=== PATIENT | female | born 1960 | race Caucasian/White ===

== ENCOUNTER 2019-03-15 15:39 | Inpatient (IN) | payer OTHER ==
[2019-03-15 16:48] LABS: Glucose,Whole Blood 134 mg/dL (75-99)
[2019-03-15] MEDS ORDERED: LIDOCAINE 1% INJ 10MG/ML (20 ML MDV) ONE (17:07)
[2019-03-15] MEDS ORDERED: VERAPAMIL 2.5 MG/ML 2 ML AMP ONE (17:07)
[2019-03-15] MEDS ORDERED: HEPARIN SODIUM 1,000 UN/ML (10ML VL) ONE (17:44)
[2019-03-15] MEDS ORDERED: IV FLUID CONTINUATION 1,000 ML IV ONE (17:47)
[2019-03-15] MEDS ORDERED: MIDAZOLAM (PF) 2 MG/2 ML VIAL IV ONE (17:56)
[2019-03-15] MEDS ORDERED: LIDOCAINE 1% INJ 10MG/ML (20 ML MDV) SQ ONE (18:00)
[2019-03-15] MEDS: VERAPAMIL SYRINGE (5 MG/10 ML) INTRAARTER ONE ×2 (18:01→18:28)
[2019-03-15] MEDS ORDERED: BIVALIRUDIN BOLUS 250 MG/50 ML IV ONE (18:14)
[2019-03-15] MEDS ORDERED: BIVALIRUDIN 250 MG in SODIUM CHLORIDE 0.9% 50 ML IV ONE (18:14)
[2019-03-15] MEDS: NITROGLYCERIN 1000MCG/10ML SYRINGE INTRACORON ONE ×2 (18:15→18:20)
[2019-03-15] MEDS ORDERED: PRASUGREL 10 MG TAB ONE (18:24)
[2019-03-15] MEDS ORDERED: PRASUGREL 10 MG TAB PO ONE (18:26)
[2019-03-15] MEDS ORDERED: IOPAMIDOL-370 125ML BTL INJ ONE (18:27)
[2019-03-15] MEDS ORDERED: MAG HYDROX/AL HYDROX/SIMETH 30 ML CUP PO PRN (18:35)
[2019-03-15] MEDS ORDERED: NITROGLYCERIN SL TABS 0.4 MG TAB SUBLINGUAL PRN (18:35)
[2019-03-15] MEDS ORDERED: RX INFO: IV CONTRAST WAS GIVEN 1 EACH MISC MISCELLANE PRN (18:35)
[2019-03-15] MEDS ORDERED: ATROPINE SULFATE 0.1 MG/ML 10ML SYRINGE IV PRN (18:35)
[2019-03-15] MEDS ORDERED: ZOLPIDEM 5 MG TAB PO PRN (18:35)
[2019-03-15] MEDS ORDERED: SODIUM CHLORIDE 0.9% 1,000 ML IV SCH (18:45)
[2019-03-15] MEDS: ATORVASTATIN 80 MG TAB PO SCH (21:12)
[2019-03-15] MEDS: METOPROLOL TARTRATE 25 MG TAB PO SCH (21:12)
--- NOTE | 2019-03-15 23:58 | CC ---
CARDIAC CATHETERIZATION REPORT DATE OF SERVICE: March 15, 2019 PERFORMING PHYSICIAN: Sanchez Gross MD, mechanic foreman. PROCEDURE PERFORMED: 1. Selective right and left coronary angiogram. 2. Left heart catheterization. 3. Successful stenting of the mid LAD using 3.0 x 18 mm Xience ALLISON with good angiographic results and with excellent angiographic results and reduction of stenosis from 99% to 0%. INDICATION: This is a 58-year-old female patient with end-stage renal disease going to start hemodialysis soon as well as history of diabetes, hypertension, and dyslipidemia, presented today to [facility] Emergency Room with chest discomfort and ruled in for acute non ST elevation myocardial infarction. The troponin was normal. The EKG showed dynamic changes in the anteroseptal leads concerning for severe underlying coronary artery disease. We did check with the parking technician, Dr. Reddy, who did give us the okay to proceed with coronary angiogram. APPROACH: Right radial artery. COMPLICATION: None. LEVEL OF SEDATION: Moderate with sedation length of 30 minutes. PROCEDURE DESCRIPTION: After obtaining an informed consent, the patient was brought to the cardiac label pinker. The right radial artery was cannulated using micropuncture technique, the micropuncture wire passed easily then I placed a 6-Occitan sheath 11 cm in the right radial artery. After that I gave the patient 2 mg of verapamil IA. I did selective right and left coronary angiogram. Selective right coronary angiogram was performed using JR4 catheter and selective left coronary angiogram was performed using JL3 guide. Left heart catheterization was performed using the JR4 catheter which crossed the aortic valve. Then I did pullback across aortic valve after flushing the catheter. The procedure was completed without any complication. SELECTIVE CORONARY ANGIOGRAM: 1. The right coronary artery is a large caliber vessel and is a dominant vessel. The RCA has mild disease only. Distally bifurcates into PDA and PLV branches, both appeared to be angiographically normal. 2. The left main is angiographically normal. It bifurcates into the left circumflex and left anterior descending artery. 3. The left circumflex is a large caliber vessel. It is a nondominant vessel. The circumflex itself appears to be angiographically normal and gives rise into a large OM branch in the midportion which appeared to be normal. 4. The LAD: The proximal LAD appeared to be angiographically normal. The mid LAD appeared to have a tubular lesion in the range of 90% to 95%. The LAD distally appeared to be normal. HEMODYNAMICS: The left ventricular end-diastolic pressure was about 10 mmHg without significant gradient across the aortic valve. PCI OF THE LAD: Anticoagulation was initiated using Angiomax. Subsequently I did engage the left main using JL3 guide. I did wire the LAD using a run-through wire. After that, I did balloon angioplasty using 3.0 x 15 mm balloon before I deployed 3.0 x 18 mm Xience ALLISON where the stent was positioned under fluoroscopy guidance and deployed under 18 atmospheres for 20 seconds with the following angiogram showing good angiographic results. The procedure was completed without any complication. CONCLUSION: 1. Acute non-ST elevation myocardial infarction in this 58-year-old female patient with end-stage renal disease, diabetes, hypertension, and dyslipidemia. 2. Critical disease involving the mid LAD. I did successful stenting of the mid LAD with a Xience drug-eluting stent, which was 3.0 x 18 mm with an excellent angiographic results and reduction of stenosis from 99% to 0%. POSTPROCEDURE MANAGEMENT: 1. Dual anti-platelet therapy. 2. Risk factors modifications. 3. Follow up with the patient. MMODL / IJN: [id number] /
--- NOTE | 2019-03-16 00:25 | LTR ---
DATE OF SERVICE: March 15, 2019. Dear Dr. Durand: Ms. Ro Adams underwent a heart catheterization and that revealed critical disease involving the mid LAD. I did successful stenting of the LAD with good angiographic results and without any complication. Thank you for allowing me to participate in her care and please do not hesitate to call if you have any question or concerns. Sincerely, JAM / KIERRAN: [id number] /
[2019-03-16 05:55] LABS: Basophils % (A) 1 %; Eosinophils # (A) 0.2 k/uL (0-0.7); Eosinophils % (A) 3 %; HCT 38.3 % (34.0-46.0); HGB 11.9 gm/dL (11.4-16.0); Lymphocytes # (A) 1.6 k/uL (1.0-4.8); Lymphocytes % (A) 24 %; MCH 27.9 pg (25.0-35.0); MCHC 30.9 g/dL (31.0-37.0); MCV 90.3 fL (80.0-100.0); Monocytes # (A) 0.3 k/uL (0-1.0); Monocytes % (A) 4 %; Neutrophils # (A) 4.5 k/uL (1.3-7.7); Neutrophils % (A) 66 %; Platelet Count 233 k/uL (150-450); RBC 4.24 m/uL (3.80-5.40); RDW 15.3 % (11.5-15.5); WBC 6.8 k/uL (3.8-10.6)
[2019-03-16 06:12] LABS: Calcium 8.9 mg/dL (8.4-10.2); Potassium 4.2 mmol/L (3.5-5.1)
--- NOTE | 2019-03-16 07:57 | P.PN ---
Progress Note - Text Progress Note Date: 03/16/19 This is a 58-year-old female patient with end-stage renal disease, diabetes, hypertension, and dyslipidemia, presented to [facility] with a chest discomfort and ruled in for acute non-ST patient myocardial infarction but subsequently she was transferred to [facility] where she underwent a heart catheterization and was found to have critical disease involving the mid LAD. She underwent successful stenting of the mid LAD. On follow-up with her today, she is asymptomatic. The chest discomfort has resolved completely. She is on dual antiplatelet therapy along with statin. The creatinine is 3.6. An echo was performed at the other hospital and revealed normal LV function. She continues to follow with the nephrology team and she possibly need to start dialysis very soon. From the cardiac standpoint of view, the patient can be transferred out of the ICU. Assessment #1 acute non-ST patient myocardial infarction #2 end-stage renal disease #3 multiple comorbid conditions including diabetes, hypertension, and dyslipidemia #4 history of smoking Plan #1 continue the current medical regimen #2 transferred out of the ICU #3 possible discharge in the next 24 hours
[2019-03-16] MEDS: METOPROLOL TARTRATE 25 MG TAB PO SCH ×2 (08:33→20:39)
[2019-03-16] MEDS: ASPIRIN 325 MG TAB PO SCH (08:33)
[2019-03-16 12:10] VITALS: BMI 26.7
--- NOTE | 2019-03-16 13:08 | P.PN ---
Subjective Patient is seen in follow-up for chronic kidney disease stage V. Patient states she follows with a respite worker out of [place] but now wants to follow-up in our office. She underwent cardiac catheterization yesterday and had a stent placed to the LAD. She has been voiding. No vomiting or diarrhea. No chest pain or shortness of breath. No edema. Vital signs are stable. General: The patient appeared well nourished and normally developed. HEENT: Head exam is unremarkable. Neck is without jugular venous distension. LUNGS: Lungs are clear to auscultation and percussion. Breath sounds decreased. HEART: Rate and Rhythm are regular. First and second heart sounds normal. No murmurs, rubs or gallops. ABDOMEN: Abdominal exam reveals normal bowel sounds. Non-tender and non- distended. No evidence of peritonitis. EXTREMITITES: No clubbing, cyanosis, or edema. Objective - Vital Signs Vital signs: Vital Signs Temp 98.0 F 03/16/19 08:00 Pulse 56 L 03/16/19 12:00 Resp 16 03/16/19 12:00 BP 115/45 03/16/19 12:00 Pulse Ox 97 03/16/19 12:00 Intake & Output 03/15/19 03/16/19 03/16/19 18:59 06:59 18:59 Intake Total 114.16 750 300 Output Total 0 1125 Balance 114.16 -375 300 Weight 70.45 kg 70.7 kg 70.7 kg Intake: IV 114.16 Intake, IV Titration 750 300 Amount Bivalirudin 250 mg In 50 Sodium Chloride 0.9% 50 ml @ 0 mls/hr IV .[employer] Rx#:[id number] Sodium Chloride 0.9% 1, 700 300 000 ml @ 75 mls/hr IV . [id number] [facility] Rx#:[id number] Output: Urine 0 1125 - Labs CBC & Chem 7: 03/16/19 05:17 03/16/19 05:17 Labs: Abnormal Lab Results - Last 24 Hours (Table) 03/15/19 03/16/19 03/16/19 Range/Units 16:44 05:17 05:17 MCHC 30.9 L (31.0-37.0) g/dL Chloride 115 H (98-107) mmol/L Carbon Dioxide 17 L (22-30) mmol/L BUN 43 H (7-17) mg/dL Creatinine 3.63 H (0.52-1.04) mg/dL Glucose 116 H (74-99) mg/dL POC Glucose (mg/dL) 134 H (75-99) mg/dL Assessment and Plan Plan: Assessment: 1. Chronic kidney disease stage V etiologies likely nephrosclerosis. Patient was following with a respite worker out of [place]. She now wants to follow-up in our office. 2. Coronary artery disease status post cardiac catheterization with stent placement to the LAD. 3. Metabolic acidosis secondary to chronic kidney disease. 4. Hypertension with chronic kidney disease. Controlled. Plan: Hep-Lock IV fluids. Add oral sodium bicarbonate. Check UA. Stable to be discharged home from nephrology standpoint. Follow up outpatient in the next 1-2 weeks for preparation for renal replacement therapy. No urgent need for renal replacement therapy at this time.
[2019-03-16] MEDS: SODIUM BICARBONATE TAB 650 MG TAB PO SCH ×2 (13:42→20:40)
[2019-03-16 14:06] VITALS: PULSE 59
[2019-03-16] MEDS ORDERED: CLOPIDOGREL 75 MG TAB PO ONE (14:39)
[2019-03-16] MEDS ORDERED: PRASUGREL 10 MG TAB PO SCH (18:36)
--- NOTE | 2019-03-16 19:27 | P.HPIM ---
History of Present Illness H&P Date: 03/16/19 Chief Complaint: Chest Pain Patient is a 58-year-old female with a known history of hypertension, history of DVT, chronic kidney disease stage V initially presents to [facility] with complaints of chest pain mainly left retrosternal squeezing pain and felt heaviness in the left arm and was found to have non-ST elevation VA. Patient was also having nausea and diaphoresis. No headache or dizziness or lightheadedness. Denied any history of prior coronary artery disease. Patient was eventually transferred to [facility] for cardiac intervention. Patient underwent cardiac catheterization and successful stenting of mid LAD. Currently patient denied any complaints of chest pain or shortness of breath. Patient is being followed by cardiology and nephrology was consulted due to stage V chronic kidney disease. 2-D echo cardiac exam showed normal ejection fraction BUN 43 and creatinine 3.63 Review of Systems Constitutional: Patient denies any fever or chills . No generalized weakness or weight loss. Abdomen: Patient denied nausea vomiting and diarrhea and abdominal pain. Cardiovascular: Patient denies any chest pain or short of breath no palpitations. Respiratory: patient denied any cough is from production. No shortness of breath Neurologic: Patient denied any numbness or tingling headache. Musculoskeletal: Patient denies any complaints of joint swelling or deformity. Skin: Negative Psychiatric: Negative Endocrine: No heat or cold intolerance. No recent weight gain. Genitourinary: No dysuria or hematuria. All other 14 point ROS negative except the above Past Medical History Past Medical History: Coronary Artery Disease (CAD), Deep Vein Thrombosis (DVT), Hyperlipidemia, Hypertension, Myocardial Infarction (VA), Pneumonia, Renal Disease Last Myocardial Infarction Date:: 03/15/19 History of Any Multi-Drug Resistant Organisms: None Reported Past Surgical History: Section, Heart Catheterization With Stent Past Anesthesia/Blood Transfusion Reactions: No Reported Reaction Date of Last Stent Placement:: 03/15/19 Past Psychological History: No Psychological Hx Reported Smoking Status: Current every day smoker Past Alcohol Use History: None Reported Past Drug Use History: Marijuana - Past Family History Father Family Medical History: CVA/TIA Mother Family Medical History: Cancer, CVA/TIA, Diabetes Mellitus, Dialysis Additional Family Medical History / Comment(s): Colon Cancer Medications and Allergies Home Medications Medication Instructions Recorded Confirmed Type Atorvastatin Calcium [Lipitor] 20 mg PO DAILY 03/16/19 03/16/19 History Cholecalciferol [Vitamin D3 (25 1,000 unit PO DAILY 03/16/19 03/16/19 History Mcg = 1000 Iu)] Hydrochlorothiazide [Hydrodiuril] 12.5 mg PO DAILY 03/16/19 03/16/19 History amLODIPine [Norvasc] 10 mg PO DAILY 03/16/19 03/16/19 History Allergies Allergy/AdvReac Type Severity Reaction Status Date / Time No Known Allergies Allergy Verified 03/15/19 20:22 Physical Exam Vitals: Vital Signs Temp Pulse Resp BP Pulse Ox 03/16/19 11:00 53 L 16 140/93 98 03/16/19 10:00 51 L 18 112/75 94 L 03/16/19 09:00 54 L 18 112/75 95 03/16/19 08:00 98.0 F 56 L 18 120/61 94 L 03/16/19 07:00 61 52 H 120/61 93 L 03/16/19 06:00 68 20 108/52 94 L 03/16/19 05:00 64 12 108/52 96 03/16/19 04:00 61 18 139/77 93 L 03/16/19 03:00 98.7 F 63 26 H 114/71 95 03/16/19 02:00 58 L 21 107/73 96 03/16/19 01:00 59 L 14 133/71 94 L 03/16/19 00:00 98.4 F 69 20 111/58 94 L 03/15/19 23:32 94 L 03/15/19 23:00 61 17 131/70 95 03/15/19 22:30 56 L 19 145/86 94 L 03/15/19 22:00 62 7 L 151/101 96 03/15/19 21:30 62 14 98 03/15/19 21:15 67 20 147/83 97 03/15/19 21:00 63 18 135/83 96 03/15/19 20:45 148/91 03/15/19 20:30 63 9 L 152/96 98 03/15/19 20:15 57 L 15 145/101 98 03/15/19 20:00 98.5 F 61 15 145/88 98 03/15/19 19:45 63 7 L 141/85 98 03/15/19 19:30 65 27 H 119/74 97 03/15/19 19:15 62 4 L 134/82 95 03/15/19 19:00 62 11 L 139/87 92 L 03/15/19 18:40 65 10 L 139/87 92 L 03/15/19 17:00 98.3 F 64 10 L 139/91 97 03/15/19 16:42 14 97 Intake and Output 03/15/19 03/16/19 03/16/19 22:59 06:59 14:59 Intake Total 339.16 525 300 Output Total 550 575 Balance -210.84 -50 300 Intake: IV 114.16 Intake, IV Titration 225 525 300 Amount Bivalirudin 250 mg In 50 Sodium Chloride 0.9% 50 ml @ 0 mls/hr IV .[employer] Rx#:[id number] Sodium Chloride 0.9% 1, 175 525 300 000 ml @ 75 mls/hr IV . [id number] [facility] Rx#:[id number] Output: Urine 550 575 Other: Weight 70.45 kg 70.7 kg PHYSICAL EXAMINATION: Patient is lying in the bed comfortably, no acute distress, awake alert and oriented.. HEENT: Normocephalic. Neck is supple. Pupils reactive. Nostrils clear. Oral cavity is moist. Ears reveal no drainage. Neck reveals no JVD, carotid bruits, or thyromegaly. CHEST EXAMINATION: Trachea is central. Symmetrical expansion. Lung hua clear to auscultation and percussion. CARDIAC: Normal S1, S2 with no gallops. No murmurs ABDOMEN: Soft. Bowel sounds normal. No organomegaly. No abdominal bruits. Extremities: reveal no edema. No clubbing or cyanosis Neurologically awake, alert, oriented x3 with well-coordinated movements. No focal deficits noted Skin: No rash or skin lesions. Psychiatric: Coperative. Nonsuicidal Musculoskeletal: No joint swelling or deformity. Normal range of motion. Results CBC & Chem 7: 03/16/19 05:17 03/16/19 05:17 Labs: Abnormal Lab Results - Last 24 Hours (Table) 03/15/19 03/16/19 03/16/19 Range/Units 16:44 05:17 05:17 MCHC 30.9 L (31.0-37.0) g/dL Chloride 115 H (98-107) mmol/L Carbon Dioxide 17 L (22-30) mmol/L BUN 43 H (7-17) mg/dL Creatinine 3.63 H (0.52-1.04) mg/dL Glucose 116 H (74-99) mg/dL POC Glucose (mg/dL) 134 H (75-99) mg/dL Thrombosis Risk Factor Assmnt - DVT/VTE Prophylaxis DVT/VTE Prophylaxis: Pharmacologic Prophylaxis ordered - Choose All That Apply Any of the Below Risk Factors Present?: Yes Each Factor Represents 1 point: Acute VA, Age 41-60 years, Obesity (BMI >25) Other Risk Factors: Yes Each Risk Factor Represents 3 Points: History of DVT/PE Thrombosis Risk Factor Assessment Total Risk Factor Score: 6 Thrombosis Risk Factor Assessment Level: High Risk Assessment and Plan Assessment: Acute non-ST elevated VA. Status post cardiac catheterization and stenting of the mid LAD. Chronic kidney disease stage V Hypertension Hyperlipidemia History of DVT Nicotine addiction History of marijuana use DVT prophylaxis Plan: Patient is currently status post mid LAD stent placement on 03/15/2019. Patient will be continued on aspirin Plavix, statins and metoprolol. Nephrology has seen the patient due to chronic kidney stage V and is planning for renal replacement therapy in the near future. Continue with telemetry monitoring. Further conditions based on the clinical course. Smoking cessation has been counseled extensively. Time with Patient: Greater than 30
[2019-03-16] MEDS: ATORVASTATIN 80 MG TAB PO SCH (20:40)
[2019-03-16] MEDS: NICOTINE 21MG/24HR PATCH TRANSDERM SCH (21:54)
[2019-03-17 01:58] LABS: Appearance,Urine Clear (Clear); Bilirubin,Urine Negative (Negative); Blood,Urine Trace (Negative); Color,Urine Light Yellow; Glucose,Urine (UA) Negative (Negative); Ketones,Urine Negative (Negative); Leukocyte Esterase,Urine Trace (Negative); Nitrite,Urine Negative (Negative); Protein,Urine 1+ (Negative); RBC,Urine 1 /hpf (0-5); Specific Gravity,Urine 1.008 (1.001-1.035); Squamous Epithelial Cell,Urine 2 /hpf (0-4); Urobilinogen,Urine <2.0 mg/dL (<2.0); WBC,Urine 4 /hpf (0-5)
[2019-03-17 07:03] LABS: Basophils # (A) 0.1 k/uL (0-0.2); Basophils % (A) 1 %; Eosinophils # (A) 0.3 k/uL (0-0.7); Eosinophils % (A) 4 %; HCT 38.2 % (34.0-46.0); HGB 12.2 gm/dL (11.4-16.0); Lymphocytes # (A) 1.7 k/uL (1.0-4.8); Lymphocytes % (A) 21 %; MCH 27.9 pg (25.0-35.0); MCV 87.2 fL (80.0-100.0); Mean Platelet Volume 7.2; Monocytes # (A) 0.4 k/uL (0-1.0); Monocytes % (A) 5 %; Neutrophils # (A) 5.8 k/uL (1.3-7.7); Neutrophils % (A) 69 %; Platelet Count 245 k/uL (150-450); RBC 4.38 m/uL (3.80-5.40); RDW 15.3 % (11.5-15.5); WBC 8.3 k/uL (3.8-10.6)
[2019-03-17 07:19] LABS: Calcium 9.1 mg/dL (8.4-10.2); Potassium 4.6 mmol/L (3.5-5.1)
[2019-03-17] MEDS: ASPIRIN 325 MG TAB PO SCH (08:37)
[2019-03-17] MEDS: METOPROLOL TARTRATE 25 MG TAB PO SCH (08:37)
[2019-03-17] MEDS: SODIUM BICARBONATE TAB 650 MG TAB PO SCH (08:37)
[2019-03-17] MEDS: NICOTINE 21MG/24HR PATCH TRANSDERM SCH (08:37)
[2019-03-17 08:42] VITALS: RESP 16; TEMP 97
[2019-03-17] MEDS ORDERED: CLOPIDOGREL 75 MG TAB PO SCH (09:00)
--- NOTE | 2019-03-17 10:34 | P.PN ---
Subjective Patient is seen in follow-up for chronic kidney disease stage V. Patient states she follows with a audio/video engineer out of [place] but now wants to follow-up in our office. She underwent cardiac catheterization on March 15 and had a stent placed to the LAD. She has been voiding. No vomiting or diarrhea. No chest pain or shortness of breath. No edema. Vital signs are stable. General: The patient appeared well nourished and normally developed. HEENT: Head exam is unremarkable. Neck is without jugular venous distension. LUNGS: Lungs are clear to auscultation and percussion. Breath sounds decreased. HEART: Rate and Rhythm are regular. First and second heart sounds normal. No murmurs, rubs or gallops. ABDOMEN: Abdominal exam reveals normal bowel sounds. Non-tender and non- distended. No evidence of peritonitis. EXTREMITITES: No clubbing, cyanosis, or edema. Objective - Vital Signs Vital signs: Vital Signs Temp 97 F L 03/17/19 08:00 Pulse 59 L 03/16/19 14:00 Resp 16 03/17/19 08:00 BP 125/66 03/17/19 08:00 Pulse Ox 96 03/17/19 08:00 Intake & Output 03/16/19 03/17/19 03/17/19 18:59 06:59 18:59 Intake Total 600 1240 360 Output Total 575 Balance 25 1240 360 Weight 70.7 kg 74.2 kg Intake: Intake, IV Titration 600 Amount Sodium Chloride 0.9% 1, 600 000 ml @ 75 mls/hr IV . [id number] [facility] Rx#:[id number] Oral 1240 360 Output: Urine 575 Other: # Voids 2 2 - Labs CBC & Chem 7: 03/17/19 06:24 03/17/19 06:24 Labs: Abnormal Lab Results - Last 24 Hours (Table) 03/17/19 03/17/19 Range/Units 01:41 06:24 Chloride 113 H (98-107) mmol/L Carbon Dioxide 18 L (22-30) mmol/L BUN 45 H (7-17) mg/dL Creatinine 3.71 H (0.52-1.04) mg/dL Glucose 120 H (74-99) mg/dL Urine Protein 1+ H (Negative) Urine Blood Trace H (Negative) Ur Leukocyte Esterase Trace H (Negative) Assessment and Plan Plan: Assessment: 1. Chronic kidney disease stage V etiologies likely nephrosclerosis. Patient was following with a audio/video engineer out of [place]. She now wants to follow-up in our office. Etiology is nephrosclerosis most likely. She does have 1+ proteinuria on UA. 2. Coronary artery disease status post cardiac catheterization with stent placement to the LAD. 3. Metabolic acidosis secondary to chronic kidney disease. 4. Hypertension with chronic kidney disease. Controlled. Plan: Maintain oral sodium bicarbonate. Check renal ultrasound. Stable to be discharged home from nephrology standpoint. Follow up outpatient in the next 1-2 weeks for preparation for renal replacement therapy. No urgent need for renal replacement therapy at this time.
[2019-03-17 12:05] VITALS: BP 105/63
--- NOTE | 2019-03-17 15:33 | P.PN ---
Subjective Progress Note Date: 03/17/19 This is a 58-year-old female patient with end-stage renal disease, diabetes, hypertension, and dyslipidemia, presented to [facility] with a chest discomfort and ruled in for acute non-ST patient myocardial infarction but subsequently she was transferred to [facility] where she underwent a heart catheterization and was found to have critical disease involving the mid LAD. She underwent successful stenting of the mid LAD. On follow-up with her today, she is asymptomatic. The chest discomfort has resolved completely. She is on dual antiplatelet therapy along with statin. An echo was performed at the other hospital and revealed normal LV function. She continues to follow with the nephrology team and she possibly need to start dialysis very soon. Hemodynamically stable. Objective - Vital Signs Vital signs: Vital Signs Temp 97 F L 03/17/19 08:00 Pulse 59 L 03/16/19 14:00 Resp 16 03/17/19 12:00 BP 105/63 03/17/19 12:00 Pulse Ox 99 03/17/19 12:00 Intake & Output 03/16/19 03/17/19 03/17/19 18:59 06:59 18:59 Intake Total 600 1240 720 Output Total 575 Balance 25 1240 720 Weight 70.7 kg 74.2 kg Intake: Intake, IV Titration 600 Amount Sodium Chloride 0.9% 1, 600 000 ml @ 75 mls/hr IV . [id number] [facility] Rx#:[id number] Oral 1240 720 Output: Urine 575 Other: # Voids 2 2 1 - Exam PHYSICAL EXAMINATION: GENERAL: 58-year-old female in no acute distress at the time of my examination HEENT: Head is atraumatic, normocephalic. Pupils equal, round. Sclera ani cteric. Conjunctiva are clear. Mucous membranes of the mouth are moist. Neck is supple. There is no elevated jugular venous pressure. No carotid bruit is heard. HEART EXAMINATION: Heart S1, S2 normal. No murmur or gallop heard. CHEST EXAMINATION: Lungs are clear to auscultation and precussion. No chest wall tenderness is noted on palpation or with deep breathing. ABDOMEN: Soft, nontender. Bowel sounds are heard. No organomegaly noted. EXTREMITIES: 2+ peripheral pulses with no evidence of peripheral edema and no calf tenderness noted. Right radial site clean and dry, good distal pulse NEUROLOGIC patient is awake, alert and oriented 3 . . - Labs CBC & Chem 7: 03/17/19 06:24 03/17/19 06:24 Labs: Abnormal Lab Results - Last 24 Hours (Table) 03/17/19 03/17/19 Range/Units 01:41 06:24 Chloride 113 H (98-107) mmol/L Carbon Dioxide 18 L (22-30) mmol/L BUN 45 H (7-17) mg/dL Creatinine 3.71 H (0.52-1.04) mg/dL Glucose 120 H (74-99) mg/dL Urine Protein 1+ H (Negative) Urine Blood Trace H (Negative) Ur Leukocyte Esterase Trace H (Negative) Assessment and Plan Plan: Assessment and plan #1 non-ST elevation SC status post angioplasty and stenting of the LAD #2 end-stage renal disease #3 diabetes #4 hypertension #5 hyperlipidemia #6 nicotine dependence Plan Patient may be discharged home today. We'll make her a follow-up appointment to see Dr. Santo in the office post discharge. DNP note has been reviewed, I agree with a documented findings and plan of care. Patient was seen and examined.
--- NOTE | 2019-03-17 16:23 | US ---
EXAMINATION TYPE: US kidneys/renal and bladder DATE OF EXAM: 03/17/2019 COMPARISON: Prior ultrasound dated 08/11/2009 CLINICAL HISTORY: juan. EXAM MEASUREMENTS: Right Kidney: 8.4 x 3.9 x 3.8 cm Left Kidney: 7.7 x 3.0 x 3.6 cm Right Kidney: measures small, cortical thinning Left Kidney: echogenic, measures small, cortical thinning Bladder: wnl as seen, not fully distended There is loss of normal cortical medullary differentiation. Cortical echotexture is increased. IMPRESSION: Findings compatible with medical renal disease. Kidneys have decreased in size compared to prior exam .
== END 2019-03-17 14:40 | disposition home health service (06) | DRG 246 ==
LOC: 2SICU 16:27 → 3SCARD 03-16 15:43
PROVIDERS: ADMIT Family Medicine; ATTEND Family Medicine
PROC: 027034Z Dilation of Coronary Artery, One Artery with Drug-eluting Intraluminal Device, Percutaneous Approach (ICD-10-PCS; principal; 2019-03-15 17:30)
PROC: 4A023N7 Measurement of Cardiac Sampling and Pressure, Left Heart, Percutaneous Approach (ICD-10-PCS; principal; 2019-03-15 17:30)
PROC: B2111ZZ Fluoroscopy of Multiple Coronary Arteries using Low Osmolar Contrast (ICD-10-PCS; principal; 2019-03-15 17:30)
PROC: B2151ZZ Fluoroscopy of Left Heart using Low Osmolar Contrast (ICD-10-PCS; principal; 2019-03-15 17:30)
DX: I21.4 Non-ST elevation (NSTEMI) myocardial infarction (principal); N18.6 End stage renal disease; I12.0 Hypertensive chronic kidney disease with stage 5 chronic kidney disease or end stage renal disease; E87.2 Acidosis; I25.10 Atherosclerotic heart disease of native coronary artery without angina pectoris; E11.22 Type 2 diabetes mellitus with diabetic chronic kidney disease; E78.5 Hyperlipidemia, unspecified; F17.200 Nicotine dependence, unspecified, uncomplicated; I25.2 Old myocardial infarction; Z79.899 Other long term (current) drug therapy; Z80.0 Family history of malignant neoplasm of digestive organs; Z83.3 Family history of diabetes mellitus; Z86.718 Personal history of other venous thrombosis and embolism; Z71.6 Tobacco abuse counseling
CPT/HCPCS: 76770; 80048; 81001; 85025; 93458; C1874

== ENCOUNTER → 2019-03-26 | Outpatient (CLI) | payer OTHER ==
[2019-03-26 15:58] LABS: LDL Cholesterol,Calculated 40.2 mg/dL (0.0-131.0); VLDL Calculation 42.8 mg/dL (5.00-40.00)
== END | disposition home or self-care (01) ==
LOC: LABWHC1 08:51
PROVIDERS: ATTEND Internal Medicine Interventional Cardiology
DX: E78.2 Mixed hyperlipidemia (principal)
CPT/HCPCS: 36415; 80061; 84450; 84460

== ENCOUNTER → 2019-04-08 | Outpatient (CLI) | payer OTHER ==
--- NOTE | 2019-04-08 18:09 | CT ---
EXAMINATION TYPE: CT soft tissue neck wo con DATE OF EXAM: 04/08/2019 COMPARISON: None HISTORY: Cervical lymphadenopathy. BB placed on regions of interest. CT DLP: 366 mGycm CONTRAST: None TECHNIQUE: Axial images at 3 mm thick sections. Reconstructed images in the coronal p roxie and sagittal plane are reviewed. FINDINGS: Limited CT sections are obtained the lung apices. The lung apices appear clear. CT neck: The torus tubarius and fossa of Rosenmuller are normal. Business System Manager spaces are normal. Para nasal sinuses and mastoid air cells are clear. Left parotid gland appears normal. Right parotid gland appears atrophic and fatty infiltrated. Subman dibular glands, are normal. BBs are at the inferior aspects of the bilateral submandibular glands. Pa rapharyngeal spaces are normal. No suspicious adenopathy is evident. The hypopharynx appears within normal limits. Vocal cord level appear symmetrical. Thyroid as visualized is normal. Osseous structures are normal. Emphysematous changes are within the lung hua. Scattered lymph node s with fatty hilum are within the bilateral axillary regions. Mediastinum appears unremarkable. Supra clavicular region is unremarkable. IMPRESSIONS: 1. No suspicious abnormality at the level of the BBs. Normal salivary gland. We present at this level . 2. The right parotid gland appears atrophic.
== END | disposition home or self-care (01) ==
LOC: RADCTMAIN 15:23
PROVIDERS: ATTEND Family Medicine
DX: R59.1 Generalized enlarged lymph nodes (principal)
CPT/HCPCS: 70490

== ENCOUNTER → 2019-06-04 | Outpatient (CLI) | payer OTHER ==
[2019-06-04 13:25] LABS: Anisocytosis Slight; HCT 39.7 % (34.0-46.0); HGB 12.6 gm/dL (11.4-16.0); Hypochromasia Slight; MCHC 31.8 g/dL (31.0-37.0); MCV 91.2 fL (80.0-100.0); Mean Platelet Volume 7.4; Platelet Count 228 k/uL (150-450); RBC 4.35 m/uL (3.80-5.40); RDW 16.8 % (11.5-15.5); WBC 8.6 k/uL (3.8-10.6)
[2019-06-04 13:54] LABS: Appearance,Urine Cloudy (Clear); Bilirubin,Urine Negative (Negative); Blood,Urine Small (Negative); Color,Urine Yellow; Glucose,Urine (UA) 1+ (Negative); Hyaline Casts,Urine 3 /lpf (0-2); Ketones,Urine Negative (Negative); Leukocyte Esterase,Urine Negative (Negative); Mucus,Urine Rare /hpf; Nitrite,Urine Negative (Negative); Protein,Urine 3+ (Negative); RBC,Urine 1 /hpf (0-5); Specific Gravity,Urine 1.017 (1.001-1.035); Squamous Epithelial Cell,Urine 2 /hpf (0-4); Urobilinogen,Urine <2.0 mg/dL (<2.0); WBC,Urine 1 /hpf (0-5)
[2019-06-04 19:00] LABS: Iron Saturation 17.45 (12.00-45.00)
[2019-06-04 19:09] LABS: Vitamin D 25 Hydroxy 19.9 ng/mL (30.0-100.0)
[2019-06-04 19:11] LABS: African American GFR (CKD) 14.7 (60.0-200.0); Albumin/Globulin Ratio 1.6 (1.60-3.17); Anion Gap 7.9 mmol/L (4.00-12.00); BUN/Creat Ratio 11.89 Ratio (12.00-20.00); Calcium 8.9 mg/dL (8.7-10.3); Carbon Dioxide 18.1 mmol/L (21.6-31.8); Globulin 2.5 g/dL (1.6-3.3); Magnesium 1.7 mg/dL (1.5-2.4); Phosphorus 4.9 mg/dL (2.4-5.1); Potassium 5.8 mmol/L (3.5-5.5); Total Bilirubin 0.3 mg/dL (0.3-1.2); Total Protein 6.5 g/dL (6.2-8.2); Uric Acid 5.9 mg/dL (2.9-7.7)
[2019-06-04 20:31] LABS: Creatinine,Urine Random 147.7 mg/dL
[2019-06-04 20:33] LABS: Total Protein,Urine Random 366.1 mg/dL (0.0-13.5)
== END | disposition home or self-care (01) ==
LOC: LABWHC1 13:04
PROVIDERS: ATTEND Nurse Practitioner Family
DX: N39.0 Urinary tract infection, site not specified (principal); N18.5 Chronic kidney disease, stage 5; D63.1 Anemia in chronic kidney disease; R80.9 Proteinuria, unspecified; E55.9 Vitamin D deficiency, unspecified; M10.9 Gout, unspecified; N25.81 Secondary hyperparathyroidism of renal origin
CPT/HCPCS: 36415; 80053; 81001; 82306; 82570; 82728; 83540; 83550; 83735; 83970; 84100; 84156; 84550; 85027

== ENCOUNTER 2019-11-11 11:45 | Day surgery (SDC) | payer OTHER ==
[2019-11-09 15:48] VITALS: BMI 27.4
[~2019-11-11 11:45] MED LIST: DEXAMETHASONE SOD PHOSPHATE 10 MG/ML 1 ML VIAL IV ONE; HEPARIN SODIUM,PORCINE 5,000 UNIT/ML 1 ML VIAL SQ ONE; HYDROmorphone 0.5 MG/0.5 ML SYRINGE IVP PRN; LACTATED RINGERS 1,000 ML IV SCH; LIDOCAINE 1% 20 ML VIAL (10MG/ML) FOR IV START INTRADERMA PRN; MIDAZOLAM 2 MG/2 ML VIAL IV PRN; ONDANSETRON 4 MG/2 ML VIAL IVP ONE; fentaNYL (PF) 50 MCG/ML 2 ML AMP IV PRN
[2019-11-11 12:23] VITALS: TEMP 97.6
[2019-11-11] MEDS ORDERED: SODIUM CHLORIDE 0.9% 1,000 ML IV ONE (12:30)
[2019-11-11] MEDS ORDERED: PROPOFOL 10 MG/ML 20 ML VIAL IV ONE (13:55)
[2019-11-11] MEDS ORDERED: diphenhydrAMINE 50 MG/ML 1 ML VIAL ONE (13:55)
[2019-11-11] MEDS ORDERED: fentaNYL (PF) 50 MCG/ML 2 ML AMP ONE (13:55)
[2019-11-11] MEDS ORDERED: MIDAZOLAM 2 MG/2 ML VIAL ONE (13:55)
[2019-11-11] MEDS ORDERED: ePHEDrine SULFATE/0.9% NACL/PF 50 MG/5 ML SYRINGE IV ONE (13:55)
[2019-11-11] MEDS ORDERED: BUPIVACAINE (PF) 0.25% 30 ML VIAL SQ ONE ×3 (14:20→14:26)
[2019-11-11] MEDS ORDERED: MINERAL OIL 1 APPLIC/ML OIL TOPICAL ONE ×2 (14:21→14:40)
[2019-11-11] MEDS ORDERED: HYDROcodone/APAP 5-325MG 1 EACH TAB PO PRN (15:07)
[2019-11-11] MEDS ORDERED: NALOXONE 0.4 MG/ML 1 ML VIAL IV PRN (15:07)
--- NOTE | 2019-11-11 15:09 | P.OP ---
Date of Procedure: 11/11/19 Procedure(s) Performed: PREOPERATIVE DIAGNOSIS: Renal failure POSTOPERATIVE DIAGNOSIS: Same PROCEDURE: Peritoneal dialysis catheter insertion SURGEON: Veronika EBL: Minimal ANESTHESIA: Sedation plus local COMPLICATIONS: None OPERATIVE PROCEDURE: The patient was placed in the operative table in the supine position. Her abdomen was prepped and draped in usual sterile fashion. A small vertical incision was made in the left periumbilical location. Dissection down through the subcutaneous tissues took place using electrocautery. The anterior rectus was divided vertically using the scalpel. The rectus was bluntly. The posterior rectus was visualized. An 0 Vicryl pursestring was placed. A small opening in the posterior rectus fascia and peritoneum took place using a Metzenbaum scissors. There were no adhesions to the suture that was placed. The pigtail catheter was advanced into the pelvis over a stylette. No resistance was met. The inner cuff was secured to the fascia using the 0 Vicryl pursestring that was placed. The catheter was tunneled to an exit site in the right lateral lower quadrant. The catheter was connected to the 1 L bag of saline and approximated 800 mL of saline was easily introduced into the peritoneal cavity. The fluid was then allowed to evacuate. The majority of the fluid was returned. The anterior rectus fascia was then reapproximated using a running 0 Vicryl stitch. The subcutaneous tissues reprepped using 3-0 Vicryl sutures and the skin using 4-0 Monocryl sutures. The outpatient dialysis adapter was applied to the end of the catheter. A sterile dressings then applied after Steri-Strips were placed over the incision. DISPOSITION: Stable to recovery room
[2019-11-11] MEDS ORDERED: HYDROcodone/APAP 5-325MG 1 EACH TAB PO ONE (15:33)
[2019-11-11 16:23] VITALS: RESP 18
[2019-11-11 16:29] VITALS: BP 128/75; PULSE 57
== END 2019-11-11 16:38 | disposition home or self-care (01) ==
LOC: OR 11:45
PROVIDERS: ATTEND Surgery
DX: I12.9 Hypertensive chronic kidney disease with stage 1 through stage 4 chronic kidney disease, or unspecified chronic kidney disease (principal); E11.22 Type 2 diabetes mellitus with diabetic chronic kidney disease; N18.9 Chronic kidney disease, unspecified; I25.10 Atherosclerotic heart disease of native coronary artery without angina pectoris; N25.81 Secondary hyperparathyroidism of renal origin; E78.5 Hyperlipidemia, unspecified; F17.210 Nicotine dependence, cigarettes, uncomplicated; Z95.828 Presence of other vascular implants and grafts; Z79.82 Long term (current) use of aspirin; Z79.02 Long term (current) use of antithrombotics/antiplatelets; Z79.899 Other long term (current) drug therapy; Z82.49 Family history of ischemic heart disease and other diseases of the circulatory system; Z80.0 Family history of malignant neoplasm of digestive organs; Z84.1 Family history of disorders of kidney and ureter; Z82.3 Family history of stroke
CPT/HCPCS: 84132; 49421; C1752; J2250; J1200; J1644; J1100; J2405; J3010; J2704

== ENCOUNTER 2021-10-15 11:17 | Inpatient (IN) | payer MEDICARE, OTHER ==
[2021-10-15] MEDS ORDERED: DEXAMETHASONE SOD PHOSPHATE 10 MG/ML 1 ML VIAL IVP STA (11:51)
--- NOTE | 2021-10-15 12:09 | ED ---
SOB HPI - General Chief Complaint: Shortness of Breath Stated Complaint: Covid+/Weakness Time Seen by Provider: 10/15/21 11:23 Source: patient, EMS, RN notes reviewed Mode of arrival: EMS Limitations: no limitations - History of Present Illness Initial Comments: This is a pleasant 61-year-old female who presents with shortness of breath, severe cough, and generalized weakness. Patient was diagnosed with COVID-19. Patient was seen here on Friday and received a monoclonal antibody. Patient states that she actually has been sick for a few weeks. Patient states she is now unable to walk due to the generalized weakness. Patient denies any chest pa in but does have shortness of breath. No nausea or vomiting. Does have diminished appetite. Generalized body aching. No problems with bowel when she urination. No rashes or lesions. No changes in vision or hearing. Mild headache. No neck stiffness. Multiple comorbidities as listed in the past medical and surgical history. - Related Data Home Medications Medication Instructions Recorded Confirmed Metoprolol Tartrate [Lopressor] 12.5 mg PO BID 11/09/19 10/15/21 Torsemide [Demadex] 20 mg PO DAILY 11/09/19 10/15/21 calcitrioL [Rocaltrol] 0.5 mcg PO MOWEFR 11/09/19 10/15/21 Aspirin EC [Ecotrin Low Dose] 81 mg PO DAILY 10/15/21 10/15/21 Atorvastatin [Lipitor] 80 mg PO DAILY 10/15/21 10/15/21 Calcium Acetate [Phoslo] 1,334 mg PO TID 10/15/21 10/15/21 Calcium Acetate [Phoslo] 667 mg PO DAILY PRN 10/15/21 10/15/21 Nitroglycerin Sl Tabs [Nitrostat] 0.4 mg SL Q5M PRN 10/15/21 10/15/21 Ondansetron [Zofran] 4 mg PO Q6H PRN 10/15/21 10/15/21 traZODone HCL 50 - 100 mg PO HS PRN 10/15/21 10/15/21 Previous Rx's Medication Instructions Recorded Albuterol Inhaler [Ventolin Hfa 1 puff INHALATION RT-QID #8 gm 10/12/21 Inhaler] Allergies Allergy/AdvReac Type Severity Reaction Status Date / Time No Known Allergies Allergy Verified 10/15/21 14:17 Review of Systems ROS Statement: Those systems with pertinent positive or pertinent negative responses have been documented in the HPI. ROS Other: All systems not noted in ROS Statement are negative. Past Medical History Past Medical History: Coronary Artery Disease (CAD), Diabetes Mellitus, Deep Vein Thrombosis (DVT), Hyperlipidemia, Hypertension, Myocardial Infarction ([place]), Pneumonia, Renal Disease Additional Past Medical History / Comment(s): varicose veins, diet control diabe tic, renal failure, Last Myocardial Infarction Date:: 03/15/19 History of Any Multi-Drug Resistant Organisms: None Reported Past Surgical History: Section, Heart Catheterization With Stent Additional Past Surgical History / Comment(s): one cardiac stent, vein surgery aristides legs Past Anesthesia/Blood Transfusion Reactions: No Reported Reaction Date of Last Stent Placement:: 03/15/19 Past Psychological History: No Psychological Hx Reported Smoking Status: Former smoker Past Alcohol Use History: None Reported Past Drug Use History: Marijuana - Past Family History Mother Family Medical History: Cancer, Dialysis Additional Family Medical History / Comment(s): Colon Cancer General Exam - General Exam Comments Initial Comments: 61-year-old female who appears to be in distress secondary to shortness of breath or cough. Limitations: no limitations General appearance: alert, in distress Head exam: Present: atraumatic, normocephalic, normal inspection Eye exam: Present: normal appearance, PERRL, EOMI. Absent: scleral icterus, conjunctival injection, periorbital swelling ENT exam: Present: normal exam, mucous membranes moist, TM's normal bilaterally, normal external ear exam Neck exam: Present: normal inspection, full ROM. Absent: tenderness, meningismus, lymphadenopathy Respiratory exam: Present: respiratory distress, rales, rhonchi. Absent: wheezes, stridor Cardiovascular Exam: Present: regular rate, normal rhythm, normal heart sounds. Absent: systolic murmur, diastolic murmur, rubs, gallop, clicks GI/Abdominal exam: Present: soft, normal bowel sounds. Absent: distended, tenderness, guarding, rebound, rigid Extremities exam: Present: normal inspection, full ROM, normal capillary refill. Absent: tenderness, pedal edema, joint swelling, calf tenderness Back exam: Present: normal inspection Neurological exam: Present: alert, oriented X3, CN II-XII intact Psychiatric exam: Present: normal affect, normal mood Skin exam: Present: warm, dry, intact, normal color. Absent: rash Course Vital Signs 10/15/21 10/15/21 11:31 13:18 Temperature 98.9 F 98 F Pulse Rate 65 79 Respiratory 24 20 Rate Blood Pressure 92/49 99/58 O2 Sat by Pulse 97 94 L Oximetry Medical Decision Making - Medical Decision Making Patient presents with cough, body aches, diminished appetite, generalized weakness, likely from COVID-19. Patient received a monoclonal antibody on Friday but is actually worse. Patient will likely need to be admitted. - Lab Data Result diagrams: 10/15/21 12:07 10/15/21 12:07 Lab Results 10/15/21 10/15/21 10/15/21 Range/Units 12:07 12:07 12:07 WBC 5.8 (3.8-10.6) k/uL RBC 4.59 (3.80-5.40) m/uL Hgb 13.8 (11.4-16.0) gm/dL Hct 41.3 (34.0-46.0) % MCV 89.9 (80.0-100.0) fL MCH 30.1 (25.0-35.0) pg MCHC 33.5 (31.0-37.0) g/dL RDW 14.7 (11.5-15.5) % Plt Count 148 L (150-450) k/uL MPV 8.5 Neutrophils % 80 % Lymphocytes % 12 % Monocytes % 5 % Eosinophils % 1 % Basophils % 1 % Neutrophils # 4.6 (1.3-7.7) k/uL Lymphocytes # 0.7 L (1.0-4.8) k/uL Monocytes # 0.3 (0-1.0) k/uL Eosinophils # 0.1 (0-0.7) k/uL Basophils # 0.1 (0-0.2) k/uL PT 9.7 (9.0-12.0) sec INR 0.9 (<1.2) APTT 22.5 (22.0-30.0) sec Sodium 134 L (137-145) mmol/L Potassium 3.3 L (3.5-5.1) mmol/L Chloride 103 (98-107) mmol/L Carbon Dioxide 10 L (22-30) mmol/L Anion Gap 21 mmol/L BUN 92 H (7-17) mg/dL Creatinine 11.19 H* (0.52-1.04) mg/dL Est GFR (CKD-EPI)AfAm 4 (>60 ml/min/1.73 sqM) Est GFR (CKD-EPI)NonAf 3 (>60 ml/min/1.73 sqM) Glucose 153 H (74-99) mg/dL Plasma Lactic Acid Tyson (0.7-2.0) mmol/L Calcium 7.9 L (8.4-10.2) mg/dL Magnesium 1.9 (1.6-2.3) mg/dL Total Bilirubin 0.5 (0.2-1.3) mg/dL AST 37 H (14-36) U/L ALT 20 (4-34) U/L Alkaline Phosphatase 50 (38-126) U/L Troponin I (0.000-0.034) ng/mL NT-Pro-B Natriuret Pep pg/mL Total Protein 6.2 L (6.3-8.2) g/dL Albumin 3.1 L (3.5-5.0) g/dL 10/15/21 10/15/21 10/15/21 Range/Units 12:07 12:07 12:07 WBC (3.8-10.6) k/uL RBC (3.80-5.40) m/uL Hgb (11.4-16.0) gm/dL Hct (34.0-46.0) % MCV (80.0-100.0) fL MCH (25.0-35.0) pg MCHC (31.0-37.0) g/dL RDW (11.5-15.5) % Plt Count (150-450) k/uL MPV Neutrophils % % Lymphocytes % % Monocytes % % Eosinophils % % Basophils % % Neutrophils # (1.3-7.7) k/uL Lymphocytes # (1.0-4.8) k/uL Monocytes # (0-1.0) k/uL Eosinophils # (0-0.7) k/uL Basophils # (0-0.2) k/uL PT (9.0-12.0) sec INR (<1.2) APTT (22.0-30.0) sec Sodium (137-145) mmol/L Potassium (3.5-5.1) mmol/L Chloride (98-107) mmol/L Carbon Dioxide (22-30) mmol/L Anion Gap mmol/L BUN (7-17) mg/dL Creatinine (0.52-1.04) mg/dL Est GFR (CKD-EPI)AfAm (>60 ml/min/1.73 sqM) Est GFR (CKD-EPI)NonAf (>60 ml/min/1.73 sqM) Glucose (74-99) mg/dL Plasma Lactic Acid Tyson 1.5 (0.7-2.0) mmol/L Calcium (8.4-10.2) mg/dL Magnesium (1.6-2.3) mg/dL Total Bilirubin (0.2-1.3) mg/dL AST (14-36) U/L ALT (4-34) U/L Alkaline Phosphatase (38-126) U/L Troponin I 0.026 (0.000-0.034) ng/mL NT-Pro-B Natriuret Pep 634 pg/mL Total Protein (6.3-8.2) g/dL Albumin (3.5-5.0) g/dL - EKG Data EKG Comments: EKG was done at 1154 and reviewed with ED attending physician. Patient had artifact noted. No evidence of ST elevation. Ventricular rate 71. Normal intervals otherwise. Patient does have flipped T waves noted in V5 and V6 when compared to the previous study from October 12 Disposition Clinical Impression: COVID-19, Debility, Chronic renal failure Disposition: ADMITTED IP TO THIS HOSP Condition: Fair Time of Disposition: 15:12
[2021-10-15 12:37] LABS: Albumin 3.1 g/dL (3.5-5.0); Calcium 7.9 mg/dL (8.4-10.2); Magnesium 1.9 mg/dL (1.6-2.3); Potassium 3.3 mmol/L (3.5-5.1); Total Bilirubin 0.5 mg/dL (0.2-1.3); Total Protein 6.2 g/dL (6.3-8.2)
--- NOTE | 2021-10-15 12:43 | XR ---
EXAMINATION TYPE: XR chest 1V portable DATE OF EXAM: 10/15/2021 COMPARISON: Chest x-ray 10/12/2021 HISTORY: Cough, Covid positive, weakness TECHNIQUE: Single frontal view of the chest is obtained. FINDINGS: Patchy bilateral airspace disease is noted. No evident pneumothorax or pleural effusion. C ardiac style silhouette is stable. Aorta is dense. There are overlying artifacts. IMPRESSION: Findings similar to prior exam, correlate for pneumonia
[2021-10-15 12:55] LABS: INR 0.9 (<1.2); Partial Thromboplastin Time 22.5 sec (22.0-30.0); Prothrombin Time 9.7 sec (9.0-12.0)
[2021-10-15 13:01] LABS: Basophils # (A) 0.1 k/uL (0-0.2); Basophils % (A) 1 %; Eosinophils # (A) 0.1 k/uL (0-0.7); Eosinophils % (A) 1 %; HCT 41.3 % (34.0-46.0); HGB 13.8 gm/dL (11.4-16.0); Lymphocytes # (A) 0.7 k/uL (1.0-4.8); Lymphocytes % (A) 12 %; MCH 30.1 pg (25.0-35.0); MCHC 33.5 g/dL (31.0-37.0); MCV 89.9 fL (80.0-100.0); Mean Platelet Volume 8.5; Monocytes # (A) 0.3 k/uL (0-1.0); Monocytes % (A) 5 %; Neutrophils # (A) 4.6 k/uL (1.3-7.7); Neutrophils % (A) 80 %; Platelet Count 148 k/uL (150-450); RBC 4.59 m/uL (3.80-5.40); RDW 14.7 % (11.5-15.5); WBC 5.8 k/uL (3.8-10.6)
[2021-10-15] MEDS ORDERED: BENZONATATE 100 MG CAP PO STA (13:23)
[2021-10-15] MEDS ORDERED: ALBUTEROL HFA INHALER INHALATION PRN (15:05)
[2021-10-15 15:56] LABS: Magnesium 1.9 mg/dL (1.6-2.3)
[2021-10-15] MEDS: ACETAMINOPHEN TAB 500 MG TAB PO PRN ×2 (16:45→23:02)
[2021-10-15] MEDS: ENOXAPARIN 30 MG/0.3 ML SYRINGE SQ SCH (16:45)
[2021-10-15] MEDS ORDERED: traZODone HCL 50 MG TAB PO PRN (20:21)
[2021-10-15] MEDS ORDERED: CALCIUM ACETATE 667 MG TAB PO PRN (20:21)
[2021-10-15] MEDS ORDERED: NITROGLYCERIN SL TABS 0.4 MG TAB SUBLINGUAL PRN (20:21)
[2021-10-15] MEDS: METOPROLOL TARTRATE 12.5 MG TAB PO SCH (21:26)
[2021-10-15] MEDS: DIALYSIS (PERIT 1.5%) 2,000 ML 30 G/2,000 ML BAG INTRAPERIT SCH ×2 (22:55)
[2021-10-16] MEDS: ONDANSETRON 4 MG TAB PO PRN (04:22)
[2021-10-16] MEDS: DIALYSIS (PERIT 1.5%) 2,000 ML 30 G/2,000 ML BAG INTRAPERIT SCH ×3 (05:10→17:59)
[2021-10-16 09:05] LABS: HCT 40.4 % (37.2-46.3); HGB 13.7 g/dL (12.0-15.0); MCHC 33.9 g/dL (32.0-37.0); MCV 85.6 fL (80.0-97.0); Mean Platelet Volume 10.4 fL (9.5-12.2); Platelet Count 175 X 10*3/uL (140-440); RBC 4.72 X 10*6/uL (4.10-5.20); RDW 14.8 % (11.5-14.5); WBC 2.71 X 10*3/uL (4.50-10.00)
[2021-10-16] MEDS: DEXAMETHASONE SOD PHOSPHATE 10 MG/ML 1 ML VIAL IV SCH (09:39)
[2021-10-16] MEDS: ASPIRIN 81 MG PO SCH (09:40)
[2021-10-16] MEDS: METOPROLOL TARTRATE 12.5 MG TAB PO SCH ×2 (09:40→21:37)
[2021-10-16] MEDS: CALCIUM ACETATE 667 MG TAB PO SCH ×3 (09:40→17:20)
[2021-10-16] MEDS: ENOXAPARIN 30 MG/0.3 ML SYRINGE SQ SCH (09:40)
[2021-10-16] MEDS: ATORVASTATIN 80 MG TAB PO SCH (09:40)
[2021-10-16] MEDS: TORSEMIDE 20 MG TAB PO SCH (09:40)
[2021-10-16 09:57] LABS: C Reactive Protein 11.8 mg/dL (0.00-0.80)
[2021-10-16 09:59] LABS: African American GFR (CKD) 4.2 (60.0-200.0); Albumin 3.4 g/dL (3.8-4.9); Albumin/Globulin Ratio 1.13 (1.60-3.17); Anion Gap 23.3 mmol/L (10.00-18.00); BUN/Creat Ratio 9.11 Ratio (12.00-20.00); Blood Urea Nitrogen 92.9 mg/dL (9.0-27.0); Calcium 8.6 mg/dL (8.7-10.3); Carbon Dioxide 12.7 mmol/L (20.0-27.5); Non-African American GFR(CKD) 3.6 (60.0-200.0); Potassium 3.6 mmol/L (3.5-5.5); Total Bilirubin 0.2 mg/dL (0.30-1.20); Total Protein 6.4 g/dL (6.2-8.2)
[2021-10-16] MEDS: ALBUTEROL HFA INHALER INHALATION SCH ×3 (12:07→20:44)
[2021-10-16 12:08] LABS: Basophils # (A) 0.01 X 10*3/uL (0.00-0.10); Basophils % (A) 0.4 %; Eosinophils # (A) 0 X 10*3/uL (0.04-0.35); Eosinophils % (A) 0 %; Lymphocytes # (A) 0.47 X 10*3/uL (0.90-5.00); Lymphocytes % (A) 17.3 %; Monocytes # (A) 0.16 X 10*3/uL (0.20-1.00); Monocytes % (A) 5.9 %; Neutrophils # (A) 2.05 X 10*3/uL (1.80-7.70); Neutrophils % (A) 75.7 %
[2021-10-16] MEDS ORDERED: POTASSIUM CHLORIDE ER 20 MEQ TAB.ER PO STA (12:41)
--- NOTE | 2021-10-16 12:44 | P.NPCON ---
History of Present Illness - Reason for Consult end stage renal disease - History of Present Illness Reason for consultation: End-stage renal disease History of present illness: Patient is a 61-year-old female seen in consultation for end-stage renal disease. She is maintained on peritoneal dialysis. Patient tested positive for coronavirus on 10/12/2021. At that time she was discharged home from the hospital. Patient presented to the hospital with generalized weakness. Patient was unable to do peritoneal dialysis at home. She states she hasn't had dialysis in about a week and a half. She admits to productive cough. She's been afebrile this admission. Blood pressure stable. No vomiting or diarrhea. Oral intake is poor. Blood cultures positive for staph epidermidis. Denies abdominal pain. Vital signs are stable. General: On nasal cannula. HEENT: Head exam is unremarkable. LUNGS: Breath sounds decreased. HEART: Rate and Rhythm are regular. ABDOMEN: Soft, no distention. EXTREMITITES: No edema. Past Medical History Past Medical History: Coronary Artery Disease (CAD), Diabetes Mellitus, Deep Vein Thrombosis (DVT), Hyperlipidemia, Hypertension, Myocardial Infarction ([place]), Pneumonia, Renal Disease Additional Past Medical History / Comment(s): varicose veins, diet control diabetic, renal failure, Last Myocardial Infarction Date:: 03/15/19 History of Any Multi-Drug Resistant Organisms: None Reported Past Surgical History: Section, Heart Catheterization With Stent Additional Past Surgical History / Comment(s): one cardiac stent, vein surgery aristides legs Past Anesthesia/Blood Transfusion Reactions: No Reported Reaction Date of Last Stent Placement:: 03/15/19 Past Psychological History: No Psychological Hx Reported Smoking Status: Former smoker Past Alcohol Use History: None Reported Additional Past Alcohol Use History / Comment(s): smoking 1/2-1 PPD, has smoked for 40 yrs Past Drug Use History: Marijuana - Past Family History Mother Family Medical History: Cancer, Dialysis Additional Family Medical History / Comment(s): Colon Cancer Medications and Allergies Home Medications Medication Instructions Recorded Confirmed Type Metoprolol Tartrate [Lopressor] 12.5 mg PO BID 11/09/19 10/15/21 History Torsemide [Demadex] 20 mg PO DAILY 11/09/19 10/15/21 History calcitrioL [Rocaltrol] 0.5 mcg PO MOWEFR 11/09/19 10/15/21 History Albuterol Inhaler [Ventolin Hfa 1 puff INHALATION RT-QID #8 gm 10/12/21 10/15/21 Rx Inhaler] Aspirin EC [Ecotrin Low Dose] 81 mg PO DAILY 10/15/21 10/15/21 History Atorvastatin [Lipitor] 80 mg PO DAILY 10/15/21 10/15/21 History Calcium Acetate [Phoslo] 1,334 mg PO TID 10/15/21 10/15/21 History Calcium Acetate [Phoslo] 667 mg PO DAILY PRN 10/15/21 10/15/21 History Nitroglycerin Sl Tabs [Nitrostat] 0.4 mg SL Q5M PRN 10/15/21 10/15/21 History Ondansetron [Zofran] 4 mg PO Q6H PRN 10/15/21 10/15/21 History traZODone HCL 50 - 100 mg PO HS PRN 10/15/21 10/15/21 History Allergies Allergy/AdvReac Type Severity Reaction Status Date / Time No Known Allergies Allergy Verified 10/15/21 14:17 Physical Exam Vitals: Vital Signs Temp Pulse Pulse Resp BP BP Pulse Ox 10/16/21 08:00 17 10/16/21 05:18 97.7 F 56 L 18 118/63 96 10/16/21 05:12 97.5 F L 55 L 14 118/63 95 10/16/21 02:00 95.5 F L 58 L 19 119/70 97 10/15/21 21:20 97.4 F L 59 L 14 115/69 96 10/15/21 16:59 97.8 F 87 20 149/54 93 L 10/15/21 13:18 98 F 79 20 99/58 94 L Intake and Output 10/15/21 10/16/21 10/16/21 22:59 06:59 14:59 Other: Weight 74.843 kg Results - Lab Results Most recent lab results Calcium 8.6 mg/dL (8.7-10.3) L 10/16/21 06:33 Magnesium 1.9 mg/dL (1.6-2.3) 10/15/21 12:07 Magnesium 1.9 mg/dL (1.6-2.3) 10/15/21 12:07 10/16/21 06:33 10/16/21 06:33 Assessment and Plan Plan: Assessment: 1. End-stage renal disease maintained on peritoneal dialysis. 2. Acute hypoxic respiratory failure. 3. COVID-19 pneumonia. 4. Metabolic acidosis secondary to chronic kidney disease. 5. 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 6. Gram-positive bacteremia. 7. Hypokalemia from poor intake and PD losses. Plan:. Maintain current PD exchanges - 2 L every 6 hours and 1.5% dextrose solution. Check dialysate cell count, culture and Gram stain. Consults infectious disease. Check phosphorus level. Follow-up cultures. Replace potassium. Add oral bicarb. Start gentle IV hydration. Thank you for the consultation. I will continue to follow the patient with you during her hospital stay.
[2021-10-16] MEDS: DEXTROSE 5% IN WATER 1,000 ML with SODIUM BICARB (1 MEQ/ML) 150 ML IV SCH (13:38)
[2021-10-16] MEDS: SODIUM BICARBONATE TAB 650 MG TAB PO SCH ×3 (13:38→21:37)
--- NOTE | 2021-10-16 14:03 | HP ---
HISTORY AND PHYSICAL CHIEF COMPLAINT: Shortness of breath, malaise, myalgias and generalized weakness. HISTORY OF PRESENT ILLNESS: This is another admission for this 61-year-old white female with stage 5 CKD, on dialysis. She is doing peritoneal dialysis and has missed some of this several days because of illness. She was diagnosed with COVID-19 and did come to the emergency room on October 12 and did receive a monoclonal antibody infusion. She continued to have trouble at home with weakness, shortness of breath, and malaise. She came back to the emergency room and was acutely ill. She had a fever and hypotension. REVIEW OF SYSTEMS: She is simply states that she feels terrible with weakness, myalgias and shortness of breath. Past medical history, family history, personal and social histories are otherwise unremarkable except that she is diabetic and she has COPD. She has hypertension. MEDICATIONS: Can be found in her medical listing from her history. She has been a smoker in the past and continues to be. PHYSICAL EXAMINATION: Blood pressure is 90/40 with a pulse 76 and regular. Respirations were 36 and temperature is 99.7. In general she appeared to be dehydrated, chronically ill. She had generalized weakness. Head, ears, eyes, nose, mouth and throat were normal except for dry mucous membranes. NECK: Supple. Neck veins were not distended. Chest demonstrated decreased breath sounds with scattered rales and rhonchi. Cardiac exam was normal. Abdomen is soft and nontender. Extremities: Normal. Neurologically other than being weak, she is intact. IMPRESSION: She is admitted to the hospital with diagnoses: 1. COVID-19. 2. Dehydration. 3. Chronic obstructive pulmonary disease. 4. Hypotension. 5. Stage 5 CKD on dialysis. PLAN: 1. Bedrest. 2. IV fluids. 3. Consult Pulmonology and Nephrology. 4. Diuresis. MMODL / IJN: [id number] /
--- NOTE | 2021-10-16 14:08 | PN ---
PROGRESS NOTE DATE OF SERVICE: 10/16/2021 CHIEF COMPLAINT: COVID-19 with weakness, malaise and renal failure. HISTORY OF PRESENT ILLNESS: This lady is still extremely weak and complaining of myalgias and shortness of breath. She has had no vomiting. PHYSICAL EXAMINATION: She remains dry. Chest is clear. Cardiac exam is normal. Abdomen is soft, nontender. IMPRESSION: 1. COVID pneumonia. 2. Stage 5 CKD. 3. Dehydration. PLAN: Continue with IV fluids and wait for Nephrology to handle her dialysis. MMODL / IJN: [id number] /
[2021-10-16] MEDS ORDERED: PIPERACILLIN-TAZOBACTAM 3.375 GM in SODIUM CHLORIDE 0.9% 100 ML IVPB ONE (16:15)
--- NOTE | 2021-10-16 17:22 | P.CNPUL ---
History of Present Illness Consult date: 10/16/21 Requesting physician: Derick Durand Reason for consult: dyspnea Chief complaint: Shortness of breath, COVID-19 History of present illness: This is a 61-year-old white female patient with past medical history of hypertension, hyperlipidemia, previous MN, diabetes mellitus type 2, coronary artery disease, former smoker, end-stage renal disease on peritoneal dialysis who came into the emergency department yesterday on 10/15/2021 for evaluation of worsening shortness of breath, cough, generalized weakness. Patient was diagnosed with COVID-19, she was here on 10/11/2021 and received a monoclonal antibody. Patient reports onset of symptoms a week ago. Patient has been increasingly weak, she has been unable to do her peritoneal dialysis, and reportedly she has not done her peritoneal dialysis in several days. Denies any chest pain, she does have shortness of breath, no nausea or vomiting, she's had diminished appetite, she reports a generalized body aching. She was va ccinated with the Materna vaccine 2, has not received a booster. Reports a mild headache, no neck stiffness. 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 She is not requiring 2 L of oxygen and her pulse ox is 96%, afebrile, hemodynamically she's been stable, appears to be in no acute distress, but appears to be weak, peritoneal dialysis was done per nursing staff here in the hospital and the fluid was sent for analysis, and cultures. Nursing staff reports the peritoneal fluid being very bright yellow, but clear. In addition patient was experiencing urinary re tention, Parker catheter has been inserted with return of 1 L in urine output. Chest x-ray on admission showed patchy bilateral airspace disease, no evident pneumothorax or pleural effusion. Initial lab work showed a white blood cell count of 5.8, hemoglobin of 13.8, platelet count of 148, INR was 0.9, fibrinogen level was 666, d-dimer was 3.6, sodium is 134, potassium is 3.3, chloride is 103, CO2 is 10, anion gap was 21, BUN is 92, creatinine is 11.19, plasma lactic acid was 1.5, AST was 37, ALT was 20, alkaline phosphatase was 50, LDH was 1502, CRP was 16, troponin was 0.026, proBNP was 634. Pro-calcitonin level was elevated slightly at 0.54 however patient is end-stage renal dialysis patient. Blood culture was drawn showing Staphylococcus epidermidis, and another blood culture from the same date on 10/15/2021 showed gram-positive bacilli and gram- positive cocci in clusters. Zosyn has been added. Review of Systems All systems: negative Constitutional: Denies chills, Denies fever Eyes: denies blurred vision, denies pain Ears, nose, mouth and throat: Denies headache, Denies sore throat Cardiovascular: Denies chest pain, Denies shortness of breath Respiratory: Reports dyspnea, Denies cough Gastrointestinal: Reports loss of appetite, Denies abdominal pain, Denies diarrhea, Denies nausea, Denies vomiting Genitourinary: Reports difficulty voiding, Reports dysuria, Reports pelvic pain, Denies hematuria Musculoskeletal: Denies myalgias Integumentary: Denies pruritus, Denies rash Neurological: Denies numbness, Denies weakness Psychiatric: Denies anxiety, Denies depression Endocrine: Denies fatigue, Denies weight change Past Medical History Past Medical History: Coronary Artery Disease (CAD), Diabetes Mellitus, Deep Vein Thrombosis (DVT), Hyperlipidemia, Hypertension, Myocardial Infarction ([place]), Pneumonia, Renal Disease Additional Past Medical History / Comment(s): varicose veins, diet control diabetic, renal failure, Last Myocardial Infarction Date:: 03/15/19 History of Any Multi-Drug Resistant Organisms: None Reported Past Surgical History: Section, Heart Catheterization With Stent Additional Past Surgical History / Comment(s): one cardiac stent, vein surgery aristides legs Past Anesthesia/Blood Transfusion Reactions: No Reported Reaction Date of Last Stent Placement:: 03/15/19 Past Psychological History: No Psychological Hx Reported Smoking Status: Former smoker Past Alcohol Use History: None Reported Additional Past Alcohol Use History / Comment(s): smoking 1/2-1 PPD, has smoked for 40 yrs Past Drug Use History: Marijuana - Past Family History Mother Family Medical History: Cancer, Dialysis Additional Family Medical History / Comment(s): Colon Cancer Medications and Allergies Home Medications Medication Instructions Recorded Confirmed Type Metoprolol Tartrate [Lopressor] 12.5 mg PO BID 11/09/19 10/15/21 History Torsemide [Demadex] 20 mg PO DAILY 11/09/19 10/15/21 History calcitrioL [Rocaltrol] 0.5 mcg PO MOWEFR 11/09/19 10/15/21 History Albuterol Inhaler [Ventolin Hfa 1 puff INHALATION RT-QID #8 gm 10/12/21 10/15/21 Rx Inhaler] Aspirin EC [Ecotrin Low Dose] 81 mg PO DAILY 10/15/21 10/15/21 History Atorvastatin [Lipitor] 80 mg PO DAILY 10/15/21 10/15/21 History Calcium Acetate [Phoslo] 1,334 mg PO TID 10/15/21 10/15/21 History Calcium Acetate [Phoslo] 667 mg PO DAILY PRN 10/15/21 10/15/21 History Nitroglycerin Sl Tabs [Nitrostat] 0.4 mg SL Q5M PRN 10/15/21 10/15/21 History Ondansetron [Zofran] 4 mg PO Q6H PRN 10/15/21 10/15/21 History traZODone HCL 50 - 100 mg PO HS PRN 10/15/21 10/15/21 History Allergies Allergy/AdvReac Type Severity Reaction Status Date / Time No Known Allergies Allergy Verified 10/15/21 14:17 Physical Exam Vitals: Vital Signs Temp Pulse Pulse Resp BP BP Pulse Ox 10/16/21 12:40 98 F 58 L 16 114/69 10/16/21 08:00 17 10/16/21 05:18 97.7 F 56 L 18 118/63 96 10/16/21 05:12 97.5 F L 55 L 14 118/63 95 10/16/21 02:00 95.5 F L 58 L 19 119/70 97 10/15/21 21:20 97.4 F L 59 L 14 115/69 96 Intake and Output 10/16/21 10/16/21 10/16/21 06:59 14:59 22:59 Intake Total 300 Output Total 1000 Balance -700 Intake: Oral 300 Output: Urine 1000 Uretheral (Parker) 1000 GENERAL EXAM: Alert, very pleasant, 61-year-old white female, on 2 L of oxygen with a pulse ox of 96%, appears weak, she is laying in bed, moaning, but she was able to get up and answer questions about her history of present illness comfortable in no apparent distress. HEAD: Normocephalic/atraumatic. EYES: Normal reaction of pupils, equal size. Conjunctiva pink, sclera white. NOSE: Clear with pink turbinates. THROAT: No erythema or exudates. NECK: No masses, no JVD, no thyroid enlargement, no adenopathy. CHEST: No chest wall deformity. Symmetrical expansion. LUNGS: Equal air entry with bibasilar crackles CVS: Regular rate and rhythm, normal S1 and S2, no gallops, no murmurs, no rubs ABDOMEN: Soft, nontender. No hepatosplenomegaly, normal bowel sounds, no guarding or rigidity. EXTREMITIES: No clubbing, no edema, no cyanosis, 2+ pulses and upper and lower extremities. MUSCULOSKELETAL: Muscle strength and tone normal. SPINE: No scoliosis or deformity SKIN: No rashes CENTRAL NERVOUS SYSTEM: Alert and oriented -3. No focal deficits, tone is normal in all 4 extremities. PSYCHIATRIC: Alert and oriented -3. Appropriate affect. Intact judgment and insight. Results - Laboratory Findings CBC and BMP: 10/16/21 06:33 10/16/21 06:33 PT/INR, D-dimer PT 9.7 sec (9.0-12.0) 10/15/21 12:07 INR 0.9 (<1.2) 10/15/21 12:07 D-Dimer 3.66 mg/L FEU (<0.60) H 10/15/21 12:07 Abnormal lab findings: Abnormal Labs 10/15/21 10/15/21 10/15/21 12:07 12:07 12:07 WBC RDW Plt Count 148 L Plt Count Comment Lymphocytes # 0.7 L Monocytes # Eosinophils # Fibrinogen 666 H D-Dimer 3.66 H Sodium 134 L Potassium 3.3 L Carbon Dioxide 10 L Anion Gap BUN 92 H Creatinine 11.19 H* Est GFR (CKD-EPI)AfAm Est GFR (CKD-EPI)NonAf BUN/Creatinine Ratio Glucose 153 H Calcium 7.9 L Total Bilirubin AST 37 H Lactate Dehydrogenase C-Reactive Protein Total Protein 6.2 L Albumin 3.1 L Albumin/Globulin Ratio Procalcitonin 10/15/21 10/15/21 10/16/21 12:07 12:07 06:33 WBC 2.71 L RDW 14.8 H Plt Count Plt Count Comment DECREASED A Lymphocytes # 0.47 L Monocytes # 0.16 L Eosinophils # 0 L Fibrinogen D-Dimer Sodium Potassium Carbon Dioxide Anion Gap BUN Creatinine Est GFR (CKD-EPI)AfAm Est GFR (CKD-EPI)NonAf BUN/Creatinine Ratio Glucose Calcium Total Bilirubin AST Lactate Dehydrogenase 1502 H C-Reactive Protein 16.0 H Total Protein Albumin Albumin/Globulin Ratio Procalcitonin 0.54 H 10/16/21 06:33 WBC RDW Plt Count Plt Count Comment Lymphocytes # Monocytes # Eosinophils # Fibrinogen D-Dimer Sodium 133 L Potassium Carbon Dioxide 12.7 L Anion Gap 23.30 H BUN 92.9 H Creatinine 10.2 H* Est GFR (CKD-EPI)AfAm 4.2 L Est GFR (CKD-EPI)NonAf 3.6 L BUN/Creatinine Ratio 9.11 L Glucose 239 H Calcium 8.6 L Total Bilirubin 0.20 L AST Lactate Dehydrogenase C-Reactive Protein 11.80 H Total Protein Albumin 3.4 L Albumin/Globulin Ratio 1.13 L Procalcitonin - Diagnostic Findings Chest x-ray: report reviewed, image reviewed Assessment and Plan Plan: Assessment: #1. Acute hypoxic respiratory failure related to acute COVID-19 pneumonia, patient is a vaccinated adult status post completed Moderna vaccination 2, no booster. Presented to the emergency department on 10/15/2021 with one week history of symptoms of COVID, worsening shortness of breath, cough, body aches, headache, weakness. Patient is status post monoclonal antibody infusion on 10/11/2021. Patient is not a candidate for Remdesivir related to end-stage renal disease #2. Rule out possibility of underlying bacterial infection, patient had mildly elevated pro calcitonin level, empirically placed on Zosyn. In the setting of end-stage renal disease patients pro calcitonin level may not be significantly elevated #3. 2 positive blood cultures, on the same day, with Staphylococcus epidermidis, and gram-positive bacillus and gram-positive cocci, also likely related to skin contamination. #4. Dehydration and metabolic acidosis,, related to poor oral intake currently on IV fluids in the form of D5W with 3 A of sodium bicarbonate at 50 ML per hour #5. End-stage renal disease on peritoneal dialysis, patient has missed one week's worth of peritoneal dialysis. Peritoneal fluid was sent for cultures #6. Hypertension #7. Diabetes mellitus type 2 #8. History of coronary artery disease with previous stenting #9. Previous history of DVT, not on any chronic anticoagulation #10. Previous history of MN #11. Former smoker Plan: Continue Decadron 6 mg daily Patient is not a candidate for Remdesivir related to her GFR of less than 30 Continue supportive treatment, Continue prophylactic Lovenox at 30 mg D-dimer was noted, we will order lower extremity Dopplers Continue multivitamins We will add Zosyn empirically Blood cultures have been noted, and most likely contaminated with skin petr We'll continue to follow her clinical course and make further recommendations I performed a history & physical examination of the patient and discussed their management with my nurse practitioner, Lexy Callahan. I reviewed the nurse practitioner's note and agree with the documented findings and plan of care. Lung sounds are positive for dim breath sounds throughout the lung hua. The findings and the impression was discussed with the patient. I attest to the documentation by the nurse practitioner. Time with Patient: Greater than 30
[2021-10-16] MEDS: LACTULOSE 20 GM/30 ML CUP PO SCH (21:36)
[2021-10-16] MEDS: ACETAMINOPHEN TAB 500 MG TAB PO PRN (21:37)
[2021-10-16] MEDS ORDERED: [UNRECOGNIZED DRUG - OTHER] INTRAPERIT ONE (22:00)
[2021-10-16] MEDS ORDERED: HEPARIN SODIUM INTRAPERIT ONE (22:00)
[2021-10-17] MEDS ORDERED: PIPERACILLIN-TAZOBACTAM 3.375 GM in SODIUM CHLORIDE 0.9% 100 ML IVPB SCH ×2
[2021-10-17] MEDS: DIALYSIS (PERIT 1.5%) 2,000 ML 30 G/2,000 ML BAG INTRAPERIT SCH ×4 (01:09→18:01)
[2021-10-17 02:20] LABS: Appearance,BF Clear
[2021-10-17] MEDS: SODIUM BICARBONATE TAB 650 MG TAB PO SCH ×3 (08:10→22:43)
[2021-10-17] MEDS: DEXAMETHASONE SOD PHOSPHATE 10 MG/ML 1 ML VIAL IV SCH (08:10)
[2021-10-17] MEDS: ATORVASTATIN 80 MG TAB PO SCH (08:10)
[2021-10-17] MEDS: TORSEMIDE 20 MG TAB PO SCH (08:11)
[2021-10-17] MEDS: CALCIUM ACETATE 667 MG TAB PO SCH ×3 (08:11→18:01)
[2021-10-17] MEDS: ENOXAPARIN 30 MG/0.3 ML SYRINGE SQ SCH (08:13)
[2021-10-17] MEDS: ASPIRIN 81 MG PO SCH (08:13)
[2021-10-17] MEDS: METOPROLOL TARTRATE 12.5 MG TAB PO SCH ×2 (08:13→22:43)
[2021-10-17] MEDS: LACTULOSE 20 GM/30 ML CUP PO SCH ×3 (08:30→22:43)
[2021-10-17] MEDS: ALBUTEROL HFA INHALER INHALATION SCH ×4 (09:25→20:24)
[2021-10-17 09:31] LABS: Basophils # (A) 0.01 X 10*3/uL (0.00-0.10); Basophils % (A) 0.2 %; Eosinophils # (A) 0 X 10*3/uL (0.04-0.35); Eosinophils % (A) 0 %; HCT 39.8 % (37.2-46.3); HGB 13.1 g/dL (12.0-15.0); Lymphocytes # (A) 0.47 X 10*3/uL (0.90-5.00); Lymphocytes % (A) 7.4 %; MCH 28.4 pg (27.0-32.0); MCHC 32.9 g/dL (32.0-37.0); MCV 86.3 fL (80.0-97.0); Mean Platelet Volume 10.7 fL (9.5-12.2); Monocytes # (A) 0.42 X 10*3/uL (0.20-1.00); Monocytes % (A) 6.6 %; Neutrophils # (A) 5.37 X 10*3/uL (1.80-7.70); Platelet Count 203 X 10*3/uL (140-440); RBC 4.61 X 10*6/uL (4.10-5.20); RDW 14.8 % (11.5-14.5); WBC 6.32 X 10*3/uL (4.50-10.00)
--- NOTE | 2021-10-17 10:40 | P.PN ---
Subjective Patient is seen in follow-up for end-stage renal disease. She is maintained on peritoneal dialysis. There was difficulty with drainage yesterday but now resolved. She was given lactulose yesterday. Dialysate has been clear. Patient feels weak. Receiving IV fluids. Vital signs are stable. HEENT: Head exam is unremarkable. LUNGS: Breath sounds decreased. HEART: Rate and Rhythm are regular. ABDOMEN: Soft, no distention. EXTREMITITES: No edema. Objective - Vital Signs Vital signs: Vital Signs Temp 97.2 F L 10/17/21 07:51 Pulse 50 L 10/17/21 07:51 Resp 16 10/17/21 02:12 BP 117/68 10/17/21 07:51 Pulse Ox 95 10/17/21 02:12 Intake & Output 10/16/21 10/17/21 10/17/21 18:59 06:59 18:59 Intake Total 300 Output Total 1000 Balance -700 Intake: Oral 300 Output: Urine 1000 Uretheral (Parker) 1000 Other: Voiding Method Indwelling Catheter - Labs CBC & Chem 7: 10/17/21 06:12 10/16/21 06:33 Labs: Abnormal Lab Results - Last 24 Hours (Table) 10/16/21 10/16/21 10/17/21 Range/Units 06:33 06:33 06:12 RDW 14.8 H (11.5-14.5) % Plt Count Comment DECREASED A Immature Gran # 0.05 H (0.00-0.04) X 10*3/uL Lymphocytes # 0.47 L 0.47 L (0.90-5.00) X 10*3/uL Monocytes # 0.16 L (0.20-1.00) X 10*3/uL Eosinophils # 0 L 0 L (0.04-0.35) X 10*3/uL Fibrinogen (200-500) mg/dL D-Dimer (<0.60) mg/L FEU Phosphorus 9.4 H* (2.4-5.1) mg/dL 10/17/21 Range/Units 06:12 RDW (11.5-14.5) % Plt Count Comment Immature Gran # (0.00-0.04) X 10*3/uL Lymphocytes # (0.90-5.00) X 10*3/uL Monocytes # (0.20-1.00) X 10*3/uL Eosinophils # (0.04-0.35) X 10*3/uL Fibrinogen 569 H (200-500) mg/dL D-Dimer 0.95 H (<0.60) mg/L FEU Phosphorus (2.4-5.1) mg/dL Microbiology - Last 24 Hours (Table) 10/17/21 03:00 Body Fluid Culture - Preliminary Dialysate 10/16/21 13:00 Gram Stain - Preliminary Dialysate Body Fluid Culture - Preliminary 10/15/21 12:15 Blood Culture Gram Stain - Preliminary Blood 10/15/21 11:55 Blood Culture Gram Stain - Preliminary Blood Blood Culture - Preliminary Staphylococcus epidermidis 10/15/21 12:15 Blood Culture - Final Blood 10/15/21 11:55 Blood Culture - Final Blood Assessment and Plan Plan: Assessment: 1. End-stage renal disease maintained on peritoneal dialysis. No evidence of peritonitis. 2. Acute hypoxic respiratory failure. 3. COVID-19 pneumonia. 4. Metabolic acidosis secondary to chronic kidney disease. On bicarb drip. 5. 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 6. Gram-positive bacteremia. On IV antibiotics. 7. Hypokalemia from poor intake and PD losses. Replaced. Plan:. Maintain current PD exchanges - 2 L every 6 hours and 1.5% dextrose solution. Follow-up cultures. Follow-up morning labs.
[2021-10-17] MEDS ORDERED: VANCOMYCIN IV PER PHARMACY 1 EACH MISC MISCELLANE PRN (11:27)
--- NOTE | 2021-10-17 11:31 | P.CONS ---
History of Present Illness - Reason for Consult Consult date: 10/16/21 bacteremia Requesting physician: Lino Rodriguez - Chief Complaint weakness x few days - History of Present Illness History of Present Illness : Patient is a 61-year female with a past medical history significant for end-stage renal disease on peritoneal dialysis patient was brought into the ER yesterday afternoon for evaluation of increasing shortness of breath cough generalized weakness and this patient was recently diagnosed with a covid19 on October 12, 2021 and received monoclonal antibodies and was subsequently discharged home however the patient not been brought back to the hospital with increasing weakness lethargy and apparently the patient has not been hyperadrenalism for the last few days patient on arrival to the ER was afebrile subsequently she was noticed to be hypothermic this morning patient remains to be lethargic patient was mildly hypoxic and is currently on 2 L nasal cannula patient did have a normal white count with lymphopenia did have elevated BUN and creatinine CRP was elevated patient did have peritoneal fluid sent which was clear with 9 WBC D-dimer was mildly elevated patient did have a chest x-ray patchy bilateral airspace disease is noted no evidence of pneumothorax or pleural effusion patient was admitted to hospital patient did have a blood culture drawn which came back positive with gram-positive cocci that has prompted this infectious disease consultation , Patient is currently lethargic sleepy and is unable provide any history no vomiting or diarrhea was reported by nursing staff, patient also have a Parker catheter placed and overall her urine looks clean Review of system: Positive points mentioned in history of present illness complete review could not be obtained because of his underlying medical condition Past medical history : Reviewed, documented below Past surgical history : Reviewed, documented below Social history: Reviewed, documented below Medications: Reviewed, as documented below EXAMINATION: Vital sigans= Reviewed and documented below GENERAL DESCRIPTION: Middle-aged male lying in bed, no distress. No tachypnea or accessory muscle of respiration use. HEENT: Shows Pallor , no scleral icterus. Oral mucous membrane is dry. NECK: Trachea central, no thyromegaly. LUNGS: Unlabored breathing. Decreased breath sound at the base. No wheeze or crackle. HEART: S1, S2, regular rate and rhythm. ABDOMEN: Soft, no tenderness , guarding or rigidity EXTREMITIES: No edema feet SKIN: No rash, no masses palpable. NEUROLOGICAL: The patient is sleepy lethargic orientation could not determine LABS AND RADIOLOGY: Reviewed results see below Assessment : 1-Patient is a 61-year female with recent diagnosis of COVID-19 infection on October 12, 2021 patient has received monoclonal antibodies not been brought to the hospital with increasing shortness of breath weakness lethargy which could be more likely metabolic as the patient has not been doing her peritoneal dialysis clinic suspicious low for secondary bacterial pneumonia 2-patient with positive blood culture with gram-positive cocci with a question of possible skin contaminant versus related to possible peritonitis Plan: 1-vancomycin pharmacy to dose target trough of 15 while watching kidney function and vancomycin trough closely 2-blood cultures will be repeated document clearance of bacteremia 3-patient to continue with dexamethasone Lovenox zinc ascorbic acid for underlying COVID-19 infection We will follow on clinical condition and cultures to further adjust medication if needed Thank you for this consultation we will follow the patient along with you Past Medical History Past Medical History: Coronary Artery Disease (CAD), Diabetes Mellitus, Deep Vein Thrombosis (DVT), Hyperlipidemia, Hypertension, Myocardial Infarction ([place]), Pneumonia, Renal Disease Additional Past Medical History / Comment(s): varicose veins, diet control d iabetic, renal failure, Last Myocardial Infarction Date:: 03/15/19 History of Any Multi-Drug Resistant Organisms: None Reported Past Surgical History: Section, Heart Catheterization With Stent Additional Past Surgical History / Comment(s): one cardiac stent, vein surgery aristides legs Past Anesthesia/Blood Transfusion Reactions: No Reported Reaction Date of Last Stent Placement:: 03/15/19 Past Psychological History: No Psychological Hx Reported Smoking Status: Former smoker Past Alcohol Use History: None Reported Additional Past Alcohol Use History / Comment(s): smoking 1/2-1 PPD, has smoked for 40 yrs Past Drug Use History: Marijuana - Past Family History Mother Family Medical History: Cancer, Dialysis Additional Family Medical History / Comment(s): Colon Cancer Medications and Allergies Home Medications Medication Instructions Recorded Confirmed Type Metoprolol Tartrate [Lopressor] 12.5 mg PO BID 11/09/19 10/15/21 History Torsemide [Demadex] 20 mg PO DAILY 11/09/19 10/15/21 History calcitrioL [Rocaltrol] 0.5 mcg PO MOWEFR 11/09/19 10/15/21 History Albuterol Inhaler [Ventolin Hfa 1 puff INHALATION RT-QID #8 gm 10/12/21 10/15/21 Rx Inhaler] Aspirin EC [Ecotrin Low Dose] 81 mg PO DAILY 10/15/21 10/15/21 History Atorvastatin [Lipitor] 80 mg PO DAILY 10/15/21 10/15/21 History Calcium Acetate [Phoslo] 1,334 mg PO TID 10/15/21 10/15/21 History Calcium Acetate [Phoslo] 667 mg PO DAILY PRN 10/15/21 10/15/21 History Nitroglycerin Sl Tabs [Nitrostat] 0.4 mg SL Q5M PRN 10/15/21 10/15/21 History Ondansetron [Zofran] 4 mg PO Q6H PRN 10/15/21 10/15/21 History traZODone HCL 50 - 100 mg PO HS PRN 10/15/21 10/15/21 History Allergies Allergy/AdvReac Type Severity Reaction Status Date / Time No Known Allergies Allergy Verified 10/15/21 14:17 Physical Exam Vitals: Vital Signs Temp Pulse Pulse Resp BP BP Pulse Ox 10/16/21 12:40 98 F 58 L 16 114/69 10/16/21 08:00 17 10/16/21 05:18 97.7 F 56 L 18 118/63 96 10/16/21 05:12 97.5 F L 55 L 14 118/63 95 10/16/21 02:00 95.5 F L 58 L 19 119/70 97 10/15/21 21:20 97.4 F L 59 L 14 115/69 96 Intake and Output 10/16/21 10/16/21 10/16/21 06:59 14:59 22:59 Intake Total 300 Output Total 1000 Balance -700 Intake: Oral 300 Output: Urine 1000 Uretheral (Parker) 1000 Results CBC & Chem 7: 10/17/21 06:12 10/16/21 06:33 Labs: Abnormal Lab Results - Last 24 Hours (Table) 10/15/21 10/16/21 10/16/21 Range/Units 12:07 06:33 06:33 WBC 2.71 L (4.50-10.00) X 10*3/uL RDW 14.8 H (11.5-14.5) % Plt Count Comment DECREASED A Lymphocytes # 0.47 L (0.90-5.00) X 10*3/uL Monocytes # 0.16 L (0.20-1.00) X 10*3/uL Eosinophils # 0 L (0.04-0.35) X 10*3/uL Sodium 133 L (135-145) mmol/L Carbon Dioxide 12.7 L (20.0-27.5) mmol/L Anion Gap 23.30 H (10.00-18.00) mmol/L BUN 92.9 H (9.0-27.0) mg/dL Creatinine 10.2 H* (0.6-1.5) mg/dL Est GFR (CKD-EPI)AfAm 4.2 L (60.0-200.0) Est GFR (CKD-EPI)NonAf 3.6 L (60.0-200.0) BUN/Creatinine Ratio 9.11 L (12.00-20.00) Ratio Glucose 239 H (70-110) mg/dL Calcium 8.6 L (8.7-10.3) mg/dL Total Bilirubin 0.20 L (0.30-1.20) mg/dL C-Reactive Protein 11.80 H (0.00-0.80) mg/dL Albumin 3.4 L (3.8-4.9) g/dL Albumin/Globulin Ratio 1.13 L (1.60-3.17) g/dL Procalcitonin 0.54 H (0.02-0.09) ng/mL Microbiology - Last 24 Hours (Table) 10/15/21 11:55 Blood Culture Gram Stain - Preliminary Blood Blood Culture - Preliminary Staphylococcus epidermidis 10/15/21 12:15 Blood Culture Gram Stain - Preliminary Blood 10/15/21 12:15 Blood Culture - Final Blood 10/15/21 11:55 Blood Culture - Final Blood
[2021-10-17 11:38] LABS: C Reactive Protein 6.6 mg/dL (0.00-0.80); Magnesium 2.2 mg/dL (1.5-2.4)
[2021-10-17 11:42] LABS: Albumin 3.2 g/dL (3.8-4.9); Albumin/Globulin Ratio 1.14 (1.60-3.17); Anion Gap 22.9 mmol/L (10.00-18.00); BUN/Creat Ratio 9.63 Ratio (12.00-20.00); Blood Urea Nitrogen 85.7 mg/dL (9.0-27.0); Carbon Dioxide 16.1 mmol/L (20.0-27.5); Globulin 2.8 g/dL (1.6-3.3); Non-African American GFR(CKD) 4.3 (60.0-200.0); Potassium 4.2 mmol/L (3.5-5.5); Total Bilirubin 0.3 mg/dL (0.30-1.20)
[2021-10-17] MEDS ORDERED: VANCOMYCIN 1,250 MG in SODIUM CHLORIDE 0.9% 250 ML IVPB ONE (12:00)
[2021-10-17 17:11] LABS: Appearance,Urine Clear (Clear); Bilirubin,Urine Negative (Negative); Blood,Urine Small (Negative); Color,Urine Colorless; Glucose,Urine (UA) 3+ (Negative); Ketones,Urine Negative (Negative); Leukocyte Esterase,Urine Negative (Negative); Nitrite,Urine Negative (Negative); PH, Urine 6.5 (5.0-8.0); Protein,Urine 1+ (Negative); RBC,Urine 2 /hpf (0-5); Specific Gravity,Urine 1.006 (1.001-1.035); Urobilinogen,Urine <2.0 mg/dL (<2.0); WBC,Urine 1 /hpf (0-5)
[2021-10-17] MEDS: DEXTROSE 5% IN WATER 1,000 ML with SODIUM BICARB (1 MEQ/ML) 150 ML IV SCH ×2 (18:00→22:45)
--- NOTE | 2021-10-17 18:05 | P.PN ---
Subjective Progress Note Date: 10/17/21 Principal diagnosis: Acute hypoxic respiratory failure secondary to COVID-19 pneumonia This is a 61-year-old white female patient with past medical history of hypertension, hyperlipidemia, previous ME, diabetes mellitus type 2, coronary artery disease, former smoker, end-stage renal disease on peritoneal dialysis who came into the emergency department yesterday on 10/15/2021 for evaluation of worsening shortness of breath, cough, generalized weakness. Patient was diagnosed with COVID-19, she was here on 10/11/2021 and received a monoclonal antibody. Patient reports onset of symptoms a week ago. Patient has been increasingly weak, she has been unable to do her peritoneal dialysis, and reportedly she has not done her peritoneal dialysis in several days. Denies any chest pain, she does have shortness of breath, no nausea or vomiting, she's had diminished appetite, she reports a generalized body aching. She was vaccinated with the Materna vaccine 2, has not received a booster. Reports a mild headache, no neck stiffness. 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 She is not requiring 2 L of oxygen and her pulse ox is 96%, afebrile, hemodynamically she's been stable, appears to be in no acute distress, but appears to be weak, peritoneal dialysis was done per nursing staff here in the hospital and the fluid was sent for analysis, and cultures. Nursing staff reports the peritoneal fluid being very bright yellow, but clear. In addition patient was experiencing urinary retention, Parker catheter has been inserted with return of 1 L in urine output. Chest x-ray on admission showed patchy bilateral airspace disease, no evident pneumothorax or pleural effusion. Initial lab work showed a white blood cell count of 5.8, hemoglobin of 13.8, platelet count of 148, INR was 0.9, fibrinogen level was 666, d-dimer was 3.6, sodium is 134, potassium is 3.3, chloride is 103, CO2 is 10, anion gap was 21, BUN is 92, creatinine is 11.19, plasma lactic acid was 1.5, AST was 37, ALT was 20, alkaline phosphatase was 50, LDH was 1502, CRP was 16, troponin was 0.026, proBNP was 634. Pro-calcitonin level was elevated slightly at 0.54 however patient is end-stage renal dialysis patient. Blood culture was drawn showing Staphylococcus epidermidis, and another blood culture from the same date on 10/15/2021 showed gram-positive bacilli and gram- positive cocci in clusters. Zosyn has been added. Reevaluated today on 10/17/2021, ration seems to be doing much per her today, breathing easier, she is on 2 L nasal cannula, and her O2 saturation is 96%. Patient presented with COVID-19 infection, her diagnosis was initially made on October 12, she received monoclonal antibodies, patient was admitted with weakness, increased shortness of breath, and the patient is normally on peritoneal dialysis, there was a concern that the patient may have secondary bacterial infection, blood cultures showed gram-positive cocci, however there was also questionable skin contamination. The final blood culture showed coagulase-negative staph, and mostly staph epidermidis, we are suspecting that this is most likely a skin contamination. Patient is being followed by infectious disease on the case. Gram stain on the peritoneal fluid is pending and cultures on the peritoneal fluid is also pending. In the meantime the patient remains on antibiotics as per infectious disease WBC count is 6.3 to hemoglobin is 13.1 her d-dimer is 0.95, came down from 3.66 on admission. Renal functioning remains poor with a BUN of 85 creatinine 8.9, remind you patient is on peritoneal dialysis for chronic kidney disease. Objective - Vital Signs Vital signs: Vital Signs Temp 96.0 F L 10/17/21 14:00 Pulse 56 L 10/17/21 14:00 Resp 17 10/17/21 14:00 BP 108/57 10/17/21 14:00 Pulse Ox 96 10/17/21 14:00 Intake & Output 10/16/21 10/17/21 10/17/21 18:59 06:59 18:59 Intake Total 300 Output Total 1000 Balance -700 Intake: Oral 300 Output: Urine 1000 Uretheral (Parker) 1000 Other: Voiding Method Indwelling Catheter Indwelling Catheter # Voids 900 - Exam GENERAL DESCRIPTION: 59-year-old female in no distress. On 2 L nasal cannula. HEENT: [place], EOMI, anicteric, no neck masses no JVD. NECK: No neck masses no JVD no stridor. LUNGS: Decreased breath sounds and crackles at the bases. HEART: Distant S1-S2 no S3 gallop. ABDOMEN: Soft nontender no megaly no rebound no guarding. EXTREMITIES: No clubbing edema or cyanosis. SKIN: No rash, NEUROLOGICAL: Sleepy, lethargic, could not fully assess mental status. - Labs CBC & Chem 7: 10/17/21 06:12 10/17/21 06:12 Labs: Abnormal Lab Results - Last 24 Hours (Table) 10/17/21 10/17/21 10/17/21 Range/Units 06:12 06:12 06:12 RDW 14.8 H (11.5-14.5) % Immature Gran # 0.05 H (0.00-0.04) X 10*3/uL Lymphocytes # 0.47 L (0.90-5.00) X 10*3/uL Eosinophils # 0 L (0.04-0.35) X 10*3/uL Fibrinogen 569 H (200-500) mg/dL D-Dimer 0.95 H (<0.60) mg/L FEU Carbon Dioxide 16.1 L (20.0-27.5) mmol/L Anion Gap 22.90 H (10.00-18.00) mmol/L BUN 85.7 H (9.0-27.0) mg/dL Creatinine 8.9 H* (0.6-1.5) mg/dL Est GFR (CKD-EPI)AfAm 5.0 L (60.0-200.0) Est GFR (CKD-EPI)NonAf 4.3 L (60.0-200.0) BUN/Creatinine Ratio 9.63 L (12.00-20.00) Ratio Glucose 309 H (70-110) mg/dL Lactate Dehydrogenase 540 H (120-246) U/L C-Reactive Protein 6.60 H (0.00-0.80) mg/dL Total Protein 6.0 L (6.2-8.2) g/dL Albumin 3.2 L (3.8-4.9) g/dL Albumin/Globulin Ratio 1.14 L (1.60-3.17) g/dL Urine Protein (Negative) Urine Glucose (UA) (Negative) Urine Blood (Negative) 10/17/21 Range/Units Unknown RDW (11.5-14.5) % Immature Gran # (0.00-0.04) X 10*3/uL Lymphocytes # (0.90-5.00) X 10*3/uL Eosinophils # (0.04-0.35) X 10*3/uL Fibrinogen (200-500) mg/dL D-Dimer (<0.60) mg/L FEU Carbon Dioxide (20.0-27.5) mmol/L Anion Gap (10.00-18.00) mmol/L BUN (9.0-27.0) mg/dL Creatinine (0.6-1.5) mg/dL Est GFR (CKD-EPI)AfAm (60.0-200.0) Est GFR (CKD-EPI)NonAf (60.0-200.0) BUN/Creatinine Ratio (12.00-20.00) Ratio Glucose (70-110) mg/dL Lactate Dehydrogenase (120-246) U/L C-Reactive Protein (0.00-0.80) mg/dL Total Protein (6.2-8.2) g/dL Albumin (3.8-4.9) g/dL Albumin/Globulin Ratio (1.60-3.17) g/dL Urine Protein 1+ H (Negative) Urine Glucose (UA) 3+ H (Negative) Urine Blood Small H (Negative) Microbiology - Last 24 Hours (Table) 10/15/21 12:15 Blood Culture Gram Stain - Final Blood Blood Culture - Final Coagulase Negative Staph Bacillus species Not Anthracis 10/15/21 11:55 Blood Culture Gram Stain - Final Blood Blood Culture - Final Staphylococcus epidermidis 10/17/21 03:00 Body Fluid Culture - Preliminary Dialysate 10/16/21 13:00 Gram Stain - Preliminary Dialysate Body Fluid Culture - Preliminary Assessment and Plan Assessment: Impression: Acute hypoxic respiratory failure secondary to COVID-19 pneumonia, patient is vaccinated, received 2 shots of Moderna vaccine, no posterior. Patient is status post monoclonal antibody infusion on 10/11/2021, not a candidate for Remdesivir because of her end-stage renal disease. Possible bacterial infection, patient remains empirically on antibiotics as per infectious disease, she had positive blood cultures but most likely they are contamination related. End-stage renal disease on peritoneal dialysis Benign essential hypertension Type 2 diabetes History of coronary arteriosclerosis and previous stent placement Previous history of DVT. Previous ME. Ex-smoker. Recommendation: Continue Decadron Continue Lovenox Continue antibiotics as per ID on the case, ration may not need to be on vancomycin. Awaiting final culture from the peritoneal fluid in the meantime patient is on Zosyn. Continue supportive care measures. Not a candidate for Remdesivir and definitely not a candidate for Baricitinib. We will continue to follow. Time with Patient: Less than 30
[2021-10-18] MEDS: DIALYSIS (PERIT 1.5%) 2,000 ML 30 G/2,000 ML BAG INTRAPERIT SCH ×4 (00:18→18:11)
[2021-10-18] MEDS: ONDANSETRON 4 MG TAB PO PRN (04:09)
[2021-10-18] MEDS: ALBUTEROL HFA INHALER INHALATION SCH ×4 (07:41→21:06)
[2021-10-18] MEDS: ENOXAPARIN 30 MG/0.3 ML SYRINGE SQ SCH (08:46)
[2021-10-18] MEDS: METOPROLOL TARTRATE 12.5 MG TAB PO SCH (08:47)
[2021-10-18] MEDS: CALCIUM ACETATE 667 MG TAB PO SCH ×3 (08:47→17:10)
[2021-10-18] MEDS: TORSEMIDE 20 MG TAB PO SCH (08:48)
[2021-10-18] MEDS: ASPIRIN 81 MG PO SCH (08:48)
[2021-10-18] MEDS: LACTULOSE 20 GM/30 ML CUP PO SCH ×4 (08:48→22:16)
[2021-10-18] MEDS: ATORVASTATIN 80 MG TAB PO SCH (08:48)
[2021-10-18] MEDS: SODIUM BICARBONATE TAB 650 MG TAB PO SCH ×3 (08:48→22:09)
[2021-10-18] MEDS ORDERED: VANCOMYCIN 1,250 MG in SODIUM CHLORIDE 0.9% 250 ML IVPB ONE (09:00)
[2021-10-18] MEDS: DEXAMETHASONE SOD PHOSPHATE 10 MG/ML 1 ML VIAL IV SCH (09:12)
[2021-10-18 10:29] LABS: Basophils # (A) 0.01 X 10*3/uL (0.00-0.10); Basophils % (A) 0.1 %; Eosinophils # (A) 0 X 10*3/uL (0.04-0.35); Eosinophils % (A) 0 %; HCT 37.6 % (37.2-46.3); HGB 12.6 g/dL (12.0-15.0); Lymphocytes # (A) 0.39 X 10*3/uL (0.90-5.00); MCH 29.6 pg (27.0-32.0); MCHC 33.5 g/dL (32.0-37.0); MCV 88.5 fL (80.0-97.0); Mean Platelet Volume 10.9 fL (9.5-12.2); Monocytes % (A) 7.2 %; Neutrophils # (A) 8.51 X 10*3/uL (1.80-7.70); Neutrophils % (A) 87.6 %; Platelet Count 196 X 10*3/uL (140-440); RBC 4.25 X 10*6/uL (4.10-5.20); RDW 14.6 % (11.5-14.5); WBC 9.72 X 10*3/uL (4.50-10.00)
--- NOTE | 2021-10-18 10:46 | P.PN ---
Subjective Patient is seen in follow-up for end-stage renal disease. She is maintained on peritoneal dialysis. No problems with PD changes. Having loose bowel movements. Oral intake better. More awake and alert today. Vital signs are stable. HEENT: Head exam is unremarkable. LUNGS: Breath sounds decreased. HEART: Rate and Rhythm are regular. ABDOMEN: Soft, no distention. EXTREMITITES: No edema. Objective - Vital Signs Vital signs: Vital Signs Temp 97.6 F 10/18/21 10:15 Pulse 51 L 10/18/21 10:15 Resp 16 10/18/21 10:15 BP 110/56 10/18/21 10:15 Pulse Ox 94 L 10/18/21 10:15 Intake & Output 10/17/21 10/18/21 10/18/21 18:59 06:59 18:59 Output Total 1150 Balance -1150 Output: Urine 1150 Other: Voiding Method Indwelling Catheter Indwelling Catheter # Voids 900 - Labs CBC & Chem 7: 10/18/21 07:33 10/17/21 06:12 Labs: Abnormal Lab Results - Last 24 Hours (Table) 10/17/21 10/17/21 10/18/21 Range/Units 06:12 Unknown 07:33 RDW 14.6 H (11.5-14.5) % Immature Gran # 0.11 H (0.00-0.04) X 10*3/uL Neutrophils # 8.51 H (1.80-7.70) X 10*3/uL Lymphocytes # 0.39 L (0.90-5.00) X 10*3/uL Eosinophils # 0 L (0.04-0.35) X 10*3/uL Carbon Dioxide 16.1 L (20.0-27.5) mmol/L Anion Gap 22.90 H (10.00-18.00) mmol/L BUN 85.7 H (9.0-27.0) mg/dL Creatinine 8.9 H* (0.6-1.5) mg/dL Est GFR (CKD-EPI)AfAm 5.0 L (60.0-200.0) Est GFR (CKD-EPI)NonAf 4.3 L (60.0-200.0) BUN/Creatinine Ratio 9.63 L (12.00-20.00) Ratio Glucose 309 H (70-110) mg/dL Lactate Dehydrogenase 540 H (120-246) U/L C-Reactive Protein 6.60 H (0.00-0.80) mg/dL Total Protein 6.0 L (6.2-8.2) g/dL Albumin 3.2 L (3.8-4.9) g/dL Albumin/Globulin Ratio 1.14 L (1.60-3.17) g/dL Urine Protein 1+ H (Negative) Urine Glucose (UA) 3+ H (Negative) Urine Blood Small H (Negative) Microbiology - Last 24 Hours (Table) 10/17/21 03:00 Gram Stain - Preliminary Dialysate Body Fluid Culture - Preliminary 10/16/21 13:00 Gram Stain - Preliminary Dialysate Body Fluid Culture - Preliminary 10/15/21 12:15 Blood Culture Gram Stain - Final Blood Blood Culture - Final Coagulase Negative Staph Bacillus species Not Anthracis 10/15/21 11:55 Blood Culture Gram Stain - Final Blood Blood Culture - Final Staphylococcus epidermidis Assessment and Plan Plan: Assessment: 1. End-stage renal disease maintained on peritoneal dialysis. No evidence of peritonitis. 2. Acute hypoxic respiratory failure. 3. COVID-19 pneumonia. 4. Metabolic acidosis secondary to chronic kidney disease. On bicarb drip. 5. 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 6. Bacillus bacteremia. On IV antibiotics. Infectious disease following. 7. Hypokalemia from poor intake and PD losses. Replaced. Better. Plan:. Maintain current PD exchanges - 2 L every 6 hours and 1.5% dextrose solution. Follow-up cultures. Follow-up morning labs. Monitor vancomycin levels. Dose to be adjusted for renal function.
--- NOTE | 2021-10-18 12:19 | CDI ---
Documentation Clarification Form Date: 10/18/2021 11:52:48 AM From: Ade Thakur RN CCDS Admit Date: 10/15/2021 03:17:00 PM Patient Name: Ro Adams Visit Number: [id number] Discharge Date: ATTENTION: The Clinical Documentation Specialists (CDI) and [facility] Coding Staff appreciate your assistance in clarifying documentation. Please respond to the clarification below the line at the bottom and electronically sign. The CDI & [facility] Coding staff will review the response and follow-up if needed. Please note: Queries are made part of the Legal Health Record. If you have any questions, please contact the author of this message via ITS. Dr. Derick Durand Conflicting documentation has been found in the medical record. As attending physician, please provide clarification. Stage 5 CKD, H&P and Progress, Medicine, 10/16. ESRD, Nephrology Consult and progress notes, 10/16, 10/17 & 10/18. History/Risk Factors: 61-year-old female presents to the ED with shortness of breath, malaise and generalized weakness. Clinical Indicators: Nephrology Consult: 10/16 ESRD maintained on peritoneal dialysis. VSS: 10/15 B/P 92/49, HR 65, Temp 98.9 F Oral, RR 24, SpO2 97% 2L LABS: 10/15 CR 11.9 BUN 92 GFR 3 Treatment: Peritoneal Dialysis, 10/15 to current Peritoneal Dialysis Solution Deflex with 1.5% Dextrose (2,000ML) Intraperitoneal Q6HR; 10/15 to current Phoslo 667mg PO Daily PRN with snacks; 10/16 current Phoslo 1,334mg PO AC TID RESHMA; 10/16 to current Dextrose / Water with Sodium Bicarbonate 150ml IV Q23HR; 10/16 to current Sodium Bicarbonate 650mg PO TID; 10/16 to current Demadex 20mg PO Daily RESHMA. Nephrology consult see above. Please clarify which diagnosis is most appropriate: [ ] ESRD [ ] Stage 5 CKD [ ] Other (please specify) [ ] Unable to determine (Template Last Revised: November 2020) MTDD
--- NOTE | 2021-10-18 12:35 | P.PN ---
Subjective Progress Note Date: 10/18/21 Principal diagnosis: Acute hypoxic respiratory failure related to COVID 19 pneumonia, dehydration This is a 61-year-old white female patient with past medical history of hypertension, hyperlipidemia, previous RI, diabetes mellitus type 2, coronary artery disease, former smoker, end-stage renal disease on peritoneal dialysis who came into the emergency department yesterday on 10/15/2021 for evaluation of worsening shortness of breath, cough, generalized weakness. Patient was diagnosed with COVID-19, she was here on 10/11/2021 and received a monoclonal antibody. Patient reports onset of symptoms a week ago. Patient has been increasingly weak, she has been unable to do her peritoneal dialysis, and reportedly she has not done her peritoneal dialysis in several days. Denies any chest pain, she does have shortness of breath, no nausea or vomiting, she's had diminished appetite, she reports a generalized body aching. She was vaccinated with the Materna vaccine 2, has not received a booster. Reports a mild headache, no neck stiffness. 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 She is not requiring 2 L of oxygen and her pulse ox is 96%, afebrile, hemodynamically she's been stable, appears to be in no acute distress, but appears to be weak, peritoneal dialysis was done per nursing staff here in the hospital and the fluid was sent for analysis, and cultures. Nursing staff reports the peritoneal fluid being very bright yellow, but clear. In addition patient was experiencing urinary retention, Parker catheter has been inserted with return of 1 L in urine output. Chest x-ray on admission showed patchy bilateral airspace disease, no evident pneumothorax or pleural effusion. Initial lab work showed a white blood cell count of 5.8, hemoglobin of 13.8, platelet count of 148, INR was 0.9, fibrinogen level was 666, d-dimer was 3.6, sodium is 134, potassium is 3.3, chloride is 103, CO2 is 10, anion gap was 21, BUN is 92, creatinine is 11.19, plasma lactic acid was 1.5, AST was 37, ALT was 20, alkaline phosphatase was 50, LDH was 1502, CRP was 16, troponin was 0.026, proBNP was 634. Pro-calcitonin level was wes vated slightly at 0.54 however patient is end-stage renal dialysis patient. Blood culture was drawn showing Staphylococcus epidermidis, and another blood culture from the same date on 10/15/2021 showed gram-positive bacilli and gram- positive cocci in clusters. Zosyn has been added. Reevaluated today on 10/17/2021, ration seems to be doing much per her today, breathing easier, she is on 2 L nasal cannula, and her O2 saturation is 96%. Patient presented with COVID-19 infection, her diagnosis was initially made on October 12, she received monoclonal antibodies, patient was admitted with weakn ess, increased shortness of breath, and the patient is normally on peritoneal dialysis, there was a concern that the patient may have secondary bacterial infection, blood cultures showed gram-positive cocci, however there was also questionable skin contamination. The final blood culture showed coagulase- negative staph, and mostly staph epidermidis, we are suspecting that this is most likely a skin contamination. Patient is being followed by infectious disease on the case. Gram stain on the peritoneal fluid is pending and cultures on the peritoneal fluid is also pending. In the meantime the patient remains on antibiotics as per infectious disease WBC count is 6.3 to hemoglobin is 13.1 her d-dimer is 0.95, came down from 3.66 on admission. Renal functioning remains poor with a BUN of 85 creatinine 8.9, remind you patient is on peritoneal dialysis for chronic kidney disease. On 10/18/2021 patient seen in follow-up on medical surgical floor, she denies any trouble breathing, she is currently on room air, her pulse ox is 94%, vital signs stable, she's been afebrile, however she continues to have nausea, poor appetite. She does have a congested cough, at times she is bringing up some yellowish colored phlegm, but the chest discomfort, no hemoptysis, she remains generally weak, however clinically she looks better than 48 hours ago. she was able to get up in a chair, she is more awake and alert, she is answering questions. His been receiving peritoneal dialysis twice daily, she remains on bicarbonate infusion at 50 ML per hour, she is also receiving oral bicarb replacements, patient continues on Decadron 6 mg daily, she is on vancomycin, ID service is following. Peritoneal fluid has shown no growth, blood cultures showed coagulase-negative staph, Bacillus species not), and staph epidermidis, likely skin contaminant. Vital signs have been stable, abdomen is soft, no ntender. Today's labs have been reviewed, white blood cell count was 9.72, hemoglobin is 12.6, today's electrolytes and renal profile are still pending, her inflammatory markers or improving on yesterday's labs, and LDH was down to 540, and CRP was down to 6.6. Objective - Vital Signs Vital signs: Vital Signs Temp 97.6 F 10/18/21 10:15 Pulse 51 L 10/18/21 10:15 Resp 16 10/18/21 10:15 BP 110/56 10/18/21 10:15 Pulse Ox 94 L 10/18/21 10:15 Intake & Output 10/17/21 10/18/21 10/18/21 18:59 06:59 18:59 Output Total 1150 Balance -1150 Output: Urine 1150 Other: Voiding Method Indwelling Catheter Indwelling Catheter # Voids 900 # Bowel Movements 1 - Exam GENERAL EXAM: Alert, very pleasant, 61-year-old white female, sitting up in the recliner, breathing comfortably, patient has a emesis basin in front of her, she states she is nauseous, but has not thrown up this morning, omfortable in no apparent distress. HEAD: Normocephalic/atraumatic. EYES: Normal reaction of pupils, equal size. Conjunctiva pink, sclera white. NOSE: Clear with pink turbinates. THROAT: No erythema or exudates. NECK: No masses, no JVD, no thyroid enlargement, no adenopathy. CHEST: No chest wall deformity. Symmetrical expansion. LUNGS: Equal air entry with scattered crackles CVS: Regular rate and rhythm, normal S1 and S2, no gallops, no murmurs, no rubs ABDOMEN: Soft, nontender. No hepatosplenomegaly, normal bowel sounds, no guarding or rigidity. Peritoneal dialysis catheter is taped the abdominal wall EXTREMITIES: No clubbing, no edema, no cyanosis, 2+ pulses and upper and lower extremities. MUSCULOSKELETAL: Muscle strength and tone normal. SPINE: No scoliosis or deformity SKIN: No rashes CENTRAL NERVOUS SYSTEM: Alert and oriented -3. No focal deficits, tone is normal in all 4 extremities. PSYCHIATRIC: Alert and oriented -3. Appropriate affect. Intact judgment and insight. - Labs CBC & Chem 7: 10/18/21 07:33 10/17/21 06:12 Labs: Abnormal Lab Results - Last 24 Hours (Table) 10/17/21 10/18/21 Range/Units Unknown 07:33 RDW 14.6 H (11.5-14.5) % Immature Gran # 0.11 H (0.00-0.04) X 10*3/uL Neutrophils # 8.51 H (1.80-7.70) X 10*3/uL Lymphocytes # 0.39 L (0.90-5.00) X 10*3/uL Eosinophils # 0 L (0.04-0.35) X 10*3/uL Urine Protein 1+ H (Negative) Urine Glucose (UA) 3+ H (Negative) Urine Blood Small H (Negative) Microbiology - Last 24 Hours (Table) 10/17/21 03:00 Gram Stain - Preliminary Dialysate Body Fluid Culture - Preliminary 10/16/21 13:00 Gram Stain - Preliminary Dialysate Body Fluid Culture - Preliminary 10/15/21 12:15 Blood Culture Gram Stain - Final Blood Blood Culture - Final Coagulase Negative Staph Bacillus species Not Anthracis 10/15/21 11:55 Blood Culture Gram Stain - Final Blood Blood Culture - Final Staphylococcus epidermidis Assessment and Plan Plan: Assessment: #1. Acute hypoxic respiratory failure related to acute COVID-19 pneumonia, patient is a vaccinated adult status post completed Moderna vaccination 2, no booster. Presented to the emergency department on 10/15/2021 with one week history of symptoms of COVID, worsening shortness of breath, cough, body aches, headache, weakness. Patient is status post monoclonal antibody infusion on 10/11/2021. Patient is not a candidate for Remdesivir related to end-stage renal disease #2. Rule out possibility of underlying bacterial infection, patient had mildly elevated pro calcitonin level, initially empirically placed on Zosyn, currently on vancomycin. In the setting of end-stage renal disease patients pro calcitonin level may not be significantly elevated #3. 2 positive blood cultures, on the same day, with Staphylococcus epidermidis, and gram-positive bacillus and gram-positive cocci, also likely related to skin contamination. #4. Dehydration and metabolic acidosis,, related to poor oral intake currently on IV fluids in the form of D5W with 3 A of sodium bicarbonate at 50 ML per hour #5. End-stage renal disease on peritoneal dialysis, patient has missed one week's worth of peritoneal dialysis. Peritoneal fluid was sent for cultures and showed no growth thus far #6. Hypertension #7. Diabetes mellitus type 2 #8. History of coronary artery disease with previous stenting #9. Previous history of DVT, not on any chronic anticoagulation #10. Previous history of RI #11. Former smoker Plan: Patient denies any worsening dyspnea, does have mildly congested cough, She is not requiring any oxygen Continue Decadron 6 mg daily Continue prophylactic Lovenox D-dimer was noted, improving, lower extremity Dopplers are pending Inflammatory markers are improving abt per ID service recommendations Currently patient is just on vancomycin Vital Signs have been stable, PD fluid showed no growth thus far We'll send a sputum culture Continue to follow clinical course I performed a history & physical examination of the patient and discussed their management with my nurse practitioner, Lexy Callahan. I reviewed the nurse practitioner's note and agree with the documented findings and plan of care. Lung sounds are positive for dim breath sounds throughout the lung hua. The findings and the impression was discussed with the patient. I attest to the documentation by the nurse practitioner. Time with Patient: Less than 30
[2021-10-18 13:10] LABS: C Reactive Protein 3.8 mg/dL (0.00-0.80)
[2021-10-18 13:12] LABS: Albumin 3.1 g/dL (3.8-4.9); Albumin/Globulin Ratio 1.2 (1.60-3.17); Anion Gap 21.1 mmol/L (10.00-18.00); BUN/Creat Ratio 9.34 Ratio (12.00-20.00); Blood Urea Nitrogen 71.7 mg/dL (9.0-27.0); Calcium 8.9 mg/dL (8.7-10.3); Carbon Dioxide 23.5 mmol/L (20.0-27.5); Globulin 2.6 g/dL (1.6-3.3); Non-African American GFR(CKD) 5.1 (60.0-200.0); Potassium 3.4 mmol/L (3.5-5.5); Total Bilirubin 0.2 mg/dL (0.30-1.20); Total Protein 5.6 g/dL (6.2-8.2)
--- NOTE | 2021-10-18 13:23 | US ---
EXAMINATION TYPE: US venous doppler duplex LE DATE OF EXAM: 10/18/2021 1:08 PM COMPARISON: NONE CLINICAL HISTORY: elevated d-dimer. COVID19 SIDE PERFORMED: Bilateral TECHNIQUE: The lower extremity deep venous system is examined utilizing real time linear array sonog shakeel with graded compression, doppler sonography and color-flow sonography. VESSELS IMAGED: Common Femoral Vein Deep Femoral Vein Greater Saphenous Vein * Femoral Vein Popliteal Vein Small Saphenous Vein * Proximal Calf Veins (* superficial vessels) There is normal flow, compressibility, vascular waveforms. Right Leg: Negative for DVT Left Leg: Negative for DVT IMPRESSION: No evident deep venous thrombosis within the lower extremities from the level the knees c entrally
[2021-10-18] MEDS ORDERED: POTASSIUM CHLORIDE ER 20 MEQ TAB.ER PO STA (14:34)
--- NOTE | 2021-10-18 14:44 | P.PN ---
Subjective Progress Note Date: 10/17/21 Principal diagnosis: Bacteremia Patient is a 61-year female past medical history significant for end- stage renal disease on peritoneal dialysis admitted to hospital with mental status changes and did have a positive COVID test blood culture subsequently came back positive for gram-positive cocci. On today's evaluation there is 10/17/2021 the patient remains to be sleepy lethargic and unable for any history however she is breathing comfortably on room air no vomiting diarrhea reported by nursing staff Objective - Vital Signs Vital signs: Vital Signs Temp 97.2 F L 10/17/21 07:51 Pulse 50 L 10/17/21 07:51 Resp 16 10/17/21 02:12 BP 117/68 10/17/21 07:51 Pulse Ox 95 10/17/21 02:12 Intake & Output 10/16/21 10/17/21 10/17/21 18:59 06:59 18:59 Intake Total 300 Output Total 1000 Balance -700 Intake: Oral 300 Output: Urine 1000 Uretheral (Parker) 1000 Other: Voiding Method Indwelling Catheter - Exam GENERAL DESCRIPTION: Middle-aged female lying in bed, no distress. No tachypnea or accessory muscle of respiration use. LUNGS: Unlabored breathing. Decrease intensity of breath sounds. No wheeze or crackle. HEART: S1, S2, regular rate and rhythm. No loud murmur ABDOMEN: Soft, no tenderness , guarding or rigidity, no organomegaly EXTREMITIES: No edema of feet. - Labs CBC & Chem 7: 10/18/21 07:33 10/18/21 07:33 Labs: Abnormal Lab Results - Last 24 Hours (Table) 10/16/21 10/16/21 10/17/21 Range/Units 06:33 06:33 06:12 RDW 14.8 H (11.5-14.5) % Plt Count Comment DECREASED A Immature Gran # 0.05 H (0.00-0.04) X 10*3/uL Lymphocytes # 0.47 L 0.47 L (0.90-5.00) X 10*3/uL Monocytes # 0.16 L (0.20-1.00) X 10*3/uL Eosinophils # 0 L 0 L (0.04-0.35) X 10*3/uL Fibrinogen (200-500) mg/dL D-Dimer (<0.60) mg/L FEU Phosphorus 9.4 H* (2.4-5.1) mg/dL 10/17/21 Range/Units 06:12 RDW (11.5-14.5) % Plt Count Comment Immature Gran # (0.00-0.04) X 10*3/uL Lymphocytes # (0.90-5.00) X 10*3/uL Monocytes # (0.20-1.00) X 10*3/uL Eosinophils # (0.04-0.35) X 10*3/uL Fibrinogen 569 H (200-500) mg/dL D-Dimer 0.95 H (<0.60) mg/L FEU Phosphorus (2.4-5.1) mg/dL Microbiology - Last 24 Hours (Table) 10/17/21 03:00 Body Fluid Culture - Preliminary Dialysate 10/16/21 13:00 Gram Stain - Preliminary Dialysate Body Fluid Culture - Preliminary 10/15/21 12:15 Blood Culture Gram Stain - Preliminary Blood 10/15/21 11:55 Blood Culture Gram Stain - Preliminary Blood Blood Culture - Preliminary Staphylococcus epidermidis 10/15/21 12:15 Blood Culture - Final Blood 10/15/21 11:55 Blood Culture - Final Blood Assessment and Plan Assessment: 1-Patient with a covid19 pneumonia in this patient respiratory status seem to have some improve meant, patient treatment is supportive in the form of dexamethasone hold Lovenox zinc and ascorbic acid. 2patient with positive blood culture with gram-positive cocci possible skin contaminant if finalized as staph epi vancomycin will be discontinued Time with Patient: Less than 30
[2021-10-19] MEDS: DIALYSIS (PERIT 1.5%) 2,000 ML 30 G/2,000 ML BAG INTRAPERIT SCH ×5 (00:12→23:42)
[2021-10-19] MEDS: CALCIUM ACETATE 667 MG TAB PO SCH ×3 (08:50→17:37)
[2021-10-19] MEDS: DEXAMETHASONE SOD PHOSPHATE 10 MG/ML 1 ML VIAL IV SCH (08:50)
[2021-10-19] MEDS: ENOXAPARIN 30 MG/0.3 ML SYRINGE SQ SCH (08:50)
[2021-10-19] MEDS: LACTULOSE 20 GM/30 ML CUP PO SCH (08:51)
[2021-10-19] MEDS: SODIUM BICARBONATE TAB 650 MG TAB PO SCH (08:51)
[2021-10-19] MEDS: METOPROLOL TARTRATE 12.5 MG TAB PO SCH ×2 (08:51→20:31)
[2021-10-19] MEDS: TORSEMIDE 20 MG TAB PO SCH (08:51)
[2021-10-19] MEDS: ATORVASTATIN 80 MG TAB PO SCH (08:51)
[2021-10-19] MEDS: ASPIRIN 81 MG PO SCH (08:51)
[2021-10-19] MEDS: ALBUTEROL HFA INHALER INHALATION SCH ×4 (09:33→20:03)
--- NOTE | 2021-10-19 09:49 | P.PN ---
Subjective Patient is seen in follow-up for end-stage renal disease. She is maintained on peritoneal dialysis. No problems with PD changes. Oral intake better. Mentation gradually improving. Denies chest pain or shortness of breath. Feels weak. Vital signs are stable. HEENT: Head exam is unremarkable. LUNGS: Breath sounds decreased. HEART: Rate and Rhythm are regular. ABDOMEN: Soft, no distention. EXTREMITITES: No edema. Objective - Vital Signs Vital signs: Vital Signs Temp 97.6 F 10/19/21 09:20 Pulse 61 10/19/21 09:20 Resp 18 10/19/21 09:20 BP 157/56 10/19/21 09:20 Pulse Ox 90 L 10/19/21 09:20 Intake & Output 10/18/21 10/19/21 10/19/21 18:59 06:59 18:59 Output Total 1600 Balance -1600 Output: Urine 1600 Other: Voiding Method Indwelling Catheter # Bowel Movements 3 1 - Labs CBC & Chem 7: 10/18/21 07:33 10/18/21 07:33 Labs: Abnormal Lab Results - Last 24 Hours (Table) 10/18/21 10/18/21 10/18/21 Range/Units 07:33 07:33 07:33 RDW 14.6 H (11.5-14.5) % Immature Gran # 0.11 H (0.00-0.04) X 10*3/uL Neutrophils # 8.51 H (1.80-7.70) X 10*3/uL Lymphocytes # 0.39 L (0.90-5.00) X 10*3/uL Eosinophils # 0 L (0.04-0.35) X 10*3/uL D-Dimer (<0.60) mg/L FEU Potassium 3.4 L (3.5-5.5) mmol/L Anion Gap 21.10 H (10.00-18.00) mmol/L BUN 71.7 H (9.0-27.0) mg/dL Creatinine 7.7 H* (0.6-1.5) mg/dL Est GFR (CKD-EPI)AfAm 6.0 L (60.0-200.0) Est GFR (CKD-EPI)NonAf 5.1 L (60.0-200.0) BUN/Creatinine Ratio 9.34 L (12.00-20.00) Ratio Glucose 326 H (70-110) mg/dL Total Bilirubin 0.20 L (0.30-1.20) mg/dL C-Reactive Protein 3.80 H (0.00-0.80) mg/dL Total Protein 5.6 L (6.2-8.2) g/dL Albumin 3.1 L (3.8-4.9) g/dL Albumin/Globulin Ratio 1.20 L (1.60-3.17) g/dL Procalcitonin 0.19 H (0.02-0.09) ng/mL 10/19/21 Range/Units 06:53 RDW (11.5-14.5) % Immature Gran # (0.00-0.04) X 10*3/uL Neutrophils # (1.80-7.70) X 10*3/uL Lymphocytes # (0.90-5.00) X 10*3/uL Eosinophils # (0.04-0.35) X 10*3/uL D-Dimer 1.10 H (<0.60) mg/L FEU Potassium (3.5-5.5) mmol/L Anion Gap (10.00-18.00) mmol/L BUN (9.0-27.0) mg/dL Creatinine (0.6-1.5) mg/dL Est GFR (CKD-EPI)AfAm (60.0-200.0) Est GFR (CKD-EPI)NonAf (60.0-200.0) BUN/Creatinine Ratio (12.00-20.00) Ratio Glucose (70-110) mg/dL Total Bilirubin (0.30-1.20) mg/dL C-Reactive Protein (0.00-0.80) mg/dL Total Protein (6.2-8.2) g/dL Albumin (3.8-4.9) g/dL Albumin/Globulin Ratio (1.60-3.17) g/dL Procalcitonin (0.02-0.09) ng/mL Microbiology - Last 24 Hours (Table) 10/18/21 07:33 Blood Culture - Preliminary Blood No Growth after 24 hours 10/16/21 13:00 Gram Stain - Preliminary Dialysate Body Fluid Culture - Preliminary 10/17/21 03:00 Gram Stain - Preliminary Dialysate Body Fluid Culture - Preliminary Assessment and Plan Plan: Assessment: 1. End-stage renal disease maintained on peritoneal dialysis. No evidence of peritonitis. 2. Acute hypoxic respiratory failure. 3. COVID-19 pneumonia. 4. Metabolic acidosis secondary to chronic kidney disease. s/p bicarb drip. Now on oral bicarbonate. 5. 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 6. Bacillus bacteremia. On IV antibiotics. Infectious disease following. 7. Hypokalemia from poor intake and PD losses. Replaced. Plan:. Maintain current PD exchanges - 2 L every 6 hours and 1.5% dextrose solution. Monitor vancomycin levels. Dose to be adjusted for renal function. Follow-up morning labs.
[2021-10-19 10:34] LABS: African American GFR (CKD) 7.4 (60.0-200.0); BUN/Creat Ratio 8.61 Ratio (12.00-20.00); Blood Urea Nitrogen 55.1 mg/dL (9.0-27.0); Calcium 8.9 mg/dL (8.7-10.3); Carbon Dioxide 29.8 mmol/L (20.0-27.5); Non-African American GFR(CKD) 6.4 (60.0-200.0); Potassium 3.3 mmol/L (3.5-5.5)
[2021-10-19 11:45] LABS: Magnesium 1.8 mg/dL (1.5-2.4)
[2021-10-19] MEDS ORDERED: LACTULOSE 20 GM/30 ML CUP PO PRN (12:13)
[2021-10-19] MEDS ORDERED: POTASSIUM CHLORIDE ER 20 MEQ TAB.ER PO STA (13:54)
--- NOTE | 2021-10-19 16:29 | P.PN ---
Subjective Progress Note Date: 10/18/21 Principal diagnosis: Bacteremia Patient is a 61-year female past medical history significant for end- stage renal disease on peritoneal dialysis admitted to hospital with mental status changes and did have a positive COVID test blood culture subsequently came back positive for gram-positive cocci. On today's evaluation there is 10/18/2021 the patient remains to be afebrile, the patient is slightly more awake and alert however not adequate historian she is breathing comfortably on room air no vomiting or diarrhea were reported by the nursing staff Objective - Vital Signs Vital signs: Vital Signs Temp 97.6 F 10/18/21 10:15 Pulse 51 L 10/18/21 10:15 Resp 16 10/18/21 10:15 BP 110/56 10/18/21 10:15 Pulse Ox 94 L 10/18/21 10:15 Intake & Output 10/17/21 10/18/21 10/18/21 18:59 06:59 18:59 Output Total 1150 Balance -1150 Output: Urine 1150 Other: Voiding Method Indwelling Catheter Indwelling Catheter # Voids 900 # Bowel Movements 1 - Exam GENERAL DESCRIPTION: Middle-aged female lying in bed, no distress. No tachypnea or accessory muscle of respiration use. LUNGS: Unlabored breathing. Decrease intensity of breath sounds. No wheeze or crackle. HEART: S1, S2, regular rate and rhythm. No loud murmur ABDOMEN: Soft, no tenderness , guarding or rigidity, no organomegaly EXTREMITIES: No edema of feet. - Labs CBC & Chem 7: 10/18/21 07:33 10/19/21 06:53 Labs: Abnormal Lab Results - Last 24 Hours (Table) 10/17/21 10/18/21 10/18/21 Range/Units Unknown 07:33 07:33 RDW 14.6 H (11.5-14.5) % Immature Gran # 0.11 H (0.00-0.04) X 10*3/uL Neutrophils # 8.51 H (1.80-7.70) X 10*3/uL Lymphocytes # 0.39 L (0.90-5.00) X 10*3/uL Eosinophils # 0 L (0.04-0.35) X 10*3/uL Potassium (3.5-5.5) mmol/L Anion Gap (10.00-18.00) mmol/L BUN (9.0-27.0) mg/dL Creatinine (0.6-1.5) mg/dL Est GFR (CKD-EPI)AfAm (60.0-200.0) Est GFR (CKD-EPI)NonAf (60.0-200.0) BUN/Creatinine Ratio (12.00-20.00) Ratio Glucose (70-110) mg/dL Total Bilirubin (0.30-1.20) mg/dL C-Reactive Protein (0.00-0.80) mg/dL Total Protein (6.2-8.2) g/dL Albumin (3.8-4.9) g/dL Albumin/Globulin Ratio (1.60-3.17) g/dL Procalcitonin 0.19 H (0.02-0.09) ng/mL Urine Protein 1+ H (Negative) Urine Glucose (UA) 3+ H (Negative) Urine Blood Small H (Negative) 10/18/21 Range/Units 07:33 RDW (11.5-14.5) % Immature Gran # (0.00-0.04) X 10*3/uL Neutrophils # (1.80-7.70) X 10*3/uL Lymphocytes # (0.90-5.00) X 10*3/uL Eosinophils # (0.04-0.35) X 10*3/uL Potassium 3.4 L (3.5-5.5) mmol/L Anion Gap 21.10 H (10.00-18.00) mmol/L BUN 71.7 H (9.0-27.0) mg/dL Creatinine 7.7 H* (0.6-1.5) mg/dL Est GFR (CKD-EPI)AfAm 6.0 L (60.0-200.0) Est GFR (CKD-EPI)NonAf 5.1 L (60.0-200.0) BUN/Creatinine Ratio 9.34 L (12.00-20.00) Ratio Glucose 326 H (70-110) mg/dL Total Bilirubin 0.20 L (0.30-1.20) mg/dL C-Reactive Protein 3.80 H (0.00-0.80) mg/dL Total Protein 5.6 L (6.2-8.2) g/dL Albumin 3.1 L (3.8-4.9) g/dL Albumin/Globulin Ratio 1.20 L (1.60-3.17) g/dL Procalcitonin (0.02-0.09) ng/mL Urine Protein (Negative) Urine Glucose (UA) (Negative) Urine Blood (Negative) Microbiology - Last 24 Hours (Table) 10/17/21 03:00 Gram Stain - Preliminary Dialysate Body Fluid Culture - Preliminary 10/16/21 13:00 Gram Stain - Preliminary Dialysate Body Fluid Culture - Preliminary 10/15/21 12:15 Blood Culture Gram Stain - Final Blood Blood Culture - Final Coagulase Negative Staph Bacillus species Not Anthracis 10/15/21 11:55 Blood Culture Gram Stain - Final Blood Blood Culture - Final Staphylococcus epidermidis Assessment and Plan (1) Positive blood culture Current Visit: Yes Status: Acute Code(s): R78.81 - BACTEREMIA SNOMED Code(s): 116580577 (2) COVID-19 virus infection Current Visit: No Status: Acute Code(s): U07.1 - COVID-19 SNOMED Code(s): 346379161 Plan: 1--Patient with a covid19 pneumonia in this patient respiratory status seem to have some improve meant, patient treatment is supportive in the form of dexamethasone hold Lovenox zinc and ascorbic acid. 2patient with positive blood culture with gram-positive cocci possible skin contaminant if finalized as staph epi vancomycin will be discontinued Time with Patient: Less than 30
--- NOTE | 2021-10-19 16:31 | P.PN ---
Subjective Progress Note Date: 10/19/21 Principal diagnosis: Bacteremia Patient is a 61-year female past medical history significant for end- stage renal disease on peritoneal dialysis admitted to hospital with mental status changes and did have a positive COVID test blood culture subsequently came back positive for gram-positive cocci. On today's evaluation there is 10/19/2021 the patient continues to be afebrile, the patient is slightly more awake and alert and is breathing comfortably on room air no vomiting or diarrhea were reported by the nursing staff, patient herself was not a good historian Objective - Vital Signs Vital signs: Vital Signs Temp 97.6 F 10/19/21 09:20 Pulse 61 10/19/21 09:20 Resp 18 10/19/21 09:20 BP 157/56 10/19/21 09:20 Pulse Ox 90 L 10/19/21 09:20 Intake & Output 10/18/21 10/19/21 10/19/21 18:59 06:59 18:59 Output Total 1600 Balance -1600 Output: Urine 1600 Other: Voiding Method Indwelling Catheter # Bowel Movements 3 1 1 - Exam GENERAL DESCRIPTION: Middle-aged female lying in bed, no distress. No tachypnea or accessory muscle of respiration use. LUNGS: Unlabored breathing. Decrease intensity of breath sounds. No wheeze or crackle. HEART: S1, S2, regular rate and rhythm. No loud murmur ABDOMEN: Soft, no tenderness , guarding or rigidity, no organomegaly EXTREMITIES: No edema of feet. - Labs CBC & Chem 7: 10/18/21 07:33 10/19/21 06:53 Labs: Abnormal Lab Results - Last 24 Hours (Table) 10/19/21 10/19/21 Range/Units 06:53 06:53 D-Dimer 1.10 H (<0.60) mg/L FEU Potassium 3.3 L (3.5-5.5) mmol/L Carbon Dioxide 29.8 H (20.0-27.5) mmol/L BUN 55.1 H (9.0-27.0) mg/dL Creatinine 6.4 H (0.6-1.5) mg/dL Est GFR (CKD-EPI)AfAm 7.4 L (60.0-200.0) Est GFR (CKD-EPI)NonAf 6.4 L (60.0-200.0) BUN/Creatinine Ratio 8.61 L (12.00-20.00) Ratio Glucose 266 H (70-110) mg/dL Microbiology - Last 24 Hours (Table) 10/17/21 03:00 Gram Stain - Preliminary Dialysate Body Fluid Culture - Preliminary 10/18/21 07:33 Blood Culture - Preliminary Blood No Growth after 24 hours 10/16/21 13:00 Gram Stain - Preliminary Dialysate Body Fluid Culture - Preliminary Assessment and Plan (1) Positive blood culture Current Visit: Yes Status: Acute Code(s): R78.81 - BACTEREMIA SNOMED Code(s): 944466650 (2) COVID-19 virus infection Current Visit: No Status: Acute Code(s): U07.1 - COVID-19 SNOMED Code(s): 550298005 Plan: 1--Patient with a covid19 pneumonia in this patient respiratory status seem to have shown clinical improvement, patient treatment is supportive in the form of dexamethasone, Lovenox zinc and ascorbic acid. 2patient with positive blood culture with gram-positive cocci possible skin contaminant if finalized as staph epi vancomycin was discontinued repeat blood culture be negative so far Time with Patient: Less than 30
[2021-10-19] MEDS: ONDANSETRON 4 MG TAB PO PRN (17:36)
[2021-10-19] MEDS: ACETAMINOPHEN TAB 500 MG TAB PO PRN (22:35)
[2021-10-20] MEDS: ONDANSETRON 4 MG TAB PO PRN ×2 (02:35→19:23)
[2021-10-20] MEDS: DIALYSIS (PERIT 1.5%) 2,000 ML 30 G/2,000 ML BAG INTRAPERIT SCH ×3 (05:14→17:55)
[2021-10-20] MEDS: TORSEMIDE 20 MG TAB PO SCH (09:02)
[2021-10-20] MEDS: METOPROLOL TARTRATE 12.5 MG TAB PO SCH ×2 (09:02→21:17)
[2021-10-20] MEDS: CALCIUM ACETATE 667 MG TAB PO SCH ×3 (09:02→17:03)
[2021-10-20] MEDS: ASPIRIN 81 MG PO SCH (09:02)
[2021-10-20] MEDS: ATORVASTATIN 80 MG TAB PO SCH (09:02)
[2021-10-20] MEDS: DEXAMETHASONE SOD PHOSPHATE 10 MG/ML 1 ML VIAL IV SCH (09:02)
[2021-10-20] MEDS: ENOXAPARIN 30 MG/0.3 ML SYRINGE SQ SCH (09:02)
[2021-10-20] MEDS: ALBUTEROL HFA INHALER INHALATION SCH ×4 (09:30→20:10)
--- NOTE | 2021-10-20 15:49 | P.PN ---
Subjective Progress Note Date: 10/20/21 Follow-up for ESRD on PD. Objective - Vital Signs Vital signs: Vital Signs Temp 97.5 F L 10/20/21 13:43 Pulse 81 10/20/21 13:43 Resp 17 10/20/21 13:43 BP 154/81 10/20/21 13:43 Pulse Ox 93 L 10/20/21 13:43 Intake & Output 10/19/21 10/20/21 10/20/21 18:59 06:59 18:59 Output Total 1400 Balance -1400 Output: Urine 1400 Other: Voiding Method Indwelling Catheter Indwelling Catheter # Bowel Movements 1 1 - Exam No acute distress S1-S2 heard Decreased breath sounds PD catheter in the belly Trace edema - Labs CBC & Chem 7: 10/18/21 07:33 10/19/21 06:53 Labs: Microbiology - Last 24 Hours (Table) 10/17/21 03:00 Gram Stain - Preliminary Dialysate Body Fluid Culture - Preliminary 10/18/21 07:33 Blood Culture - Preliminary Blood No Growth after 48 hours 10/16/21 13:00 Gram Stain - Preliminary Dialysate Body Fluid Culture - Preliminary Assessment and Plan Assessment: #1 Covid 19 pneumonia in isolation #2 ESRD on peritoneal dialysis #3 anemia with ESRD #4 metabolic bone disease with ESRD #5 hypertension with ESRD Plan: #1 Continue Pd 2 L every 6 hours 1.5% dialysate. #2 supportive care
--- NOTE | 2021-10-20 16:14 | XR ---
EXAMINATION TYPE: XR chest 1V portable DATE OF EXAM: 10/20/2021 COMPARISON: 10/15/2021 HISTORY: Cough TECHNIQUE: Single view FINDINGS: There are some coarse interstitial infiltrate in both lungs. Heart size is normal. There is no heart failure. There is no pleural effusion. IMPRESSION: Patchy interstitial pulmonary infiltrates which appear the same or slightly worse than la st exam. There is probably some pulmonary fibrosis.
[2021-10-20] MEDS: ACETAMINOPHEN TAB 500 MG TAB PO PRN (19:23)
[2021-10-20 21:25] LABS: Magnesium 1.8 mg/dL (1.5-2.4)
--- NOTE | 2021-10-20 22:46 | P.PN ---
Subjective Progress Note Date: 10/20/21 Principal diagnosis: Bacteremia Patient is a 61-year female past medical history significant for end- stage renal disease on peritoneal dialysis admitted to hospital with mental status changes and did have a positive COVID test blood culture subsequently came back positive for staph epidermidis On today's evaluation there is 10/20/2021 the patient remains to be afebrile, the patient is awake and alert however has been complaining of feeling confused, the patient is breathing comfortably on room air no vomiting or diarrhea were reported by the nursing staff, Objective - Vital Signs Vital signs: Vital Signs Temp 98.3 F 10/20/21 16:44 Pulse 73 10/20/21 16:44 Resp 17 10/20/21 16:44 BP 150/84 10/20/21 16:44 Pulse Ox 91 L 10/20/21 16:44 Intake & Output 10/20/21 10/20/21 10/21/21 06:59 18:59 06:59 Other: Voiding Method Indwelling Catheter Indwelling Catheter # Bowel Movements 1 - Exam GENERAL DESCRIPTION: Middle-aged female lying in bed, no distress. No tachypnea or accessory muscle of respiration use. LUNGS: Unlabored breathing. Decrease intensity of breath sounds. No wheeze or crackle. HEART: S1, S2, regular rate and rhythm. No loud murmur ABDOMEN: Soft, no tenderness , guarding or rigidity, no organomegaly EXTREMITIES: No edema of feet. - Labs CBC & Chem 7: 10/18/21 07:33 10/19/21 06:53 Labs: Abnormal Lab Results - Last 24 Hours (Table) 10/19/21 Range/Units 06:53 Lactate Dehydrogenase 413 H (120-246) U/L Microbiology - Last 24 Hours (Table) 10/16/21 13:00 Gram Stain - Final Dialysate Body Fluid Culture - Final 10/17/21 03:00 Gram Stain - Preliminary Dialysate Body Fluid Culture - Preliminary 10/18/21 07:33 Blood Culture - Preliminary Blood No Growth after 48 hours Assessment and Plan (1) Positive blood culture Current Visit: Yes Status: Acute Code(s): R78.81 - BACTEREMIA SNOMED Code(s): 412791826 (2) COVID-19 virus infection Current Visit: No Status: Acute Code(s): U07.1 - COVID-19 SNOMED Code(s): 950495287 Plan: 1--Patient with a covid19 pneumonia in this patient respiratory status seem to have shown clinical improvement as the patient is not requiring supplemental oxygen, patient treatment is supportive in the form of dexamethasone, Lovenox zinc and ascorbic acid. 2patient with positive blood culture with gram-positive cocci possible skin contaminant if finalized as staph epi , repeat blood culture be negative so far, will continue to monitor the patient closely off antibiotic therapy Time with Patient: Less than 30
[2021-10-21] MEDS: DIALYSIS (PERIT 1.5%) 2,000 ML 30 G/2,000 ML BAG INTRAPERIT SCH ×4 (00:08→17:41)
[2021-10-21] MEDS: ALBUTEROL HFA INHALER INHALATION SCH ×4 (07:52→19:21)
[2021-10-21] MEDS: ENOXAPARIN 30 MG/0.3 ML SYRINGE SQ SCH (07:55)
[2021-10-21] MEDS: TORSEMIDE 20 MG TAB PO SCH (07:56)
[2021-10-21] MEDS: CALCIUM ACETATE 667 MG TAB PO SCH ×3 (07:56→17:41)
[2021-10-21] MEDS: METOPROLOL TARTRATE 12.5 MG TAB PO SCH ×2 (07:56→21:26)
[2021-10-21] MEDS: ASPIRIN 81 MG PO SCH (07:56)
[2021-10-21] MEDS: ATORVASTATIN 80 MG TAB PO SCH (07:57)
[2021-10-21] MEDS: DEXAMETHASONE SOD PHOSPHATE 10 MG/ML 1 ML VIAL IV SCH (10:15)
--- NOTE | 2021-10-21 12:29 | MISC ---
MISCELLANOUS REPORT QUERY: Stage 5 chronic kidney disease. MMODL / IJN: [id number] /
[2021-10-21 12:45] LABS: Magnesium 1.6 mg/dL (1.6-2.3)
--- NOTE | 2021-10-21 14:13 | P.PN ---
Subjective Progress Note Date: 10/21/21 Follow-up for ESRD on PD. Objective - Vital Signs Vital signs: Vital Signs Temp 98.4 F 10/21/21 13:13 Pulse 79 10/21/21 13:13 Resp 17 10/21/21 13:13 BP 119/69 10/21/21 13:13 Pulse Ox 90 L 10/21/21 13:13 Intake & Output 10/20/21 10/21/21 10/21/21 18:59 06:59 18:59 Output Total 450 Balance -450 Output: Urine 450 Other: Voiding Method Indwelling Catheter Indwelling Catheter Indwelling Catheter - Exam No acute distress S1-S2 heard Decreased breath sounds PD catheter in the belly Trace edema - Labs CBC & Chem 7: 10/18/21 07:33 10/19/21 06:53 Labs: Abnormal Lab Results - Last 24 Hours (Table) 10/19/21 10/21/21 10/21/21 Range/Units 06:53 12:01 12:01 Fibrinogen 529 H (200-500) mg/dL D-Dimer 1.53 H (<0.60) mg/L FEU Lactate Dehydrogenase 413 H 810 H (120-246) U/L Microbiology - Last 24 Hours (Table) 10/18/21 07:33 Blood Culture - Preliminary Blood No Growth after 72 hours 10/17/21 03:00 Gram Stain - Final Dialysate Body Fluid Culture - Final 10/16/21 13:00 Gram Stain - Final Dialysate Body Fluid Culture - Final Assessment and Plan Assessment: #1 Covid 19 pneumonia in isolation #2 ESRD on peritoneal dialysis #3 anemia with ESRD #4 metabolic bone disease with ESRD #5 hypertension with ESRD #6 hypokalemia Plan: #1 Continue Pd 2 L every 6 hours 1.5% dialysate. #2 supportive care #3 replace KCl
--- NOTE | 2021-10-21 20:29 | P.PN ---
Subjective Progress Note Date: 10/21/21 Principal diagnosis: Bacteremia Patient is a 61-year female past medical history significant for end- stage renal disease on peritoneal dialysis admitted to hospital with mental status changes and did have a positive COVID test blood culture subsequently came back positive for staph epidermidis On today's evaluation there is 10/21/2021 the patient is afebrile, the patient is awake and alert, the patient is breathing comfortably on room air , the pt denies vomiting or diarrhea , overall feeling better Objective - Vital Signs Vital signs: Vital Signs Temp 97.9 F 10/21/21 18:00 Pulse 70 10/21/21 18:00 Resp 20 10/21/21 18:00 BP 120/64 10/21/21 18:00 Pulse Ox 94 L 10/21/21 18:00 Intake & Output 10/21/21 10/21/21 10/22/21 06:59 18:59 06:59 Output Total 450 Balance -450 Output: Urine 450 Other: Voiding Method Indwelling Catheter Indwelling Catheter Indwelling Catheter # Voids 2 # Bowel Movements 2 - Exam GENERAL DESCRIPTION: Middle-aged female lying in bed, no distress. No tachypnea or accessory muscle of respiration use. LUNGS: Unlabored breathing. Decrease intensity of breath sounds. No wheeze or crackle. HEART: S1, S2, regular rate and rhythm. No loud murmur ABDOMEN: Soft, no tenderness , guarding or rigidity, no organomegaly EXTREMITIES: No edema of feet. - Labs CBC & Chem 7: 10/18/21 07:33 10/19/21 06:53 Labs: Abnormal Lab Results - Last 24 Hours (Table) 10/19/21 10/21/21 10/21/21 Range/Units 06:53 12:01 12:01 Fibrinogen 529 H (200-500) mg/dL D-Dimer 1.53 H (<0.60) mg/L FEU Lactate Dehydrogenase 413 H 810 H (120-246) U/L Microbiology - Last 24 Hours (Table) 10/18/21 07:33 Blood Culture - Preliminary Blood No Growth after 72 hours 10/17/21 03:00 Gram Stain - Final Dialysate Body Fluid Culture - Final 10/16/21 13:00 Gram Stain - Final Dialysate Body Fluid Culture - Final Assessment and Plan (1) Positive blood culture Current Visit: Yes Status: Acute Code(s): R78.81 - BACTEREMIA SNOMED Code(s): 021233819 (2) COVID-19 virus infection Current Visit: No Status: Acute Code(s): U07.1 - COVID-19 SNOMED Code(s): 638139406 Plan: 1--Patient with a covid19 pneumonia in this patient respiratory status seem to have shown clinical improvement as the patient is not requiring supplemental oxygen, patient treatment is supportive of dexamethasone, Lovenox zinc and ascorbic acid. 2patient with positive blood culture with gram-positive cocci possible skin contaminant if finalized as staph epi , repeat blood culture be negative will continue to monitor the patient closely off antibiotic therapy and continue with supportive care Time with Patient: Less than 30
[2021-10-22] MEDS: DIALYSIS (PERIT 1.5%) 2,000 ML 30 G/2,000 ML BAG INTRAPERIT SCH ×4 (00:28→17:07)
[2021-10-22] MEDS: CALCIUM ACETATE 667 MG TAB PO SCH ×3 (08:11→17:52)
[2021-10-22] MEDS: ASPIRIN 81 MG PO SCH (08:11)
[2021-10-22] MEDS: METOPROLOL TARTRATE 12.5 MG TAB PO SCH ×2 (08:11→19:48)
[2021-10-22] MEDS: ENOXAPARIN 30 MG/0.3 ML SYRINGE SQ SCH (08:11)
[2021-10-22] MEDS: POTASSIUM CHLORIDE ER 20 MEQ TAB.ER PO SCH (08:11)
[2021-10-22] MEDS: DEXAMETHASONE SOD PHOSPHATE 10 MG/ML 1 ML VIAL IV SCH (08:12)
[2021-10-22] MEDS: ATORVASTATIN 80 MG TAB PO SCH (08:12)
[2021-10-22] MEDS: TORSEMIDE 20 MG TAB PO SCH (08:12)
--- NOTE | 2021-10-22 09:00 | PN ---
PROGRESS NOTE CHIEF COMPLAINT: Stage 5 CKD, COVID-19 and delirium. HISTORY OF PRESENT ILLNESS: This lady is still quite ill. She remains confused. She is being dialyzed. She has had no fever or significant cough or shortness of breath. PHYSICAL EXAMINATION: Breath sounds are diminished with occasional rales and rhonchi. Cardiac exam is normal. Abdomen is soft and nontender. She is somewhat lethargic and she is confused. IMPRESSION: 1. Stage 5 CKD, on peritoneal dialysis. 2. Encephalopathy. 3. COVID-19. PLAN: Continue with the dialysis and follow with regard to her COVID and delirium. MMODL / IJN: [id number] /
[2021-10-22] MEDS: ALBUTEROL HFA INHALER INHALATION SCH ×4 (09:06→19:20)
--- NOTE | 2021-10-22 09:54 | CDI ---
Documentation Clarification Form Date: 10/22/2021 09:29:41 AM From: Ade Thakur RN CCDS Admit Date: 10/15/2021 03:17:00 PM Patient Name: Ro Adams Visit Number: [id number] Discharge Date: ATTENTION: The Clinical Documentation Specialists (CDI) and [facility] Coding Staff appreciate your assistance in clarifying documentation. Please respond to the clarification below the line at the bottom and electronically sign. The CDI & [facility] Coding staff will review the response and follow-up if needed. Please note: Queries are made part of the Legal Health Record. If you have any questions, please contact the author of this message via ITS. Dr. Derick Durand Encephalopathy is documented 10/20, Medicine progress note. Additional clarification regarding the type of encephalopathy is requested. History/Risk Factors: 61-year-old female presents to the ED with shortness of breath, malaise, myalgias and generalized weakness. Medical History: COPD, DM and CKD Clinical Indicators: VSS: B/P 92/49, HR 65, Temp 98.9 F Oral, RR 24, SpO2 97% 2L nc Labs: 10/15 Wbc 5.8; Lymphocytes 0.7; Na 134; K 3.3; BUN 92; Cr 11.19; Calcium 7.9; CRP 16.0; Total protein 6.2; Albumin 3.1; Procalcitonin 0.54 Pulmonary Consult 10/16: Acute hypoxic respiratory failure related to acute COVID 19 pneumonia. Treatment: 10/15 Decadron 12mg IVP x 1; 10/16 10/25 Decadron 6mg IV Daily (10 doses ordered). Please clarify the type of encephalopathy, if known: [ ] Metabolic Encephalopathy [ ] Other, please specify [ ] Unable to determine (Template Last Revised: November 2020) MTDD
[2021-10-22 13:39] VITALS: BMI 27.4
--- NOTE | 2021-10-22 14:33 | P.PN ---
Subjective Principal diagnosis: Pt is seen for f/u for ESRD. Maintained on PD. No complaints. In isolation for COVID. O2 sats 94% on room air. Objective - Vital Signs Vital signs: Vital Signs Temp 98 F 10/22/21 11:54 Pulse 68 10/22/21 11:54 Resp 18 10/22/21 10:00 BP 119/68 10/22/21 11:54 Pulse Ox 94 L 10/22/21 10:00 Intake & Output 10/21/21 10/22/21 10/22/21 18:59 06:59 18:59 Output Total 800 500 Balance -800 -500 Weight 74.843 kg Output: Urine 800 500 Other: Voiding Method Indwelling Catheter Indwelling Catheter Indwelling Catheter # Voids 2 # Bowel Movements 2 - Exam Pt in isolation for COVID. No edema noted. - Labs CBC & Chem 7: 10/18/21 07:33 10/19/21 06:53 Labs: Microbiology - Last 24 Hours (Table) 10/18/21 07:33 Blood Culture - Preliminary Blood No Growth after 96 hours Assessment and Plan Assessment: #1 Covid 19 pneumonia in isolation #2 ESRD on peritoneal dialysis #3 anemia with ESRD #4 metabolic bone disease with ESRD #5 hypertension with ESRD #6 hypokalemia, s/p replacement. Plan: Continue current exchanges.
--- NOTE | 2021-10-22 19:02 | PN ---
PROGRESS NOTE DATE OF SERVICE: 10/19/2021 CHIEF COMPLAINT: COVID and chronic renal failure with dehydration and delirium. HISTORY OF PRESENT ILLNESS: This lady is about the same. She is a little bit more lucid. She remains confused. Hydration is improved. She is being dialyzed. PHYSICAL EXAM: Skin is dry. Head, ears, eyes, nose and mouth are normal. Chest is clear. The cardiac exam reveals sinus rhythm. The abdomen is soft, nontender. IMPRESSION: 1. Stage 5 chronic kidney disease. 2. Dehydration. 3. COVID. 4. Encephalopathy. PLAN: Continue supportive efforts. MMODL / IJN: [id number] /
[2021-10-22] MEDS: ONDANSETRON 4 MG TAB PO PRN (19:48)
--- NOTE | 2021-10-22 19:48 | PN ---
PROGRESS NOTE DATE OF SERVICE: 10/18/2021 CHIEF COMPLAINT: Stage 5 CKD with encephalopathy. HISTORY OF PRESENT ILLNESS: This lady remains lethargic and confused. She is currently being dialyzed by Nephrology. PHYSICAL EXAMINATION: She appears chronically ill. She is still lethargic, but arousable. She is confused. Chest is clear. Cardiac exam is normal. The abdomen is soft and nontender. IMPRESSION: 1. Stage 5 chronic kidney disease. 2. Mental status changes. PLAN: Continue with fluid replacement and dialysis. Continue to monitor her neurologic state. MMODL / IJN: [id number] /
--- NOTE | 2021-10-22 20:03 | PN ---
PROGRESS NOTE DATE OF SERVICE: 10/17/2021 CHIEF COMPLAINT: 1. End-stage renal disease, on dialysis. 2. Encephalopathy with confusion and delirium. 3. Dehydration. PHYSICAL EXAMINATION: Breath sounds are of good quality bilaterally. Her cardiac exam demonstrates sinus rhythm with slight tachycardia. The abdomen is soft and there are no masses. IMPRESSION: 1. Stage 5 chronic kidney disease. 2. Delirium. 3. Encephalopathy. 4. Dehydration. PLAN: Nephrology continues her dialysis on a daily basis. MMODL / IJN: [id number] /
--- NOTE | 2021-10-22 22:59 | P.PN ---
Subjective Progress Note Date: 10/22/21 Principal diagnosis: Bacteremia Patient is a 61-year female past medical history significant for end- stage renal disease on peritoneal dialysis admitted to hospital with mental status changes and did have a positive COVID test blood culture subsequently came back positive for staph epidermidis On today's evaluation there is 10/22/2021 the patient a remains to befebrile, the patient is awake and alert, the patient is breathing comfortably on room air , the patient denies nausea vomiting Abdominal painor diarrhea , overall feeling better Objective - Vital Signs Vital signs: Vital Signs Temp 97.8 F 10/22/21 21:42 Pulse 71 10/22/21 21:42 Resp 15 10/22/21 21:42 BP 127/77 10/22/21 21:42 Pulse Ox 93 L 10/22/21 21:42 Intake & Output 10/22/21 10/22/21 10/23/21 06:59 18:59 06:59 Output Total 800 500 600 Balance -800 -500 -600 Weight 74.843 kg Output: Urine 800 500 600 Other: Voiding Method Indwelling Catheter Indwelling Catheter Indwelling Catheter # Bowel Movements 1 - Exam GENERAL DESCRIPTION: Middle-aged female lying in bed, no distress. No tachypnea or accessory muscle of respiration use. LUNGS: Unlabored breathing. Decrease intensity of breath sounds. No wheeze or crackle. HEART: S1, S2, regular rate and rhythm. No loud murmur ABDOMEN: Soft, no tenderness , guarding or rigidity, no organomegaly EXTREMITIES: No edema of feet. - Labs CBC & Chem 7: 10/18/21 07:33 10/19/21 06:53 Labs: Microbiology - Last 24 Hours (Table) 10/18/21 07:33 Blood Culture - Preliminary Blood No Growth after 96 hours Assessment and Plan (1) Positive blood culture Current Visit: Yes Status: Acute Code(s): R78.81 - BACTEREMIA SNOMED Code(s): 206467373 (2) COVID-19 virus infection Current Visit: No Status: Acute Code(s): U07.1 - COVID-19 SNOMED Code(s): 280616901 Plan: 1--Patient with a covid19 pneumonia in this patient respiratory status seem to have shown clinical improvement as the patient is not requiring supplemental oxygen, patient treatment is supportive of dexamethasone, Lovenox zinc and ascorbic acid. 2patient with positive blood culture with gram-positive cocci possible skin contaminant as finalized as staph epi , repeat blood culture be negative, patient is currently off vancomycin, will continue to monitor the patient closely off antibiotic therapy and continue with supportive care Time with Patient: Less than 30
[2021-10-23] MEDS: DIALYSIS (PERIT 1.5%) 2,000 ML 30 G/2,000 ML BAG INTRAPERIT SCH ×5 (00:09→23:40)
[2021-10-23] MEDS: ACETAMINOPHEN TAB 500 MG TAB PO PRN (00:25)
[2021-10-23] MEDS: METOPROLOL TARTRATE 12.5 MG TAB PO SCH ×2 (08:04→19:24)
[2021-10-23] MEDS: POTASSIUM CHLORIDE ER 20 MEQ TAB.ER PO SCH (08:04)
[2021-10-23] MEDS: ASPIRIN 81 MG PO SCH (08:05)
[2021-10-23] MEDS: ATORVASTATIN 80 MG TAB PO SCH (08:05)
[2021-10-23] MEDS: TORSEMIDE 20 MG TAB PO SCH (08:05)
[2021-10-23] MEDS: CALCIUM ACETATE 667 MG TAB PO SCH ×3 (08:05→16:38)
[2021-10-23] MEDS: ENOXAPARIN 30 MG/0.3 ML SYRINGE SQ SCH (08:06)
[2021-10-23] MEDS: DEXAMETHASONE SOD PHOSPHATE 10 MG/ML 1 ML VIAL IV SCH (08:06)
[2021-10-23] MEDS: ALBUTEROL HFA INHALER INHALATION SCH ×4 (09:32→20:47)
--- NOTE | 2021-10-23 11:25 | MISC ---
MISCELLANOUS REPORT QUERY: Metabolic encephalopathy and COVID encephalopathy. MMODL / IJN: [id number] /
[2021-10-23] MEDS ORDERED: LACTULOSE 20 GM/30 ML CUP PO ONE (12:00)
--- NOTE | 2021-10-23 17:44 | P.PN ---
Subjective Principal diagnosis: Pt is seen for f/u for ESRD. Maintained on PD. No complaints. In isolation for COVID. O2 sats 94% on room air. Patient has been confused. This morning her PD fluid was not draining out. Patient states that she has not had a bowel movement for 2 days. There was no trouble in the PD exchanges this morning at 6 AM. Objective - Vital Signs Vital signs: Vital Signs Temp 97.6 F 10/23/21 14:00 Pulse 73 10/23/21 14:00 Resp 18 10/23/21 14:00 BP 114/64 10/23/21 14:00 Pulse Ox 94 L 10/23/21 14:00 Intake & Output 10/22/21 10/23/21 10/23/21 18:59 06:59 18:59 Output Total 500 600 Balance -500 -600 Weight 74.843 kg Output: Urine 500 600 Other: Voiding Method Indwelling Catheter Indwelling Catheter Indwelling Catheter # Bowel Movements 1 - Exam Examination patient is comfortable awake she is not in any acute distress. She has been confused. Examination of lower extremities shows no evidence of edema. Lungs and heart are not examined due to Covid isolation. [place] abdomen has been soft as per nursing staff - Labs CBC & Chem 7: 10/18/21 07:33 10/19/21 06:53 Labs: Microbiology - Last 24 Hours (Table) 10/18/21 07:33 Blood Culture - Preliminary Blood No Growth after 120 hours Assessment and Plan Assessment: #1 Covid 19 pneumonia in isolation #2 ESRD on peritoneal dialysis area difficulty in draining out PD fluid day most likely associated with constipation. We will treat with lactulose and try again at 6 PM. #3 anemia with ESRD #4 metabolic bone disease with ESRD #5 hypertension with ESRD #6 hypokalemia, s/p replacement. Plan: Continue current exchanges. treat constipation encourage increased oral intake
--- NOTE | 2021-10-23 18:31 | PN ---
PROGRESS NOTE DATE OF SERVICE: 10/21/2021 CHIEF COMPLAINT: Stage 5 CKD and delirium. HISTORY OF PRESENT ILLNESS: This lady seems about the same, but she is still very confused. REVIEW OF SYSTEMS: Not obtainable. She just keeps saying that she is "sick." PHYSICAL EXAM: She appears to be chronically ill. Chest sounds clear. Cardiac exam is normal with no rubs. The abdomen is soft, nontender. IMPRESSION: 1. Stage 5 chronic kidney disease. 2. Dehydration. 3. Mental status changes. PLAN: No change in program at this time. MMODL / IJN: [id number] /
--- NOTE | 2021-10-23 18:31 | PN ---
PROGRESS NOTE DATE OF SERVICE: 10/23/2021 CHIEF COMPLAINT: Renal failure and encephalopathy. HISTORY OF PRESENT ILLNESS: This lady is doing well, but she still remains somewhat lethargic and confused. She does seem to be slightly better. PHYSICAL EXAMINATION: She is more alert and speech seems to be flowing more easily. Chest is clear. Cardiac exam is normal. The abdomen is soft with no masses. IMPRESSION: 1. Stage 5 chronic kidney disease. 2. Delirium. PLAN: Continue to follow with Nephrology and consider discharge planning. Apparently she plans to go home with her son. She could also be a candidate for rehab. MMODL / IJN: [id number] /
--- NOTE | 2021-10-23 22:31 | P.PN ---
Subjective Progress Note Date: 10/23/21 Principal diagnosis: Bacteremia Patient is a 61-year female past medical history significant for end- stage renal disease on peritoneal dialysis admitted to hospital with mental status changes and did have a positive COVID test blood culture subsequently came back positive for staph epidermidis On today's evaluation there is 10/23/2021 the patient denies any fever or any chills, the patient is awake and alert, the patient is breathing comfortably on room air , the patient denies any chest pain or cough the patient denies any nausea vomiting abdominal pain and no diarrhea Objective - Vital Signs Vital signs: Vital Signs Temp 98.0 F 10/23/21 10:00 Pulse 64 10/23/21 10:00 Resp 16 10/23/21 10:00 BP 123/74 10/23/21 10:00 Pulse Ox 94 L 10/23/21 10:00 Intake & Output 10/22/21 10/23/21 10/23/21 18:59 06:59 18:59 Output Total 500 600 Balance -500 -600 Weight 74.843 kg Output: Urine 500 600 Other: Voiding Method Indwelling Catheter Indwelling Catheter Indwelling Catheter # Bowel Movements 1 - Exam GENERAL DESCRIPTION: Middle-aged female lying in bed, no distress. No tachypnea or accessory muscle of respiration use. LUNGS: Unlabored breathing. Decrease intensity of breath sounds. No wheeze or crackle. HEART: S1, S2, regular rate and rhythm. No loud murmur ABDOMEN: Soft, no tenderness , guarding or rigidity, no organomegaly EXTREMITIES: No edema of feet. - Labs CBC & Chem 7: 10/18/21 07:33 10/19/21 06:53 Labs: Microbiology - Last 24 Hours (Table) 10/18/21 07:33 Blood Culture - Preliminary Blood No Growth after 120 hours Assessment and Plan (1) Positive blood culture Current Visit: Yes Status: Acute Code(s): R78.81 - BACTEREMIA SNOMED Code(s): 709830522 (2) COVID-19 virus infection Current Visit: No Status: Acute Code(s): U07.1 - COVID-19 SNOMED Code(s): 544760268 Plan: 1--Patient with a covid19 pneumonia in this patient respiratory status seem to have shown clinical improvement as the patient is not requiring supplemental oxygen, patient to continue with dexamethasone, Lovenox zinc and ascorbic acid. 2patient with positive blood culture with gram-positive cocci possible skin contaminant as finalized as stapneisha de santiago , repeat blood culture be negative, patient is currently off vancomycin, will continue to monitor the patient closely off antibiotic therapy and continue with supportive care Time with Patient: Less than 30
[2021-10-24] MEDS: DIALYSIS (PERIT 1.5%) 2,000 ML 30 G/2,000 ML BAG INTRAPERIT SCH ×3 (05:15→17:42)
[2021-10-24] MEDS: CALCIUM ACETATE 667 MG TAB PO SCH ×3 (07:47→17:41)
[2021-10-24] MEDS: ENOXAPARIN 30 MG/0.3 ML SYRINGE SQ SCH (07:47)
[2021-10-24] MEDS: TORSEMIDE 20 MG TAB PO SCH (07:48)
[2021-10-24] MEDS: METOPROLOL TARTRATE 12.5 MG TAB PO SCH ×2 (07:48→21:24)
[2021-10-24] MEDS: POTASSIUM CHLORIDE ER 20 MEQ TAB.ER PO SCH (07:48)
[2021-10-24] MEDS: ATORVASTATIN 80 MG TAB PO SCH (07:48)
[2021-10-24] MEDS: ASPIRIN 81 MG PO SCH (07:48)
[2021-10-24] MEDS: DEXAMETHASONE SOD PHOSPHATE 10 MG/ML 1 ML VIAL IV SCH (07:48)
[2021-10-24] MEDS: ALBUTEROL HFA INHALER INHALATION SCH ×4 (08:48→20:19)
[2021-10-24 11:26] LABS: African American GFR (CKD) 9 (>60 ml/min/1.73 sqM); Anion Gap 9 mmol/L; Blood Urea Nitrogen 47 mg/dL (7-17); Calcium 8.4 mg/dL (8.4-10.2); Carbon Dioxide 27 mmol/L (22-30); Chloride 97 mmol/L (98-107); Glucose 250 mg/dL (74-99); Non-African American GFR(CKD) 7 (>60 ml/min/1.73 sqM); Sodium 133 mmol/L (137-145)
[2021-10-24 11:39] LABS: Potassium 3.6 mmol/L (3.5-5.1)
--- NOTE | 2021-10-24 12:13 | P.PN ---
Subjective Principal diagnosis: Pt is seen for f/u for ESRD. Maintained on PD. No complaints. In isolation for COVID. O2 sats 93% to 96% on room air. Patient has been confused. No issues with PD currently Objective - Vital Signs Vital signs: Vital Signs Temp 97.7 F 10/24/21 05:16 Pulse 75 10/24/21 05:16 Resp 18 10/24/21 05:16 BP 126/76 10/24/21 05:16 Pulse Ox 93 L 10/24/21 05:16 Intake & Output 10/23/21 10/24/21 10/24/21 18:59 06:59 18:59 Intake Total 1080 Balance 1080 Intake: Oral 1080 Other: Voiding Method Indwelling Catheter Bedside Commode Bedside Commode # Voids 2 # Bowel Movements 3 0 - Exam Examination patient is comfortable awake she is not in any acute distress. She has been confused. Examination of lower extremities shows no evidence of edema. Lungs and heart are not examined due to Covid isolation. Abdomen has been soft - Labs CBC & Chem 7: 10/18/21 07:33 10/24/21 10:20 Labs: Abnormal Lab Results - Last 24 Hours (Table) 10/24/21 Range/Units 10:20 Sodium 133 L (137-145) mmol/L Chloride 97 L (98-107) mmol/L BUN 47 H (7-17) mg/dL Creatinine 5.67 H (0.52-1.04) mg/dL Glucose 250 H (74-99) mg/dL Microbiology - Last 24 Hours (Table) 10/18/21 07:33 Blood Culture - Final Blood No Growth after 144 hours Assessment and Plan Assessment: #1 Covid 19 pneumonia in isolation #2 ESRD on peritoneal dialysis continue current PD exchanges. No issues with dialysis today. #3 anemia with ESRD #4 metabolic bone disease with ESRD #5 hypertension with ESRD #6 hypokalemia, s/p replacement. #7 encephalopathy, etiology unclear Ammonia level was not elevated
[2021-10-25] MEDS: DIALYSIS (PERIT 1.5%) 2,000 ML 30 G/2,000 ML BAG INTRAPERIT SCH ×4 (00:26→16:42)
[2021-10-25] MEDS: TORSEMIDE 20 MG TAB PO SCH (07:20)
[2021-10-25] MEDS: POTASSIUM CHLORIDE ER 20 MEQ TAB.ER PO SCH (07:20)
[2021-10-25] MEDS: METOPROLOL TARTRATE 12.5 MG TAB PO SCH ×2 (07:20→20:08)
[2021-10-25] MEDS: CALCIUM ACETATE 667 MG TAB PO SCH ×3 (07:21→16:41)
[2021-10-25] MEDS: DEXAMETHASONE SOD PHOSPHATE 10 MG/ML 1 ML VIAL IV SCH (07:21)
[2021-10-25] MEDS: ASPIRIN 81 MG PO SCH (07:21)
[2021-10-25] MEDS: ATORVASTATIN 80 MG TAB PO SCH (07:21)
[2021-10-25] MEDS: ENOXAPARIN 30 MG/0.3 ML SYRINGE SQ SCH (07:22)
[2021-10-25] MEDS: ALBUTEROL HFA INHALER INHALATION SCH ×4 (07:56→20:12)
[2021-10-25 11:14] LABS: African American GFR (CKD) 9.5 (60.0-200.0); Anion Gap 16.3 mmol/L (10.00-18.00); BUN/Creat Ratio 7.73 Ratio (12.00-20.00); Blood Urea Nitrogen 40.2 mg/dL (9.0-27.0); Calcium 8.7 mg/dL (8.7-10.3); Carbon Dioxide 24.7 mmol/L (20.0-27.5); Non-African American GFR(CKD) 8.2 (60.0-200.0); Potassium 3.4 mmol/L (3.5-5.5)
--- NOTE | 2021-10-25 12:20 | P.PN ---
Subjective Principal diagnosis: Pt is seen for f/u for ESRD. Maintained on PD. No complaints. In isolation for COVID. O2 sats 93% to 96% on room air. Confusion is better. Mental status appears to be normal. No issues with PD currently Objective - Vital Signs Vital signs: Vital Signs Temp 97.9 F 10/25/21 10:00 Pulse 71 10/25/21 10:00 Resp 16 10/25/21 10:00 BP 125/69 10/25/21 10:00 Pulse Ox 97 10/25/21 10:00 Intake & Output 10/24/21 10/25/21 10/25/21 18:59 06:59 18:59 Other: Voiding Method Bedside Commode CAPD CAPD # Voids 2 2 # Bowel Movements 1 - Exam Examination patient is comfortable awake she is not in any acute distress. She alert and oriented 3 today Examination of lower extremities shows no evidence of edema. Lungs and heart are not examined due to Covid isolation. Abdomen has been soft - Labs CBC & Chem 7: 10/18/21 07:33 10/25/21 07:29 Labs: Abnormal Lab Results - Last 24 Hours (Table) 10/25/21 Range/Units 07:29 Potassium 3.4 L (3.5-5.5) mmol/L BUN 40.2 H (9.0-27.0) mg/dL Creatinine 5.2 H (0.6-1.5) mg/dL Est GFR (CKD-EPI)AfAm 9.5 L (60.0-200.0) Est GFR (CKD-EPI)NonAf 8.2 L (60.0-200.0) BUN/Creatinine Ratio 7.73 L (12.00-20.00) Ratio Glucose 185 H (70-110) mg/dL Microbiology - Last 24 Hours (Table) 10/18/21 07:33 Blood Culture - Final Blood No Growth after 144 hours Assessment and Plan Assessment: #1 Covid 19 pneumonia in isolation #2 ESRD on peritoneal dialysis continue current PD exchanges. No issues with dialysis today. #3 anemia with ESRD #4 metabolic bone disease with ESRD #5 hypertension with ESRD #6 hypokalemia, s/p replacement. #7 encephalopathy, etiology unclear Ammonia level was not elevated mentation currently significantly improved and back to normal. Plan: Continue current exchanges. Okay for discharge from nephrology standpoint.
--- NOTE | 2021-10-25 19:39 | PN ---
PROGRESS NOTE CHIEF COMPLAINT: Mental status changes, dehydration, stage 5 CKD and COVID. HISTORY OF PRESENT ILLNESS: This lady is doing much better. She is much more awake and alert and probably nearly back to normal. She would like to go home. Arrangements apparently are being made for the family members to help. She lives with a young son already. PHYSICAL EXAMINATION: Her chest is clear. Cardiac exam is normal. Abdomen is soft, nontender. IMPRESSION: 1. Mental status changes. 2. Encephalopathy. 3. Stage 5 chronic kidney disease, on dialysis. 4. Chronic obstructive pulmonary disease. 5. Dehydration. 6. COVID-19. PLAN: It was planned that she would go home today, but apparently a sister in [place] is coming here to help set up the home situation and has asked that we hold her discharge for a few days until she can get here and make sure that the discharge plan is a safe one. JAM / LADONNA: [id number] /
--- NOTE | 2021-10-25 19:48 | PN ---
PROGRESS NOTE DATE OF SERVICE: 10/24/2021 CHIEF COMPLAINT: COVID and renal failure. HISTORY OF PRESENT ILLNESS: This lady is doing a little bit better every day. She is more alert. She still has a little trouble with confusion and memory. She denies any headaches, chest pain, shortness of breath, nausea, etc. PHYSICAL EXAMINATION: Her chest is clear. Cardiac exam is normal. Abdomen is soft, nontender. IMPRESSION: 1. Stage 5 chronic kidney disease. 2. Delirium. 3. COVID-19. PLAN: She is improving every day and discharge planning is being sought. MMODL / IJN: [id number] /
--- NOTE | 2021-10-25 22:43 | P.PN ---
Subjective Progress Note Date: 10/24/21 Principal diagnosis: Bacteremia Patient is a 61-year female past medical history significant for end- stage renal disease on peritoneal dialysis admitted to hospital with mental status changes and did have a positive COVID test blood culture subsequently came back positive for staph epidermidis On today's evaluation there is 10/24/2021 the patient remains to be afebrile, the patient is awake and alert however is complaining of feeling confused, the patient is breathing comfortably on room air , the patient denies any chest pain or cough the patient denies any nausea vomiting abdominal pain and no diarrhea Objective - Vital Signs Vital signs: Vital Signs Temp 97.7 F 10/24/21 05:16 Pulse 75 10/24/21 05:16 Resp 18 10/24/21 05:16 BP 126/76 10/24/21 05:16 Pulse Ox 93 L 10/24/21 05:16 Intake & Output 10/23/21 10/24/21 10/24/21 18:59 06:59 18:59 Intake Total 1080 Balance 1080 Intake: Oral 1080 Other: Voiding Method Indwelling Catheter Bedside Commode Bedside Commode # Voids 2 # Bowel Movements 3 0 - Exam GENERAL DESCRIPTION: Middle-aged female lying in bed, no distress. No tachypnea or accessory muscle of respiration use. LUNGS: Unlabored breathing. Decrease intensity of breath sounds. No wheeze or crackle. HEART: S1, S2, regular rate and rhythm. No loud murmur ABDOMEN: Soft, no tenderness , guarding or rigidity, no organomegaly EXTREMITIES: No edema of feet. - Labs CBC & Chem 7: 10/18/21 07:33 10/25/21 07:29 Labs: Abnormal Lab Results - Last 24 Hours (Table) 10/24/21 Range/Units 10:20 Sodium 133 L (137-145) mmol/L Chloride 97 L (98-107) mmol/L BUN 47 H (7-17) mg/dL Creatinine 5.67 H (0.52-1.04) mg/dL Glucose 250 H (74-99) mg/dL Microbiology - Last 24 Hours (Table) 10/18/21 07:33 Blood Culture - Final Blood No Growth after 144 hours Assessment and Plan (1) Positive blood culture Current Visit: Yes Status: Acute Code(s): R78.81 - BACTEREMIA SNOMED Code(s): 018391429 (2) COVID-19 virus infection Current Visit: No Status: Acute Code(s): U07.1 - COVID-19 SNOMED Code(s): 137883784 Plan: 1--Patient with a covid19 pneumonia in this patient respiratory status seem to have shown clinical improvement as the patient is not requiring supplemental oxygen, patient to continue with dexamethasone, Lovenox zinc and ascorbic acid. 2patient with positive blood culture with gram-positive cocci possible skin contaminant as finalized as staph epi , repeat blood culture be negative, patient is currently off vancomycin and continue with supportive care
--- NOTE | 2021-10-25 22:44 | P.PN ---
Subjective Progress Note Date: 10/25/21 Principal diagnosis: Bacteremia Patient is a 61-year female past medical history significant for end- stage renal disease on peritoneal dialysis admitted to hospital with mental status changes and did have a positive COVID test blood culture subsequently came back positive for staph epidermidis On today's evaluation there is 10/25/2021 the patient denies any fevers or any chills, the patient is breathing comfortably on room air denies any chest pain or cough. No no abdominal pain and no diarrhea Objective - Vital Signs Vital signs: Vital Signs Temp 97.8 F 10/25/21 18:00 Pulse 74 10/25/21 18:00 Resp 16 10/25/21 18:00 BP 136/68 10/25/21 18:00 Pulse Ox 97 10/25/21 18:00 Intake & Output 10/25/21 10/25/21 10/26/21 06:59 18:59 06:59 Weight 74.843 kg Other: Voiding Method CAPD CAPD Toilet CAPD # Voids 2 # Bowel Movements 1 - Exam GENERAL DESCRIPTION: Middle-aged female lying in bed, no distress. No tachypnea or accessory muscle of respiration use. LUNGS: Unlabored breathing. Decrease intensity of breath sounds. No wheeze or crackle. HEART: S1, S2, regular rate and rhythm. No loud murmur ABDOMEN: Soft, no tenderness , guarding or rigidity, no organomegaly EXTREMITIES: No edema of feet. - Labs CBC & Chem 7: 10/18/21 07:33 10/25/21 07:29 Labs: Abnormal Lab Results - Last 24 Hours (Table) 10/25/21 Range/Units 07:29 Potassium 3.4 L (3.5-5.5) mmol/L BUN 40.2 H (9.0-27.0) mg/dL Creatinine 5.2 H (0.6-1.5) mg/dL Est GFR (CKD-EPI)AfAm 9.5 L (60.0-200.0) Est GFR (CKD-EPI)NonAf 8.2 L (60.0-200.0) BUN/Creatinine Ratio 7.73 L (12.00-20.00) Ratio Glucose 185 H (70-110) mg/dL Assessment and Plan (1) Positive blood culture Current Visit: Yes Status: Acute Code(s): R78.81 - BACTEREMIA SNOMED Code(s): 692666357 (2) COVID-19 virus infection Current Visit: No Status: Acute Code(s): U07.1 - COVID-19 SNOMED Code(s): 882350967 Plan: 1--Patient with a covid19 pneumonia in this patient respiratory status seem to have shown clinical improvement as the patient is not requiring supplemental oxygen, patient dexamethasone has been discontinued and the patient will continue with Lovenox zinc and ascorbic acid. 2patient with positive blood culture with gram-positive cocci possible skin contaminant as finalized as staph epi , repeat blood culture be negative, patient is currently off vancomycin and continue with supportive care Time with Patient: Less than 30
[2021-10-26] MEDS: DIALYSIS (PERIT 1.5%) 2,000 ML 30 G/2,000 ML BAG INTRAPERIT SCH ×4 (00:33→17:09)
[2021-10-26] MEDS: ENOXAPARIN 30 MG/0.3 ML SYRINGE SQ SCH (08:44)
[2021-10-26] MEDS: TORSEMIDE 20 MG TAB PO SCH (08:45)
[2021-10-26] MEDS: METOPROLOL TARTRATE 12.5 MG TAB PO SCH ×2 (08:45→21:54)
[2021-10-26] MEDS: CALCIUM ACETATE 667 MG TAB PO SCH ×3 (08:45→17:10)
[2021-10-26] MEDS: ATORVASTATIN 80 MG TAB PO SCH (08:45)
[2021-10-26] MEDS: ASPIRIN 81 MG PO SCH (08:45)
[2021-10-26] MEDS: POTASSIUM CHLORIDE ER 20 MEQ TAB.ER PO SCH (08:45)
[2021-10-26] MEDS: ALBUTEROL HFA INHALER INHALATION SCH ×4 (10:53→19:59)
--- NOTE | 2021-10-26 15:30 | P.PN ---
Subjective Progress Note Date: 10/26/21 Principal diagnosis: Bacteremia Patient is a 61-year female past medical history significant for end- stage renal disease on peritoneal dialysis admitted to hospital with mental status changes and did have a positive COVID test blood culture subsequently came back positive for staph epidermidis On today's evaluation there is 10/26/2021 the patient remains to be afebrile, the patient is breathing comfortably on room air, the patient denies any chest pain or cough. No no abdominal pain and no diarrhea, feeling much better and wants to go home Objective - Vital Signs Vital signs: Vital Signs Temp 98.2 F 10/26/21 08:25 Pulse 65 10/26/21 08:25 Resp 17 10/26/21 08:25 BP 103/63 10/26/21 08:25 Pulse Ox 95 10/26/21 08:25 Intake & Output 10/25/21 10/26/21 10/26/21 18:59 06:59 18:59 Weight 74.843 kg Other: Voiding Method CAPD Toilet Toilet CAPD CAPD # Voids 1 - Exam GENERAL DESCRIPTION: Middle-aged female lying in bed, no distress. No tachypnea or accessory muscle of respiration use. LUNGS: Unlabored breathing. Decrease intensity of breath sounds. No wheeze or crackle. HEART: S1, S2, regular rate and rhythm. No loud murmur ABDOMEN: Soft, no tenderness , guarding or rigidity, no organomegaly EXTREMITIES: No edema of feet. - Labs CBC & Chem 7: 10/18/21 07:33 10/25/21 07:29 Assessment and Plan (1) Positive blood culture Current Visit: Yes Status: Acute Code(s): R78.81 - BACTEREMIA SNOMED Code(s): 853724291 (2) COVID-19 virus infection Current Visit: No Status: Acute Code(s): U07.1 - COVID-19 SNOMED Code(s): 666140166 Plan: 1--Patient with a covid19 pneumonia in this patient respiratory status seem to have shown clinical improvement as the patient is not requiring supplemental oxygen, patient dexamethasone has been discontinued and the patient will continue with Lovenox zinc and ascorbic acid. No need for any steroids or antibiotics on discharge 2patient with positive blood culture with gram-positive cocci possible skin contaminant as finalized as staph epi , repeat blood culture be negative, patient is currently off vancomycin and continue with supportive care
--- NOTE | 2021-10-26 17:47 | P.PN ---
Subjective Principal diagnosis: Pt is seen for f/u for ESRD. Maintained on PD. No complaints. In isolation for COVID. O2 sats 93% to 96% on room air. Confusion is better. Mental status appears to be normal. No issues with PD currently Objective - Vital Signs Vital signs: Vital Signs Temp 97.7 F 10/26/21 16:48 Pulse 67 10/26/21 16:48 Resp 17 10/26/21 16:48 BP 133/77 10/26/21 16:48 Pulse Ox 96 10/26/21 16:48 Intake & Output 10/25/21 10/26/21 10/26/21 18:59 06:59 18:59 Weight 74.843 kg Other: Voiding Method CAPD Toilet Toilet CAPD CAPD # Voids 1 - Exam Examination patient is comfortable awake she is not in any acute distress. She alert and oriented 3 today Examination of lower extremities shows no evidence of edema. Lungs and heart are not examined due to Covid isolation. Abdomen has been soft - Labs CBC & Chem 7: 10/18/21 07:33 10/25/21 07:29 Assessment and Plan Assessment: #1 Covid 19 pneumonia in isolation, currently on room air with O2 sats 93-96%. #2 ESRD on peritoneal dialysis continue current PD exchanges. No issues with dialysis today. #3 anemia with ESRD #4 metabolic bone disease with ESRD #5 hypertension with ESRD #6 hypokalemia, s/p replacement. #7 encephalopathy, etiology unclear Ammonia level was not elevated mentation currently significantly improved and back to normal.
[2021-10-27] MEDS: DIALYSIS (PERIT 1.5%) 2,000 ML 30 G/2,000 ML BAG INTRAPERIT SCH ×3 (00:58→12:34)
[2021-10-27] MEDS: ALBUTEROL HFA INHALER INHALATION SCH ×3 (08:41→16:13)
[2021-10-27] MEDS: ENOXAPARIN 30 MG/0.3 ML SYRINGE SQ SCH (09:27)
[2021-10-27] MEDS: METOPROLOL TARTRATE 12.5 MG TAB PO SCH (09:27)
[2021-10-27] MEDS: POTASSIUM CHLORIDE ER 20 MEQ TAB.ER PO SCH (09:28)
[2021-10-27] MEDS: CALCIUM ACETATE 667 MG TAB PO SCH ×2 (09:28→12:34)
[2021-10-27] MEDS: TORSEMIDE 20 MG TAB PO SCH (09:28)
[2021-10-27] MEDS: ASPIRIN 81 MG PO SCH (09:28)
[2021-10-27] MEDS: ATORVASTATIN 80 MG TAB PO SCH (09:30)
[2021-10-27 10:21] VITALS: RESP 16; TEMP 97.8
--- NOTE | 2021-10-27 10:26 | P.PN ---
Subjective Patient is seen in follow-up for end-stage renal disease. She is maintained on peritoneal dialysis. No problems with PD changes. Awake and alert. No active complaints. Vital signs are stable. HEENT: Head exam is unremarkable. LUNGS: Breath sounds decreased. HEART: Rate and Rhythm are regular. ABDOMEN: Soft, no distention. EXTREMITITES: No edema. Objective - Vital Signs Vital signs: Vital Signs Temp 97.8 F 10/27/21 10:00 Pulse 80 10/27/21 10:00 Resp 16 10/27/21 10:00 BP 117/67 10/27/21 10:00 Pulse Ox 97 10/27/21 10:00 Intake & Output 10/26/21 10/27/21 10/27/21 18:59 06:59 18:59 Intake Total 480 Balance 480 Intake: Oral 480 Other: Voiding Method Toilet CAPD CAPD CAPD # Voids 2 - Labs CBC & Chem 7: 10/18/21 07:33 10/25/21 07:29 Assessment and Plan Plan: Assessment: 1. End-stage renal disease maintained on peritoneal dialysis. 2. Acute hypoxic respiratory failure. 3. COVID-19 pneumonia. 4. Metabolic acidosis secondary to chronic kidney disease, resolved.. 5. 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 6. Bacillus/staph epi bacteremia. Likely contaminant. Infectious disease following. 7. Hypokalemia from poor intake and PD losses.On potassium supplementation. Plan:. Maintain current PD exchanges.
[2021-10-27 14:45] VITALS: BP 115/68; PULSE 68
--- NOTE | 2021-10-29 16:27 | PN ---
PROGRESS NOTE DATE OF SERVICE: 10/26/2021 CHIEF COMPLAINT: Delirium and renal failure. HISTORY OF PRESENT ILLNESS: This lady is more alert each day. Dialysis continues. It was thought that she could be discharged, but she has a relative in [place] who is coming to help take care of her and asked that we hold the discharge until she is here. PHYSICAL EXAM: Hydration is improved. She is still chronically ill in appearance. Her chest is clear. The cardiac exam is normal. Abdomen is soft, nontender. IMPRESSION: 1. Dehydration. 2. Stage 5 chronic kidney disease, on dialysis. 3. History of hypertension. 4. Delirium. PLAN: Hold discharge until her relative is in town to help take her home. MMODL / IJN: [id number] /
--- NOTE | 2021-10-29 16:31 | DS ---
DISCHARGE SUMMARY CHIEF COMPLAINT: Dehydration, mental status changes, stage 5 CKD. HISTORY OF PRESENT ILLNESS AND PHYSICAL EXAMINATION: Details of this lady's history and physical can be found in the initial workup. COURSE IN THE HOSPITAL: After admission, she was placed on bedrest, started on intravenous fluids and she was seen by Nephrology. Her hemodialysis was restarted. During her hospitalization, she gradually became more awake and alert. She was definitely improving and discharge arrangements were being made. She had a relative in [place] who was traveling here to help take care of her. When she arrived, she was discharged and she will follow up with us and Nephrology. FINAL DIAGNOSES: 1. Dehydration. 2. Stage 5 CKD, on dialysis. 3. Delirium. 4. Hypertension. OPERATIONS: None. CONSULTATIONS: Nephrology. She is improved. MMALEXSANDER / LADONNA: [id number] /
--- NOTE | 2021-10-29 20:30 | PN ---
PROGRESS NOTE DATE OF SERVICE: 10/23/2021 CHIEF COMPLAINT: Delirium, renal failure. HISTORY OF PRESENT ILLNESS: This lady is doing a little bit better. She is a little bit more alert. Dialysis continues and we are working on a discharge plan. PHYSICAL EXAMINATION: Her chest is clear. Cardiac exam is normal. Abdomen is soft, nontender. IMPRESSION: 1. Stage 5 chronic kidney disease. 2. Delirium. PLAN: No change in program. Continue to work on a discharge plan. MMODL / IJN: [id number] /
--- NOTE | 2021-10-30 20:16 | PN ---
PROGRESS NOTE DATE OF SERVICE: CHIEF COMPLAINT: Renal failure and delirium. HISTORY OF PRESENT ILLNESS: This lady is about the same. She is being dialyzed each day. She is a little bit more alert, but remains extremely confused. She has no focal neurologic deficits, and she is not complaining of any shortness of breath, chest pain, headache, etc. PHYSICAL EXAMINATION: She appears to be chronically ill. Chest is fairly clear with only occasional rales. Cardiac exam is normal. Abdomen is soft, nontender. IMPRESSION: 1. Stage 5 chronic kidney disease, on dialysis. 2. Encephalopathy. PLAN: Continue to monitor her neurologic status as her dialysis continues. MMODL / IJN: [id number] /
== END 2021-10-27 16:00 | disposition home or self-care (01) | DRG 177 ==
LOC: EC 11:17 → 4SSUR 15:17
PROVIDERS: ADMIT Family Medicine; ATTEND Family Medicine
PROC: 3E1M39Z Irrigation of Peritoneal Cavity using Dialysate, Percutaneous Approach (ICD-10-PCS; principal; 2021-10-15)
DX: U07.1 COVID-19 (principal); J96.01 Acute respiratory failure with hypoxia; J12.82 Pneumonia due to coronavirus disease 2019; N18.5 Chronic kidney disease, stage 5; E87.2 Acidosis; I12.0 Hypertensive chronic kidney disease with stage 5 chronic kidney disease or end stage renal disease; J44.0 Chronic obstructive pulmonary disease with (acute) lower respiratory infection; G93.49 Other encephalopathy; Z78.9 Other specified health status; Z79.82 Long term (current) use of aspirin; Z79.899 Other long term (current) drug therapy; Z95.5 Presence of coronary angioplasty implant and graft; Z87.891 Personal history of nicotine dependence; Z99.2 Dependence on renal dialysis; Z80.0 Family history of malignant neoplasm of digestive organs; Z86.718 Personal history of other venous thrombosis and embolism; D63.1 Anemia in chronic kidney disease; E11.22 Type 2 diabetes mellitus with diabetic chronic kidney disease; E78.5 Hyperlipidemia, unspecified; E86.0 Dehydration; E87.6 Hypokalemia; I25.10 Atherosclerotic heart disease of native coronary artery without angina pectoris; I25.2 Old myocardial infarction; K59.00 Constipation, unspecified; M89.8X9 Other specified disorders of bone, unspecified site; I83.90 Asymptomatic varicose veins of unspecified lower extremity; I95.9 Hypotension, unspecified
CPT/HCPCS: 36410; 36415; 71045; 76937; 80048; 80053; 80202; 81001; 82140; 83605; 83615; 83735; 83880; 84100; 84145; 84484; 85025; 85379; 85384; 85610; 85730; 86140; 87040; 87070; 87205; 87635; 89050; 93005; 93970; 94640; 96374; 99285

== ENCOUNTER → 2022-04-11 | Outpatient (CLI) | payer MEDICARE, OTHER ==
[2022-04-12 00:06] LABS: Blood Urea Nitrogen 42.8 mg/dL (9.0-27.0); Non-African American GFR(CKD) 6.9 (60.0-200.0); Potassium 5.2 mmol/L (3.5-5.5)
[2022-04-12 01:08] LABS: HCT 46.7 % (37.2-46.3); HGB 13.8 g/dL (12.0-15.0); MCH 28.5 pg (27.0-32.0); MCHC 29.6 g/dL (32.0-37.0); MCV 96.5 fL (80.0-97.0); Mean Platelet Volume 10.3 fL (9.5-12.2); NRBC Per 100 WBC 0 /100 WBCS (0.0-0.0); Platelet Count 313 X 10*3/uL (140-440); RBC 4.84 X 10*6/uL (4.10-5.20); RDW 15.5 % (11.5-14.5); WBC 8.68 X 10*3/uL (4.50-10.00)
== END | disposition home or self-care (01) ==
LOC: LABPAT 14:50
PROVIDERS: ATTEND Internal Medicine Interventional Cardiology
DX: Z01.812 Encounter for preprocedural laboratory examination (principal); I25.10 Atherosclerotic heart disease of native coronary artery without angina pectoris
CPT/HCPCS: 36415; 80051; 82565; 84520; 85027

== ENCOUNTER 2022-04-22 06:21 | Day surgery (SDC) | payer MEDICARE, OTHER ==
[~2022-04-22 06:21] MED LIST changes: +ALPRAZolam 0.25 MG TAB PO PRN; +ALPRAZolam 0.5 MG TAB PO PRN; -DEXAMETHASONE SOD PHOSPHATE 10 MG/ML 1 ML VIAL IV ONE; +HEPARIN SODIUM,PORCINE 10,000 UNIT in SODIUM CHLORIDE 0.9% 1,000 ML IRRIGATION PRN; +HEPARIN SODIUM,PORCINE 2,500 UNIT in SODIUM CHLORIDE 0.9% 250 ML IRRIGATION PRN; -HEPARIN SODIUM,PORCINE 5,000 UNIT/ML 1 ML VIAL SQ ONE; -HYDROmorphone 0.5 MG/0.5 ML SYRINGE IVP PRN; -LACTATED RINGERS 1,000 ML IV SCH; -LIDOCAINE 1% 20 ML VIAL (10MG/ML) FOR IV START INTRADERMA PRN; -MIDAZOLAM 2 MG/2 ML VIAL IV PRN; +NITROGLYCERIN SL TABS 0.4 MG TAB SUBLINGUAL PRN; -ONDANSETRON 4 MG/2 ML VIAL IVP ONE; -fentaNYL (PF) 50 MCG/ML 2 ML AMP IV PRN
[2022-04-22] MEDS: SODIUM CHLORIDE 0.9% 1,000 ML in EMPTY BAG 1 BAG IV SCH ×5 (06:46→20:06)
[2022-04-22 06:55] LABS: Glucose,Whole Blood 137 mg/dL (70-110)
[2022-04-22] MEDS ORDERED: SODIUM CHLORIDE 0.9% 1,000 ML IV ONE (06:58)
[2022-04-22] MEDS ORDERED: ASPIRIN 325 MG TAB PO ONE (07:00)
[2022-04-22] MEDS ORDERED: ATORVASTATIN 80 MG TAB PO ONE (07:00)
[2022-04-22 07:02] VITALS: RESP 16
[2022-04-22] MEDS ORDERED: VERAPAMIL 2.5 MG/ML 2 ML AMP ONE (07:15)
[2022-04-22] MEDS ORDERED: HEPARIN SODIUM 1,000 UN/ML (10ML VL) ONE (07:33)
[2022-04-22] MEDS ORDERED: MIDAZOLAM 2 MG/2 ML VIAL IV ONE (07:46)
[2022-04-22] MEDS ORDERED: LIDOCAINE 1% INJ 10MG/ML (5 ML VIAL-PF) SQ ONE (07:46)
[2022-04-22] MEDS ORDERED: fentaNYL (PF) 50 MCG/ML 2 ML AMP ONE (07:48)
[2022-04-22] MEDS ORDERED: fentaNYL (PF) 50 MCG/ML 2 ML AMP IV ONE (07:50)
[2022-04-22] MEDS: VERAPAMIL SYRINGE (5 MG/10 ML) INTRAARTER ONE ×2 (07:52→08:31)
[2022-04-22] MEDS ORDERED: HYDROmorphone 1 MG/ML 1 ML SYRINGE ONE (07:54)
[2022-04-22] MEDS ORDERED: HYDROmorphone 1 MG/ML 1 ML SYRINGE IVP ONE (07:55)
[2022-04-22] MEDS: HEPARIN SODIUM 1,000 UN/ML (10ML VL) IV ONE ×2 (07:58→08:10)
[2022-04-22] MEDS ORDERED: SODIUM CHLORIDE 0.9% 100 ML BAG IV ONE (08:00)
[2022-04-22] MEDS ORDERED: ADENOSINE 3 MG/ML 4 ML VIAL ONE (08:00)
[2022-04-22] MEDS ORDERED: PRASUGREL 10 MG TAB ONE (08:18)
[2022-04-22] MEDS ORDERED: PRASUGREL 10 MG TAB PO ONE (08:22)
[2022-04-22] MEDS ORDERED: NITROGLYCERIN 1000MCG/10ML SYRINGE INTRACORON ONE (08:22)
[2022-04-22] MEDS ORDERED: IOPAMIDOL-370 125ML BTL INJ ONE (08:31)
[2022-04-22] MEDS ORDERED: ZOLPIDEM 5 MG TAB PO PRN (08:34)
[2022-04-22] MEDS ORDERED: ATROPINE SULFATE 0.1 MG/ML 10ML SYRINGE IV PRN (08:34)
[2022-04-22] MEDS ORDERED: RX INFO: IV CONTRAST WAS GIVEN 1 EACH MISC MISCELLANE PRN (08:34)
[2022-04-22] MEDS ORDERED: MAG HYDROX/AL HYDROX/SIMETH 30 ML CUP PO PRN (08:34)
[2022-04-22] MEDS ORDERED: NITROGLYCERIN SL TABS 0.4 MG TAB SUBLINGUAL PRN (08:34)
--- NOTE | 2022-04-22 08:41 | P.PCN ---
Date of Procedure: 04/22/22 Operative Findings: CARDIAC CATHETERIZATION AND PERCUTANEOUS CORONARY INTERVENTION PERFORMING PHYSICIAN: Sanchez Gross MD, [facility] PROCEDURE PERFORMED: 1. Selective right and left coronary angiogram 2. Fractional flow reserve of the LAD 3. Successful stenting of proximal LAD using 3.5 x 15 mm Xience ALLISON which with an excellent angiographic results 4. Ultrasound-guided access of the right radial INDICATION: Chest discomfort and a 59-year-old female patient is known to have CAD with prior stenting of the mid LAD. She underwent myocardial perfusion imaging stress test and that revealed anterior ischemia COMPLICATION: None APPROACH: Right radial artery LEVEL OF SEDATION: Moderate with the sedation time off 43 minutes PROCEDURE DESCRIPTION: After obtaining an informed consent the patient was brought to the cardiac collaborative teacher. The right radial artery was cannulated using micropuncture technique under ultrasound guidance, the micropuncture wire passed easily then I placed 6-Somali sheath. After that I gave the patient 2 mg of verapamil intra-arterial and a total of 8000 use of heparin intravenous. Selective right and left coronary angiogram performed using JR4 and JL 3.5 catheters. Subsequently performed stenting of the LAD. SELECTIVE CORONARY ANGIOGRAM: The right coronary artery: Is a large caliber vessel and a dominant vessel. The RCA has mild disease in the midportion. Left main: Is angiographically normal. Bifurcates into an LCx and LAD The left circumflex: Is a large caliber vessel nondominant vessel. The LCx gives rises into an OM branch which appeared to be angiographically normal. After that has mild disease in the distal portion before gives rises into a second OM which is a small caliber vessel. The left anterior descending artery: The proximal LAD has eccentric lesion appears to be in the range of 60%. FFR was performed and came in to be ischemic. The stent in the mid LAD appears to be patent PCI OF THE LAD: Anticoagulation was initiated using heparin with continuous ACT monitoring. Subsequently using a JL 3 guiding I did equalization between the Doppler wire and the guiding catheter. Subsequently I did engage the left main and I did FFR of the LAD which came in to be ischemic. At that point I decided to stent the LAD. Direct stenting using 3.5 x 15 mm was performed. Postdilatation was performed using 3.75 mm balloon. Final angiogram showed an excellent angiographic result CONCLUSION: Intermediate lesion involving the proximal LAD. It was ischemic by FFR. I did perform successful stenting of the proximal LAD. The stent in the mid LAD is patent POSTPROCEDURE MANAGEMENT: #1 dual antiplatelet therapy using aspirin and Effient for at least 6 months. #2 aggressive cholesterol control #3 follow-up with the patient
[2022-04-22] MEDS ORDERED: SODIUM CHLORIDE 0.9% 1,000 ML in EMPTY BAG 1 BAG IV SCH (08:45)
[2022-04-22] MEDS ORDERED: MAGNESIUM OXIDE 400 MG TAB PO SCH (09:00)
[2022-04-22] MEDS: ATORVASTATIN 80 MG TAB PO SCH (09:04)
[2022-04-22] MEDS: ASPIRIN 81 MG PO SCH (09:04)
[2022-04-22] MEDS: METOPROLOL TARTRATE 12.5 MG TAB PO SCH ×2 (09:04→20:06)
[2022-04-22] MEDS: CALCIUM ACETATE 667 MG TAB PO SCH ×3 (09:04→20:06)
[2022-04-22] MEDS: TORSEMIDE 20 MG TAB PO SCH (09:07)
[2022-04-22 13:45] VITALS: BMI 27.7
[2022-04-22] MEDS: ALBUTEROL NEBULIZED 2.5 MG/3 ML INHALATION SCH ×3 (14:27→19:22)
[2022-04-23] MEDS: SODIUM CHLORIDE 0.9% 1,000 ML in EMPTY BAG 1 BAG IV SCH (06:19)
[2022-04-23 07:29] VITALS: BP 129/58; TEMP 97.5
[2022-04-23] MEDS: ALBUTEROL NEBULIZED 2.5 MG/3 ML INHALATION SCH (08:10)
[2022-04-23] MEDS: CALCIUM ACETATE 667 MG TAB PO SCH (08:14)
[2022-04-23] MEDS: METOPROLOL TARTRATE 12.5 MG TAB PO SCH (08:15)
[2022-04-23] MEDS: ATORVASTATIN 80 MG TAB PO SCH (08:15)
[2022-04-23] MEDS: ASPIRIN 81 MG PO SCH (08:15)
[2022-04-23] MEDS: TORSEMIDE 20 MG TAB PO SCH (08:20)
[2022-04-23] MEDS ORDERED: PRASUGREL 10 MG TAB PO SCH (09:00)
[2022-04-23 09:23] VITALS: PULSE 57
--- NOTE | 2022-04-23 17:58 | PN ---
PROGRESS NOTE DATE OF SERVICE: 04/23/2022 CHIEF COMPLAINT: Renal failure. HISTORY OF PRESENT ILLNESS: This lady is doing well. She underwent cardiac her cardiac cath yesterday and she believes she is going home today. PHYSICAL EXAMINATION: She is awake and alert and has no complaints. Chest is clear. Cardiac exam is normal. The abdomen is soft and nontender. The right arm appears to be normal. IMPRESSION: 1. Status post cardiac catheterization. 2. Renal failure. 3. History of coronary artery disease. PLAN: Probably home today. MMODL / IJN: [id number] /
--- NOTE | 2022-04-23 20:42 | CONS ---
CONSULTATION CHIEF COMPLAINT: Renal failure. HISTORY OF PRESENT ILLNESS: This is another [facility] visit for this 61-year-old white female who is being evaluated for a kidney transplant. She has a history of hypertension and myocardial infarction. Lately she has been doing fairly well and has not had a great deal of chest pain. She does continue to smoke. REVIEW OF SYSTEMS: She has had no recent syncope, confusion, headaches, neurologic problems, change in the vision or the hearing, chest pain, cough, hemoptysis, sputum production, orthopnea, PND, abdominal pain, nausea, vomiting, hematemesis, melena, hematochezia, jaundice, diabetes, etc. Past medical history, family history, and personal and social histories can all be found in her admitting summary. She is NOT ALLERGIC TO ANY MEDICATION. She has been on omeprazole, metoprolol, calcitriol, torsemide, calcium acetate, aspirin, trazodone and Nitrostat p.r.n. She has a history of hyperlipidemia. She continues to smoke. PHYSICAL EXAMINATION: Blood pressure 118/62 with a pulse 54 and regular, respirations of 16 and she is afebrile. In general she appears to be well developed, well nourished, and in no acute distress. Skin color is normal. Skin is warm and dry. Lymph nodes are not enlarged. Head, ears, eyes, nose, mouth and throat are normal. Neck veins are not distended. Thyroid is not enlarged. Chest is clear. Cardiac exam demonstrates normal sinus rhythm, and there are no murmurs or extra sounds. The abdomen is soft and nontender without any visceromegaly or masses. Bowel sounds are present. Extremities are normal. Neurologically she is intact. She is admitted to the hospital with the diagnoses: 1. History of coronary artery disease. 2. Chronic renal failure. RECOMMENDATIONS: None at this time. Thank you. Respectfully, Derick Durand II, M.D. JAM / LADONNA: [id number] /
== END 2022-04-23 10:01 | disposition home or self-care (01) ==
LOC: CATHCVL 06:21 → 6NMEDSUR 08:20 → CATHCVL 04-23 10:01
PROVIDERS: ATTEND Internal Medicine Interventional Cardiology
DX: I25.10 Atherosclerotic heart disease of native coronary artery without angina pectoris (principal); Z20.822 Contact with and (suspected) exposure to COVID-19; I12.0 Hypertensive chronic kidney disease with stage 5 chronic kidney disease or end stage renal disease; N18.6 End stage renal disease; Z94.0 Kidney transplant status; I25.2 Old myocardial infarction; E78.5 Hyperlipidemia, unspecified
CPT/HCPCS: 94640 ×2; 94760; 93571; 93454; 82565; 87635; C1769 ×3; C9600; C1887; C1894; C1725; C1874; J2250; J2001; J3010; J1644; J1170; J0153; Q9967

== ENCOUNTER → 2025-01-31 | Outpatient (CLI) | payer MEDICARE, OTHER ==
--- NOTE | 2025-02-01 07:50 | MM ---
Reason for Exam: Screening (asymptomatic). Last mammogram was performed 1 year(s) and 2 month(s) ago. Patient History: Menarche at age 12. First Full-Term at age 20. Postmenopausal. Patient has history of breast feeding. Hormonal Contraceptives for 4 years from age 17 until age 21. Risk Values: Solange 5 year model risk: 1.5%. NCI Lifetime model risk: 5.6%. Prior Study Comparison: 08/29/2009 Bilateral Screening Mammogram, [facility]. 05/01/2022 Bilateral MG screening mammo w CAD - 2, Unknown. 12/23/2023 Bilateral MG screening mammo w CAD - 2, Unknown. Tissue Density: The breasts are almost entirely fatty. Findings: Analyzed By CAD. Right breast: There is no suspicious group of microcalcifications or new suspicious mass. Benign-appearing calcifications right breast. Left breast: There is no suspicious group of microcalcifications or new suspicious mass. Benign-appearing calcifications left breast. Overall Assessment: Benign, BI-RAD 2 Management: Screening Mammogram of both breasts in [address] [facility] will attempt to contact patient to return for supplemental views and ultrasound if indicated. Patient should continue monthly self-breast exams. A clinical breast exam by your physician is recommended on an annual basis. This exam should not preclude additional follow-up of suspicious palpable abnormalities. Note on Solange scores and lifetime risk: 1. A Solange score greater than 3% is considered moderate risk. If this is the case, consider specialist referral to assess eligibility for a risk reducing agent. 2. If overall lifetime risk for the development of breast cancer is 20% or higher, the patient may qualify for future screening with alternating mammogram and breast MRI. [facility], , 02/01/2025 7:47 AM. Electronically signed and approved by: Trevor Taylor DO
== END | disposition home or self-care (01) ==
LOC: RADMAMWWP 14:40
PROVIDERS: ATTEND Family Medicine
DX: Z12.31 Encounter for screening mammogram for malignant neoplasm of breast (principal); R92.313 Mammographic fatty tissue density, bilateral breasts; R92.1 Mammographic calcification found on diagnostic imaging of breast; Z78.0 Asymptomatic menopausal state; Z92.0 Personal history of contraception
CPT/HCPCS: 77067